=== PATIENT | female | born 1940 | race Caucasian/White ===

== ENCOUNTER 2017-02-02 16:28 | Inpatient (IN) | payer MEDICARE, OTHER ==
[2017-02-02] MEDS ORDERED: methylPREDNISolone Sodium Succinate 125 MG/2 ML SDV IVPUSH ONE (16:39)
[2017-02-02] MEDS ORDERED: Albuterol/Ipratropium 3.0-0.5 MG/3 ML Neb Soln NEB ONE (16:39)
--- NOTE | 2017-02-02 16:40 | EDM.PDOC ---
ED HPI GENERAL MEDICAL PROBLEM - General Chief Complaint: Respiratory Problem Stated Complaint: SOB [id number] Time Seen by Provider: 02/02/17 16:30 Source of Information: Reports: Patient, Family, RN, RN Notes Reviewed History Limitations: Reports: No Limitations - History of Present Illness INITIAL COMMENTS - FREE TEXT/NARRATIVE: Patient seen in clinic yesterday and started on an antibiotic. Complaint of shortness of breath with cough and wheezing. Denies chest pain or chills. Patient thinks she may have had some low grade fever. Has been using nebulizer, but still getting worse. Does not have home oxygen. Severity: Severe Improves with: Reports: None Associated Symptoms: Reports: No Other Symptoms - Related Data Allergies Allergy/AdvReac Type Severity Reaction Status Date / Time No Known Allergies Allergy Verified 12/21/15 20:05 Home Meds: Home Meds Fluticasone/Salmeterol [Advair 100-50] 2 puff INH BID PRN 07/28/13 [History] Tiotropium [Spiriva Handihaler] 1 puff INH DAILY 07/28/13 [History] Warfarin [Coumadin] 7.5 mg PO DAILY 07/28/13 [History] Albuterol [Proventil HFA] 2 puff INH Q4H PRN 03/26/14 [History] Levothyroxine [Synthroid] 50 mcg PO ACBRK 03/26/14 [History] Sertraline [Zoloft] 25 mg PO DAILY 03/26/14 [History] Gluc HCl/Csa/[place] Hy/Hyalur Ac [Glucosamine Chondroitin] 2 tab PO DAILY [History] Ipratropium/Albuterol Sulfate [Duoneb 0.5 mg-3 mg/3 ml Soln] 1 ampule INH Q4HR PRN 05/01/14 [History] Multivitamin [Multivitamins] 1 tab PO DAILY 05/01/14 [History] Rolaids 2 tab.chew CHEW ASDIRECTED PRN 05/01/14 [History] atorvaSTATin Calcium [Atorvastatin Calcium] 20 mg PO DAILY 12/21/15 [History] Past Medical History HEENT History: Reports: Cataract, Impaired Vision, Other (See Below) Other HEENT History: very early cataracts Cardiovascular History: Reports: High Cholesterol Respiratory History: Reports: Asthma, Bronchitis, Recurrent, COPD, SOB 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: 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: 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: Musculoskeletal History: Reports: Arthritis, Fracture, Other (See Below) Other Musculoskeletal History: history of fractured wrist (right), fractured clavicle Neurological History: Reports: CVA Psychiatric History: Reports: Anxiety, Depression Endocrine/Metabolic History: Reports: Hypothyroidism - Past Surgical History HEENT Surgical History: Reports: Tonsillectomy GI Surgical History: Reports: Appendectomy Female Surgical History: Reports: D&C Social & Family History - Family History Family Medical History: Noncontributory - Tobacco Use Smoking Status *Q: Current Every Day Smoker Years of Tobacco use: 58 Packs/Tins Daily: 1 Used Tobacco, but Quit: No Second Hand Smoke Exposure: Yes - Caffeine Use Caffeine Use: Reports: Coffee - Alcohol Use Days Per Week of Alcohol Use: 0 - Recreational Drug Use Recreational Drug Use: No - Living Situation & Occupation Living situation: Reports: with Family ED ROS GENERAL - Review of Systems Review Of Systems: ROS reveals no pertinent complaints other than HPI. ED EXAM, GENERAL - Physical Exam Exam: See Below Exam Limited By: No Limitations General Appearance: Other (frail, elderly, chronically ill appearing, thin with increased work of breathing.) Eye Exam: Bilateral Eye: Normal Inspection Ears: Normal External Exam, Normal Canal, Hearing Grossly Normal, Normal TMs Nose: Normal Inspection, Normal Mucosa, No Blood Throat/Mouth: Other (dry oral membranes) Head: Atraumatic, Normocephalic Neck: Normal Inspection, Supple, Non-Tender, Full Range of Motion Respiratory/Chest: Decreased Breath Sounds (significant decreased bibasilar breath sounds. Course breath sounds with ispiratory/expiratory wheezes throughout. ) Cardiovascular: Tachycardia, Irregularly Irregular GI/Abdominal: Normal Bowel Sounds, Soft, Non-Tender, No Organomegaly, No Distention, No Abnormal Bruit, No Mass Back Exam: Normal Inspection, Full Range of Motion, NT Extremities: Normal Inspection, Normal Range of Motion, Non-Tender, Normal Capillary Refill, No Pedal Edema Neurological: Alert, Oriented, CN II-XII Intact, Normal Cognition, Normal Gait, Normal Reflexes, No Motor/Sensory Deficits Psychiatric: Anxious Skin Exam: Warm, Dry, Intact, Normal Color, No Rash Lymphatic: No Adenopathy EKG INTERPRETATION EKG Date: 02/02/17 Time: 16:43 Rhythm: a-fib (with rapid ventricualr rate.) Rate (beats/min): 151 [place]: normal P-wave: present QRS: RBBB (borderline) ST-T: normal QT: normal Course - Vital Signs Last Recorded V/S: Last Vital Signs Temp Pulse 144 H 02/02/17 16:55 Resp BP Pulse Ox 90 L 02/02/17 16:55 - Orders/Labs/Meds Orders: Active Orders 24 hr Category Date Time Status EKG 12 Lead [EKG Documentation Completion] [RC] STAT Care 02/02/17 16:38 Active Overnight Pulse Oximetry [RC] Click To Edit Care 02/02/17 16:39 Active Peripheral IV Care [RC] . DIRECTED Care 02/02/17 16:39 Active RT Aerosol Therapy [RC] ASDIRECTED Care 02/02/17 16:40 Active Chest 1V Frontal [CR] Stat Exams 02/02/17 16:38 Taken CULTURE BLOOD [BC] Stat Lab 02/02/17 16:50 Received CULTURE BLOOD [BC] Stat Lab 02/02/17 16:55 Received UA W/MICROSCOPIC [URIN] Stat Lab 02/02/17 16:38 Uncollected Diltiazem [Cardizem] 100 mg Med 02/02/17 17:45 Active Sodium Chloride 0.9% [Normal Saline] 100 ml IV TITRATE Levofloxacin/Dextrose 5%-Water [Levaquin in D5W 500 MG/ Med 02/02/17 16:52 Active 100 ML] 500 mg Premix Bag 1 bag IV ONETIME Sodium Chloride 0.9% [Saline Flush] Med 02/02/17 16:38 Active 10 ml FLUSH ASDIRECTED PRN Blood Culture x2 Reflex Set [OM.PC] Stat Oth 02/02/17 16:38 Ordered Peripheral IV Insertion Adult [OM.PC] Stat Oth 02/02/17 16:38 Ordered Pulse Oximetry Continuous Monitoring [OM.PC] Routine Oth 02/02/17 16:38 Ordered RT Supplemental Oxygen Titration [RESPCARE] Stat Oth 02/02/17 16:38 Active Medication Orders Levofloxacin/Dextrose 500 mg/ (Premix) 100 mls @ 100 mls/hr IV ONETIME ONE Stop: 02/02/17 17:51 Last Admin: 02/02/17 17:04 Dose: 100 mls/hr Diltiazem HCl 100 mg/ Sodium (Chloride) 100 mls @ 5 mls/hr IV TITRATE FLORENCIO; 5 MG /HR PRN Reason: Protocol Sodium Chloride (Saline Flush) 10 ml FLUSH ASDIRECTED PRN PRN Reason: Keep Vein Open Last Admin: 02/02/17 16:59 Dose: 10 ml Labs: Laboratory Tests 02/02/17 02/02/17 02/02/17 Range/Units 16:50 16:50 16:55 WBC 13.2 H (5.0-10.0) 10^3/uL RBC 4.71 (4.2-5.4) 10^6/uL Hgb 14.3 (12.0-16.0) g/dL Hct 43.6 (37.0-47.0) % MCV 92.6 (80-100) fL MCH 30.4 (27.0-34.0) pg MCHC 32.8 L (33.0-35.0) g/dL Plt Count 222 (150-450) 10^3/uL Neut % (Auto) 88.6 H (42.2-75.2) % Lymph % (Auto) 5.3 L (20.5-50.1) % [place] % (Auto) 5.8 (2-8) % Eos % (Auto) 0.1 L (1.0-3.0) % Baso % (Auto) 0.2 (0.0-1.0) % PT 33.9 H (9.0-12.0) SEC INR 3.4 H (0.9-1.2) Sodium (135-145) mmol/L Potassium (3.6-5.0) mmol/L Chloride (101-111) mmol/L Carbon Dioxide (21.0-31.0) mmol/L Anion Gap BUN (7-18) mg/dL Creatinine (0.6-1.3) mg/dL Est Cr Clr Drug Dosing Estimated GFR (MDRD) BUN/Creatinine Ratio Glucose (74-105) mg/dL Lactic Acid 1.8 (0.5-2.2) mmol/L Calcium (8.4-10.2) mg/dl Total Bilirubin (0.2-1.0) mg/dL AST (10-42) IU/L ALT (10-60) IU/L Alkaline Phosphatase (42-121) IU/L Troponin I (0.00-0.02) ng/ml B-Natriuretic Peptide (0-100) pg/ml Total Protein (6.7-8.2) g/dl Albumin (3.2-5.5) g/dl Globulin Albumin/Globulin Ratio 02/02/17 Range/Units 16:55 WBC (5.0-10.0) 10^3/uL RBC (4.2-5.4) 10^6/uL Hgb (12.0-16.0) g/dL Hct (37.0-47.0) % MCV (80-100) fL MCH (27.0-34.0) pg MCHC (33.0-35.0) g/dL Plt Count (150-450) 10^3/uL Neut % (Auto) (42.2-75.2) % Lymph % (Auto) (20.5-50.1) % [place] % (Auto) (2-8) % Eos % (Auto) (1.0-3.0) % Baso % (Auto) (0.0-1.0) % PT (9.0-12.0) SEC INR (0.9-1.2) Sodium 138 (135-145) mmol/L Potassium 4.0 (3.6-5.0) mmol/L Chloride 101 (101-111) mmol/L Carbon Dioxide 27.0 (21.0-31.0) mmol/L Anion Gap 14.0 BUN 10 (7-18) mg/dL Creatinine 0.6 (0.6-1.3) mg/dL Est Cr Clr Drug Dosing TNP Estimated GFR (MDRD) > 60 BUN/Creatinine Ratio 16.66 Glucose 121 H (74-105) mg/dL Lactic Acid (0.5-2.2) mmol/L Calcium 9.0 (8.4-10.2) mg/dl Total Bilirubin 0.8 (0.2-1.0) mg/dL AST 25 (10-42) IU/L ALT 22 (10-60) IU/L Alkaline Phosphatase 54 (42-121) IU/L Troponin I 0.02 (0.00-0.02) ng/ml B-Natriuretic Peptide 34 (0-100) pg/ml Total Protein 7.2 (6.7-8.2) g/dl Albumin 4.2 (3.2-5.5) g/dl Globulin 3.0 Albumin/Globulin Ratio 1.40 Meds: Medications Generic Name Dose Route Start Last Admin Trade Name Freq PRN Reason Stop Dose Admin Levofloxacin/Dextrose 500 mg/ 100 mls @ 100 mls/hr 02/02/17 16:52 02/02/17 17 :04 Premix IV 02/02/17 17:51 100 mls/hr ONETIME ONE Administration Diltiazem HCl 100 mg/ Sodium 100 mls @ 5 mls/hr 02/02/17 17:45 Chloride IV TITRATE FLORENCIO Protocol 5 MG/HR Sodium Chloride 10 ml 02/02/17 16:38 02/02/17 16:59 Saline Flush FLUSH 10 ml ASDIRECTED PRN Administration Keep Vein Open Discontinued Medications Generic Name Dose Route Start Last Admin Trade Name Freq PRN Reason Stop Dose Admin Albuterol/Ipratropium 3 ml 02/02/17 16:39 02/02/17 16:59 Duoneb 3.0-0.5 Mg/3 Ml NEB 02/02/17 16:40 3 ml ONETIME ONE Administration Diltiazem HCl 10 mg 02/02/17 16:52 02/02/17 17:00 Diltiazem IVPUSH 02/02/17 16:53 10 mg ONETIME ONE Administration Diltiazem HCl 10 mg 02/02/17 17:37 Diltiazem IVPUSH 02/02/17 17:38 ONETIME ONE Hydromorphone HCl 1 mg 02/02/17 17:36 Dilaudid IVPUSH 02/02/17 17:37 ONETIME ONE Methylprednisolone Sodium Succinate 125 mg 02/02/17 16:39 02/02/17 16:59 Solu-Medrol IVPUSH 02/02/17 16:40 125 mg ONETIME ONE Administration - Radiology Interpretation Free Text/Narrative:: Chest x-ray: Large lung volumes/hyperinflation, flattened diaphragms, chronic COPD changes, basilar scarring versus atelectasis and no focal infiltrates. See rad report. Departure - Departure Time of Disposition: 17:38 ((Admit to Dr. Gonzales)) Disposition: Admitted As Inpatient 68 Condition: serious Clinical Impression: Acute exacerbation of chronic obstructive pulmonary disease, Atrial fibrillation with rapid ventricular response Acute on chronic respiratory failure Qualifiers: Respiratory failure complication: hypoxia Qualified Code(s): J96.21 - Acute and chronic respiratory failure with hypoxia - Discharge Information Forms: ED Department Discharge - My Orders Last 24 Hours: My Active Orders 02/02/17 16:38 EKG 12 Lead [EKG Documentation Completion] [RC] STAT Chest 1V Frontal [CR] Stat UA W/MICROSCOPIC [URIN] Stat Sodium Chloride 0.9% [Saline Flush] 10 ml FLUSH ASDIRECTED PRN Blood Culture x2 Reflex Set [OM.PC] Stat Peripheral IV Insertion Adult [OM.PC] Stat Pulse Oximetry Continuous Monitoring [OM.PC] Routine RT Supplemental Oxygen Titration [RESPCARE] Stat 02/02/17 16:39 Overnight Pulse Oximetry [RC] Click To Edit Peripheral IV Care [RC] . DIRECTED 02/02/17 16:40 RT Aerosol Therapy [RC] ASDIRECTED 02/02/17 16:50 CULTURE BLOOD [BC] Stat 02/02/17 16:52 Levofloxacin/Dextrose 5%-Water [Levaquin in D5W 500 MG/100 ML] 500 mg Premix Bag 1 bag IV ONETIME 02/02/17 16:55 CULTURE BLOOD [BC] Stat 02/02/17 17:45 Diltiazem [Cardizem] 100 mg Sodium Chloride 0.9% [Normal Saline] 100 ml IV TITRATE - Assessment/Plan Last 24 Hours: My Active Orders 02/02/17 16:38 EKG 12 Lead [EKG Documentation Completion] [RC] STAT Chest 1V Frontal [CR] Stat UA W/MICROSCOPIC [URIN] Stat Sodium Chloride 0.9% [Saline Flush] 10 ml FLUSH ASDIRECTED PRN Blood Culture x2 Reflex Set [OM.PC] Stat Peripheral IV Insertion Adult [OM.PC] Stat Pulse Oximetry Continuous Monitoring [OM.PC] Routine RT Supplemental Oxygen Titration [RESPCARE] Stat 02/02/17 16:39 Overnight Pulse Oximetry [RC] Click To Edit Peripheral IV Care [RC] . DIRECTED 02/02/17 16:40 RT Aerosol Therapy [RC] ASDIRECTED 02/02/17 16:50 CULTURE BLOOD [BC] Stat 02/02/17 16:52 Levofloxacin/Dextrose 5%-Water [Levaquin in D5W 500 MG/100 ML] 500 mg Premix Bag 1 bag IV ONETIME 02/02/17 16:55 CULTURE BLOOD [BC] Stat 02/02/17 17:45 Diltiazem [Cardizem] 100 mg Sodium Chloride 0.9% [Normal Saline] 100 ml IV TITRATE
[2017-02-02] MEDS ORDERED: Diltiazem 25 MG/5 ML SDV IVPUSH ONE ×2 (16:52→17:37)
[2017-02-02] MEDS ORDERED: Levofloxacin/Dextrose 5%-Water 500 MG in Premix Bag 1 BAG IV ONE (16:52)
[2017-02-02] MEDS: Sodium Chloride 0.9% 10 ML Syringe FLUSH PRN ×4 (16:59→22:42)
[2017-02-02 17:23] LABS: CHLORIDE,CL 101 mmol/L (101-111); SODIUM,NA 138 mmol/L (135-145)
[2017-02-02] MEDS ORDERED: HYDROmorphone 1 MG/ML Syringe IVPUSH ONE (17:36)
[2017-02-02] MEDS ORDERED: Sodium Chloride 0.9% 1,000 ML IV ONE (17:41)
[2017-02-02] MEDS ORDERED: Diltiazem 100 MG in Sodium Chloride 0.9% 100 ML IV SCH (17:45)
[2017-02-02] MEDS ORDERED: Albuterol 0.083% 2.5 MG/3 ML Neb Soln NEB PRN (18:24)
[2017-02-02] MEDS ORDERED: Docusate Sodium 100 MG Cap PO PRN (18:27)
[2017-02-02] MEDS ORDERED: Ondansetron 4 MG Tab.DIS PO PRN (18:27)
[2017-02-02] MEDS ORDERED: Acetaminophen 325 MG Tab PO PRN (18:27)
[2017-02-02] MEDS ORDERED: Zolpidem 5 MG Tab PO PRN (18:27)
[2017-02-02] MEDS ORDERED: Sodium Chloride 0.9% 10 ML Syringe FLUSH PRN (18:27)
--- NOTE | 2017-02-02 18:35 | PCM.HP ---
H&P History of Present Illness - General Date of Service: 02/02/17 Admit Problem/Dx: Admission Diagnosis/Problem Admission Diagnosis/Problem COPD, Severe chronic obstructive pulmonary disease Source of Information: Patient - History of Present Illness Initial Comments - Free Text/Narative: 76-year-old lady with a history of severe COPD, continued smoking, history of CVA on long-term anticoagulation and anxiety presented with increasing shortness of breath over 7-10 days. She is increasingly weak, limited exercise tolerance. Shortness of breath is worse with activity, not associated with fever or maybe low grade, has chronic cough unchanged. No sputum went to the clinic yesterday, was given antibiotics. Shortness of breath continued and she came to the emergency room. - Related Data Allergies/Adverse Reactions: Allergies Allergy/AdvReac Type Severity Reaction Status Date / Time No Known Allergies Allergy Verified 02/02/17 18:13 Home Medications: Home Meds Fluticasone/Salmeterol [Advair 100-50] 2 puff INH BID PRN 07/28/13 [History] Tiotropium [Spiriva Handihaler] 1 puff INH DAILY 07/28/13 [History] Warfarin [Coumadin] 7.5 mg PO DAILY 07/28/13 [History] Albuterol [Proventil HFA] 2 puff INH Q4H PRN 03/26/14 [History] Levothyroxine [Synthroid] 50 mcg PO ACBRK 03/26/14 [History] Sertraline [Zoloft] 25 mg PO DAILY 03/26/14 [History] Gluc HCl/Csa/[place] Hy/Hyalur Ac [Glucosamine Chondroitin] 2 tab PO DAILY [History] Ipratropium/Albuterol Sulfate [Duoneb 0.5 mg-3 mg/3 ml Soln] 1 ampule INH Q4HR PRN 05/01/14 [History] Multivitamin [Multivitamins] 1 tab PO DAILY 05/01/14 [History] Rolaids 2 tab.chew CHEW ASDIRECTED PRN 05/01/14 [History] atorvaSTATin Calcium [Atorvastatin Calcium] 20 mg PO DAILY 12/21/15 [History] Past Medical History HEENT History: Reports: Cataract, Impaired Vision, Other (See Below) Other HEENT History: very early cataracts Cardiovascular History: Reports: High Cholesterol Respiratory History: Reports: Asthma, Bronchitis, Recurrent, COPD, SOB 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: Reports: 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: Musculoskeletal History: Reports: Arthritis, Fracture, Other (See Below) Other Musculoskeletal History: history of fractured wrist (right), fractured clavicle Neurological History: Reports: CVA Psychiatric History: Reports: Anxiety, Depression Endocrine/Metabolic History: Reports: Hypothyroidism - Past Surgical History HEENT Surgical History: Reports: Tonsillectomy GI Surgical History: Reports: Appendectomy Female Surgical History: Reports: D&C Social & Family History - Family History Family Medical History: Noncontributory - Tobacco Use Smoking Status *Q: Current Every Day Smoker Years of Tobacco use: 58 Packs/Tins Daily: 1 Used Tobacco, but Quit: No Second Hand Smoke Exposure: Yes - Caffeine Use Caffeine Use: Reports: Coffee - Alcohol Use Days Per Week of Alcohol Use: 0 - Recreational Drug Use Recreational Drug Use: No - Living Situation & Occupation Living situation: Reports: with Family H&P Review of Systems - Review of Systems: Review Of Systems: See Below General: Reports: Fever (maybe low-grade), Weakness. Denies: Chills Pulmonary: Reports: Shortness of Breath, Wheezing, Cough. Denies: Sputum Cardiovascular: Denies: Chest Pain Gastrointestinal: Denies: Abdominal Pain Genitourinary: Denies: Dysuria Musculoskeletal: Denies: Neck Pain Psychiatric: Denies: Confusion Exam - Exam Exam: See Below - Vital Signs Vital Signs: Last Vital Signs Temp 37.4 C 02/02/17 18:19 Pulse 125 H 02/02/17 18:19 Resp 24 H 02/02/17 18:19 BP 134/63 02/02/17 18:19 Pulse Ox 94 L 02/02/17 18:19 Weight: 45.359 kg - Exam Quality Assessment: Supplemental Oxygen General: Alert, Oriented Neck: Supple Lungs: Decreased Breath Sounds. No: Normal Respiratory Effort (increased respiratory effort) Cardiovascular: Regular Rate, Tachycardia Abdomen: Normal Bowel Sounds, Soft Back Exam: Normal Inspection Skin: Warm, Dry, Intact Neuro Extensive - Mental Status: Alert, Oriented x3, Normal Mood/Affect, Normal Cognition Psychiatric: Alert, Normal Affect, Normal Mood - Patient Data Result Diagrams: 02/02/17 16:55 02/02/17 16:55 EKG INTERPRETATION EKG Date: 02/02/17 Rhythm: other (sinus tachycardia) *Q Meaningful Use (ADM) - VTE *Q VTE Criteria *Q: - Stroke *Q Stroke Criteria *Q: - AMI *Q AMI Criteria *Q: - Problem List (1) Acute exacerbation of chronic obstructive pulmonary disease SNOMED Code(s): 895793416 ICD Code: J44.1 - CHRONIC OBSTRUCTIVE PULMONARY DISEASE W (ACUTE) EXACERBATION Status: Acute Current Visit: Yes (2) Acute on chronic respiratory failure SNOMED Code(s): 88112150, 09689727 ICD Code: J96.20 - ACUTE AND CHR RESP FAILURE, UNSP W HYPOXIA OR HYPERCAPNIA Status: Acute Current Visit: Yes Qualifiers: Respiratory failure complication: hypoxia Qualified Code(s): J96.21 - Acute and chronic respiratory failure with hypoxia Problem List Initiated/Reviewed/Updated: Yes Orders Last 24hrs: Active Orders 24 hr Category Date Time Status Patient Status [ADT] Routine ADT 02/02/17 18:28 Ordered Antiembolic Devices [RC] PER UNIT ROUTINE Care 02/02/17 18:29 Ordered Oxygen Therapy [RC] PRN Care 02/02/17 18:28 Ordered RT Aerosol Therapy [RC] ASDIRECTED Care 02/02/17 18:22 Ordered Telemetry Monitoring [Cardiac Monitoring] [RC] . Care 02/02/17 18:24 Ordered DIRECTED Up With Assistance [RC] ASDIRECTED Care 02/02/17 18:27 Ordered VTE/DVT Education [RC] PER UNIT ROUTINE Care 02/02/17 18:28 Ordered Vital Signs [RC] Q4H Care 02/02/17 18:28 Ordered Regular Diet [DIET] Diet 02/02/17 Breakfast Ordered BASIC METABOLIC PANEL,BMP [CHEM] AM Lab 02/03/17 05:15 Ordered CBC WITH AUTO DIFF [HEME] AM Lab 02/03/17 05:15 Ordered CULTURE SPUTUM + SMEAR [RM] Routine Lab 02/02/17 18:27 Uncollected INR,PT,PROTHROMBIN TIME [COAG] AM Lab 02/03/17 05:15 Ordered Acetaminophen [Tylenol] Med 02/02/17 18:27 Ordered 650 mg PO Q4H PRN Albuterol [Proventil Neb Soln] Med 02/02/17 18:24 Ordered 2.5 mg NEB Q4HRRT PRN Albuterol/Ipratropium [DuoNeb 3.0-0.5 MG/3 ML] Med 02/03/17 01:00 Ordered 3 ml NEB Q6HRRT Azithromycin [Zithromax] 500 mg Med 02/03/17 07:00 Ordered Sodium Chloride 0.9% [Normal Saline] 250 ml IV Q24H Docusate Sodium [Colace] Med 02/02/17 18:27 Ordered 100 mg PO BID PRN Levothyroxine [Synthroid] Med 02/02/17 18:30 Ordered 50 mcg PO ACBRK Multivitamin [Multivitamins] Med 02/03/17 09:00 Ordered 1 tab PO DAILY Ondansetron [Zofran ODT] Med 02/02/17 18:27 Ordered 4 mg PO Q4H PRN Sertraline [Zoloft] Med 02/03/17 09:00 Ordered 25 mg PO DAILY Sodium Chloride 0.9% [Saline Flush] Med 02/02/17 18:27 Ordered 10 ml FLUSH ASDIRECTED PRN Warfarin Pharmacy to Dose [Pharmacy to Dose - Warfarin] Med 02/02/17 18:30 Ordered 1 dose .XX ASDIRECTED Zolpidem [Ambien] Med 02/02/17 18:27 Ordered 5 mg PO BEDTIME PRN atorvaSTATin [Lipitor] Med 02/03/17 09:00 Ordered 20 mg PO DAILY cefTRIAXone [Rocephin] 1 gm Med 02/03/17 07:00 Ordered Sodium Chloride 0.9% [Normal Saline] 50 ml IV Q24H methylPREDNISolone Sod Succ [Solu-MEDROL] Med 02/02/17 22:00 Ordered 40 mg IVPUSH Q8H Saline Lock Insert [OM.PC] Routine Oth 02/02/17 18:27 Ordered Sequential Compression Device [OM.PC] Per Unit Routine Oth 02/02/17 18:29 Ordered Resuscitation Status Routine Resus Stat 02/02/17 18:27 Ordered Medication Orders Acetaminophen (Tylenol) 650 mg PO Q4H PRN PRN Reason: Pain (Mild 1-3)/fever Albuterol (Proventil Neb Soln) 2.5 mg NEB Q4HRRT PRN PRN Reason: sob Albuterol/Ipratropium (Duoneb 3.0-0.5 Mg/3 Ml) 3 ml NEB Q6HRRT FLORENCIO Atorvastatin Calcium (Lipitor) 20 mg PO DAILY FLORENCIO Docusate Sodium (Colace) 100 mg PO BID PRN PRN Reason: Constipation Sodium Chloride (Normal Saline) 1,000 mls @ 999 mls/hr IV .BOLUS ONE Stop: 02/02/17 18:41 Last Admin: 02/02/17 18:14 Dose: 999 mls/hr Azithromycin 500 mg/ Sodium (Chloride) 250 mls @ 250 mls/hr IV Q24H [facility] Ceftriaxone Sodium 1 gm/ (Sodium Chloride) 50 mls @ 100 mls/hr IV Q24H FLORENCIO Levothyroxine Sodium (Synthroid) 50 mcg PO ACBRK FLORENCIO Methylprednisolone Sodium Succinate (Solu-Medrol) 40 mg IVPUSH Q8H [facility] Non-Formulary Medication (Multivitamin [Multivitamins]) 1 tab PO DAILY [facility] Non-Formulary Medication (Sertraline [Zoloft]) 25 mg PO DAILY [facility] Ondansetron HCl (Zofran Odt) 4 mg PO Q4H PRN PRN Reason: nausea, able to take PO Sodium Chloride (Saline Flush) 10 ml FLUSH ASDIRECTED PRN PRN Reason: Keep Vein Open Last Admin: 02/02/17 16:59 Dose: 10 ml Sodium Chloride (Saline Flush) 10 ml FLUSH ASDIRECTED PRN PRN Reason: Keep Vein Open Warfarin Sodium (Pharmacy To Dose - Warfarin) 1 dose .XX ASDIRECTED [facility] Zolpidem Tartrate (Ambien) 5 mg PO BEDTIME PRN PRN Reason: Sleep Assessment/Plan Comment:: Acute COPD exacerbation With a history of severe COPD Baseline FEV1 is 28% At home she is on Spiriva, dulera and albuterol, exercise and it is about one block per Dr. Yepez Start IV SoluMedrol Scheduled DuoNeb nebulizer Use p.r.n. albuterol For now hold the Spiriva and Dulera Leukocytosis This may be stress reaction, possible upper respiratory tract infection Treat empirically with Rocephin and azithromycin Obtain sputum culture Smoking This is importance of cessation Does not want a nicotine patch Acute on chronic hypoxemic respiratory failure will supplement oxygen Might need walking desaturation study before discharge Sinus tachycardia Monitor on telemetry Follow with the nebulizers, Improve respiratory failure History of prior stroke On Coumadin Monitor INR Adjust Coumadin for target INR of 2-3 Dyslipidemia Continue statin Anxiety Continue Zoloft DVT prophylaxis is with full dose anticoagulation with Coumadin
[2017-02-02] MEDS: Levothyroxine 50 MCG Tab PO SCH (20:00)
[2017-02-02] MEDS: methylPREDNISolone Sodium Succinate 40 MG/1 ML SDV IVPUSH SCH (22:35)
[2017-02-03] MEDS: Albuterol/Ipratropium 3.0-0.5 MG/3 ML Neb Soln NEB SCH ×5 (00:43→17:07)
[2017-02-03] MEDS: Sodium Chloride 0.9% 10 ML Syringe FLUSH PRN ×5 (05:51→22:07)
[2017-02-03] MEDS: methylPREDNISolone Sodium Succinate 40 MG/1 ML SDV IVPUSH SCH ×3 (05:52→22:07)
[2017-02-03] MEDS: Levothyroxine 50 MCG Tab PO SCH (05:58)
[2017-02-03] MEDS: cefTRIAXone 1 GM in Sodium Chloride 0.9% 50 ML IV SCH (06:05)
[2017-02-03] MEDS ORDERED: Azithromycin 500 MG Vial ONE (06:19)
[2017-02-03] MEDS: Azithromycin 500 MG in Sodium Chloride 0.9% 250 ML IV SCH (06:37)
[2017-02-03 07:15] LABS: CHLORIDE,CL 104 mmol/L (101-111); SODIUM,NA 139 mmol/L (135-145)
[2017-02-03] MEDS: Multivitamins,Therapeutic Tab PO SCH (09:02)
[2017-02-03] MEDS: atorvaSTATin 20 MG Tab PO SCH (09:02)
[2017-02-03] MEDS: Sertraline 50 MG Tab PO SCH (09:03)
--- NOTE | 2017-02-03 10:46 | PCM.PN ---
- General Info Date of Service: 02/03/17 Admission Dx/Problem (Free Text): Admission Diagnosis/Problem Admission Diagnosis/Problem COPD, Severe chronic obstructive pulmonary disease Subjective Update: feeling better. Less shortness of breath but still moderate to severe. nonproductive cough. Telemetry showed sinus rhythm, not tachycardic. No associated chest pain. No fever or chills. Functional Status: Reports: tolerating diet - Review of Systems General: Reports: Weakness. Denies: Fever Pulmonary: Reports: shortness of breath Cardiovascular: Denies: Chest Pain Gastrointestinal: Denies: Abdominal pain Genitourinary: Denies: dysuria - Patient Data Vitals - most recent: Last Vital Signs Temp 36.6 C 02/03/17 08:17 Pulse 100 02/03/17 08:17 Resp 24 H 02/03/17 08:17 BP 131/59 L 02/03/17 08:17 Pulse Ox 97 02/03/17 08:17 Weight - most recent: 45.359 kg I&O - last 24 hours: Intake & Output 02/02/17 02/03/17 02/03/17 22:59 06:59 14:59 Intake Total 1002 42 400 Output Total 1150 Balance 1002 42 -750 Lab Results last 24 hrs: Laboratory Results - last 24 hr 02/02/17 02/03/17 02/03/17 Range/Units 20:35 06:33 06:33 WBC 11.3 H (5.0-10.0) 10^3/uL RBC 4.15 L (4.2-5.4) 10^6/uL Hgb 12.4 (12.0-16.0) g/dL Hct 38.8 (37.0-47.0) % MCV 93.5 (80-100) fL MCH 29.9 (27.0-34.0) pg MCHC 32.0 L (33.0-35.0) g/dL Plt Count 185 (150-450) 10^3/uL Neut % (Auto) 92.1 H (42.2-75.2) % Lymph % (Auto) 5.4 L (20.5-50.1) % [place] % (Auto) 2.4 (2-8) % Eos % (Auto) 0.0 L (1.0-3.0) % Baso % (Auto) 0.1 (0.0-1.0) % PT 37.3 H (9.0-12.0) SEC INR 3.7 H (0.9-1.2) Sodium (135-145) mmol/L Potassium (3.6-5.0) mmol/L Chloride (101-111) mmol/L Carbon Dioxide (21.0-31.0) mmol/L Anion Gap BUN (7-18) mg/dL Creatinine (0.6-1.3) mg/dL Est Cr Clr Drug Dosing mL/min Estimated GFR (MDRD) Glucose (74-105) mg/dL Calcium (8.4-10.2) mg/dl Urine Color Light yellow (YELLOW) Urine Appearance Slightly cloudy (CLEAR) Urine pH 6.0 (5.0-9.0) Ur Specific [place] 1.010 (1.005-1.030) Urine Protein Negative (NEGATIVE) Urine Glucose (UA) Negative (NEGATIVE) Urine Ketones Negative (NEGATIVE) Urine Occult Blood Small H (NEGATIVE) Urine Nitrite Negative (NEGATIVE) Urine Bilirubin Negative (NEGATIVE) Urine Urobilinogen 0.2 (0.2-1.0) mg/dL Ur Leukocyte Esterase Negative (NEGATIVE) Urine RBC 0-5 /HPF Urine WBC 0-5 (0-5/HPF) /HPF Ur Epithelial Cells Rare /HPF Amorphous Sediment Rare (0/HPF) /HPF Urine Bacteria Rare (0-FEW/HPF) /HPF //17 Range/Units 06:33 WBC (5.0-10.0) 10^3/uL RBC (4.2-5.4) 10^6/uL Hgb (12.0-16.0) g/dL Hct (37.0-47.0) % MCV (80-100) fL MCH (27.0-34.0) pg MCHC (33.0-35.0) g/dL Plt Count (150-450) 10^3/uL Neut % (Auto) (42.2-75.2) % Lymph % (Auto) (20.5-50.1) % [place] % (Auto) (2-8) % Eos % (Auto) (1.0-3.0) % Baso % (Auto) (0.0-1.0) % PT (9.0-12.0) SEC INR (0.9-1.2) Sodium 139 (135-145) mmol/L Potassium 3.9 (3.6-5.0) mmol/L Chloride 104 (101-111) mmol/L Carbon Dioxide 27.0 (21.0-31.0) mmol/L Anion Gap 11.9 BUN 12 (7-18) mg/dL Creatinine 0.6 (0.6-1.3) mg/dL Est Cr Clr Drug Dosing 58.90 mL/min Estimated GFR (MDRD) > 60 Glucose 135 H (74-105) mg/dL Calcium 8.9 (8.4-10.2) mg/dl Urine Color (YELLOW) Urine Appearance (CLEAR) Urine pH (5.0-9.0) Ur Specific [place] (1.005-1.030) Urine Protein (NEGATIVE) Urine Glucose (UA) (NEGATIVE) Urine Ketones (NEGATIVE) Urine Occult Blood (NEGATIVE) Urine Nitrite (NEGATIVE) Urine Bilirubin (NEGATIVE) Urine Urobilinogen (0.2-1.0) mg/dL Ur Leukocyte Esterase (NEGATIVE) Urine RBC /HPF Urine WBC (0-5/HPF) /HPF Ur Epithelial Cells /HPF Amorphous Sediment (0/HPF) /HPF Urine Bacteria (0-FEW/HPF) /HPF Med Orders - Current: Current Medications Acetaminophen (Tylenol) 650 mg PO Q4H PRN PRN Reason: Pain (Mild 1-3)/fever Albuterol (Proventil Neb Soln) 2.5 mg NEB Q4HRRT PRN PRN Reason: sob Albuterol/Ipratropium (Duoneb 3.0-0.5 Mg/3 Ml) 3 ml NEB Q6HRRT [facility] Last Admin: 02/03/17 07:20 Dose: 3 ml Atorvastatin Calcium (Lipitor) 20 mg PO DAILY [facility] Last Admin: 02/03/17 09:02 Dose: 20 mg Budesonide (Pulmicort) 0.5 mg NEB BIDRT [facility] Docusate Sodium (Colace) 100 mg PO BID PRN PRN Reason: Constipation Azithromycin 500 mg/ Sodium (Chloride) 250 mls @ 250 mls/hr IV Q24H [facility] Last Admin: 02/03/17 06:37 Dose: 250 mls/hr Ceftriaxone Sodium 1 gm/ (Sodium Chloride) 50 mls @ 100 mls/hr IV Q24H [facility] Last Admin: 02/03/17 06:05 Dose: 100 mls/hr Levothyroxine Sodium (Synthroid) 50 mcg PO ACBRK [facility] Last Admin: 02/03/17 05:58 Dose: 50 mcg Methylprednisolone Sodium Succinate (Solu-Medrol) 40 mg IVPUSH Q8H [facility] Last Admin: 02/03/17 05:52 Dose: 40 mg Multivitamins (Thera) 1 each PO DAILY [facility] Last Admin: 02/03/17 09:02 Dose: 1 each Ondansetron HCl (Zofran Odt) 4 mg PO Q4H PRN PRN Reason: nausea, able to take PO Sertraline HCl (Zoloft) 25 mg PO DAILY [facility] Last Admin: 02/03/17 09:03 Dose: 25 mg Sodium Chloride (Saline Flush) 10 ml FLUSH ASDIRECTED PRN PRN Reason: Keep Vein Open Last Admin: 02/03/17 06:36 Dose: 10 ml Sodium Chloride (Saline Flush) 10 ml FLUSH ASDIRECTED PRN PRN Reason: Keep Vein Open Warfarin Sodium (Pharmacy To Dose - Warfarin) 1 dose .XX ASDIRECTED [facility] Zolpidem Tartrate (Ambien) 5 mg PO BEDTIME PRN PRN Reason: Sleep Discontinued Medications Albuterol/Ipratropium (Duoneb 3.0-0.5 Mg/3 Ml) 3 ml NEB ONETIME ONE Stop: 02/02/17 16:40 Last Admin: 02/02/17 16:59 Dose: 3 ml Azithromycin (Zithromax) Confirm Administered Dose 500 mg .ROUTE .STK-MED ONE Stop: 02/03/17 06:20 Last Admin: 02/03/17 07:19 Dose: Not Given Diltiazem HCl (Diltiazem) 10 mg IVPUSH ONETIME ONE Stop: 02/02/17 16:53 Last Admin: 02/02/17 17:00 Dose: 10 mg Diltiazem HCl (Diltiazem) 10 mg IVPUSH ONETIME ONE Stop: 02/02/17 17:38 Last Admin: 02/02/17 17:48 Dose: 10 mg Hydromorphone HCl (Dilaudid) 1 mg IVPUSH ONETIME ONE Stop: 02/02/17 17:37 Last Admin: 02/03/17 00:59 Dose: Not Given Levofloxacin/Dextrose 500 mg/ (Premix) 100 mls @ 100 mls/hr IV ONETIME ONE Stop: 02/02/17 17:51 Last Admin: 02/02/17 17:04 Dose: 100 mls/hr Diltiazem HCl 100 mg/ Sodium (Chloride) 100 mls @ 5 mls/hr IV TITRATE FLORENCIO; 5 MG /HR PRN Reason: Protocol Sodium Chloride (Normal Saline) 1,000 mls @ 999 mls/hr IV .BOLUS ONE Stop: 02/02/17 18:41 Last Admin: 02/02/17 18:14 Dose: 999 mls/hr Methylprednisolone Sodium Succinate (Solu-Medrol) 125 mg IVPUSH ONETIME ONE Stop: 02/02/17 16:40 Last Admin: 02/02/17 16:59 Dose: 125 mg - Exam Quality Assessment: supplemental oxygen General: alert, oriented Neck: supple Lungs: Wheezing. No: Normal respiratory effort (increased) Cardiovascular: Regular Rate, Regular Rhythm Extremities: no edema Skin: warm, dry, intact Neurological: no new focal deficit Psy/Mental Status: alert, normal affect, normal mood - Problem List & Annotations (1) Acute exacerbation of chronic obstructive pulmonary disease SNOMED Code(s): 220547946 Code(s): J44.1 - CHRONIC OBSTRUCTIVE PULMONARY DISEASE W (ACUTE) EXACERBATION Status: Acute Current Visit: Yes (2) Acute on chronic respiratory failure SNOMED Code(s): 54976923, 58095013 Code(s): J96.20 - ACUTE AND CHR RESP FAILURE, UNSP W HYPOXIA OR HYPERCAPNIA Status: Acute Current Visit: Yes Qualifiers: Respiratory failure complication: hypoxia Qualified Code(s): J96.21 - Acute and chronic respiratory failure with hypoxia - Problem List Review Problem List Initiated/Reviewed/Updated: Yes - My Orders Last 24 Hours: My Active Orders 02/03/17 07:20 RT Chest Physiotherapy [RC] ASDIRECTED 02/03/17 09:03 RT Aerosol Therapy [RC] 02/03/17 18:00 Budesonide [Pulmicort] 0.5 mg NEB BIDRT 02/04/17 05:15 BASIC METABOLIC PANEL,BMP [CHEM] AM CBC WITH AUTO DIFF [HEME] AM - Plan Plan:: Acute COPD exacerbation With a history of severe COPD Baseline FEV1 is 28% At home she is on Spiriva, dulera and albuterol, exercise and it is about one block per Dr. Yepez continue IV SoluMedrol add Pulmicort Scheduled DuoNeb nebulizer Use p.r.n. albuterol For now hold the Spiriva and Dulera Leukocytosis This may be stress reaction, possible upper respiratory tract infection Treat empirically with Rocephin and azithromycin pending sputum and blood culture Smoking This is importance of cessation Does not want a nicotine patch Acute on chronic hypoxemic respiratory failure will supplement oxygen Might need walking desaturation study before discharge Sinus tachycardia improved Monitor on telemetry Follow with the nebulizers, Improve respiratory failure History of prior stroke On Coumadin Monitor INR Adjust Coumadin for target INR of 2-3 Dyslipidemia Continue statin Anxiety Continue Zoloft DVT prophylaxis is with full dose anticoagulation with Coumadin
[2017-02-03] MEDS ORDERED: Benzonatate 100 MG Cap PO PRN (10:49)
--- NOTE | 2017-02-03 14:57 | EKG ---
02/02/2017- CHRISTIAN HANSEN - EKG per my reading shows sinus tachycardia at the rate of 150s. MOD /[id number]
[2017-02-03] MEDS: Budesonide 0.5 MG/2 ML Neb Susp NEB SCH (17:07)
[2017-02-04] MEDS: Albuterol/Ipratropium 3.0-0.5 MG/3 ML Neb Soln NEB SCH ×2 (00:15→08:38)
[2017-02-04] MEDS: Levothyroxine 50 MCG Tab PO SCH (05:27)
[2017-02-04] MEDS: methylPREDNISolone Sodium Succinate 40 MG/1 ML SDV IVPUSH SCH (05:28)
[2017-02-04] MEDS: Sodium Chloride 0.9% 10 ML Syringe FLUSH PRN ×2 (05:31→06:15)
[2017-02-04] MEDS: cefTRIAXone 1 GM in Sodium Chloride 0.9% 50 ML IV SCH (06:13)
[2017-02-04] MEDS: Azithromycin 500 MG in Sodium Chloride 0.9% 250 ML IV SCH (06:43)
[2017-02-04 07:15] LABS: CHLORIDE,CL 103 mmol/L (101-111); SODIUM,NA 139 mmol/L (135-145)
[2017-02-04] MEDS: Budesonide 0.5 MG/2 ML Neb Susp NEB SCH (08:47)
[2017-02-04] MEDS: Multivitamins,Therapeutic Tab PO SCH (08:48)
[2017-02-04] MEDS: atorvaSTATin 20 MG Tab PO SCH (08:49)
[2017-02-04] MEDS: Sertraline 50 MG Tab PO SCH (08:49)
--- NOTE | 2017-02-04 10:57 | PCM.DCSUM1 ---
Discharge Summary - Hospital Course Free Text/Narrative:: The pt was admitted and treated for Acute COPD Exacerbation and Bronchitis. She was given Solumedrol 40 IV q8 hrs and Azithromycin as well as Ceftriaxone. She is doing well but her oxygen saturation is low at room air. she was on Duoneb and albuterol. she had her desaturaion stydy done while in hospital and her resting RA Oxygen saturaion was 88% and with exercising on RA oxygen saturation was 85%, and Exercising with 2L Oxygen, saturation was 92%. She will need home Oxygen, continuous 2L for 24 hrs . She will go home on Prednisone tapering and antibiotics Cefpodoxime 200 mg q12 hrs x 10 days. she will follow with PMD in a week with PMD HPI Initial Comments: This is a 76-year-old lady with a history of severe COPD, continued smoking, history of CVA on long-term anticoagulation and anxiety presented with increasing shortness of breath over 7-10 days. She is increasingly weak, limited exercise tolerance. Shortness of breath is worse with activity, not associated with fever has chronic cough unchanged. No sputum went to the clinic on 02/01 , was given antibiotics.Shortness of breath continued and she came to the emergency room and got admitted for COPD exacerbation and Bronchitis - Discharge Data Discharge Date: 02/04/17 Discharge Disposition: Home, Self-Care 01 Condition: Good - Patient Summary/Data Hospital Course: The pt was admitted and treated for Acute COPD Exacerbation and Bronchitis. She was given Solumedrol 40 IV q8 hrs and Azithromycin as well as Ceftriaxone. She is doing well but her oxygen saturation is low at room air. she was on Duoneb and albuterol. she had her desaturaion stydy done while in hospital and her resting RA Oxygen saturaion was 88% and with exercising on RA oxygen saturation was 85%, and Exercising with 2L Oxygen, saturation was 92%. She will need home Oxygen, continuous 2L for 24 hrs . She will go home on Prednisone tapering and antibiotics Cefpodoxime 200 mg q12 hrs x 1 0 days. she will follow with PMD in a week with PMD - Patient Instructions Diet: Regular Diet as Tolerated Activity: As Tolerated Other/Special Instructions: Pt will be going home on home oxygen 2L/24 hrs. Pt had her desaturation stydy in hospital and her resting oxygen saturation in R/A was 88%, with exercising on R/A oxygen saturaion was 85% and exercising with 2 L oxygen, the oxygen saturation was 92%. She will also go home with Prednisone tapering 40 mg X 3 days, 30 mg x 3 days, 20 mg x 3 days and 10 mg x 3 days and antibiotics Cefpodoxime 200 mg q12 hrs x 10 days. She was advised to quit smoking and not smoke with supplemntal oxygen. She will follow with PMD in one week and schedule follow up with Pulmonary clinic at [facility]. - Discharge Plan Prescriptions/Med Rec: Cefpodoxime Proxetil 200 mg PO Q12HR #20 tablet Albuterol/Ipratropium [DuoNeb 3.0-0.5 MG/3 ML] 3 ml NEB Q6HRRT PRN 30 Days PRN Reason: Shortness Of Breath Prednisone [IJD: Prednisone] See Taper PO DAILY #30 tab Home Medications: Home Meds Fluticasone/Salmeterol [Advair 100-50] 2 puff INH BID PRN 07/28/13 [History] Tiotropium [Spiriva Handihaler] 1 puff INH DAILY 07/28/13 [History] Warfarin [Coumadin] 7.5 mg PO DAILY 07/28/13 [History] Albuterol [Proventil HFA] 2 puff INH Q4H PRN 03/26/14 [History] Levothyroxine [Synthroid] 50 mcg PO ACBRK 03/26/14 [History] Sertraline [Zoloft] 25 mg PO DAILY 03/26/14 [History] Gluc HCl/Csa/[place] Hy/Hyalur Ac [Glucosamine Chondroitin] 2 tab PO DAILY [History] Ipratropium/Albuterol Sulfate [Duoneb 0.5 mg-3 mg/3 ml Soln] 1 ampule INH Q4HR PRN 05/01/14 [History] Multivitamin [Multivitamins] 1 tab PO DAILY 05/01/14 [History] Rolaids 2 tab.chew CHEW ASDIRECTED PRN 05/01/14 [History] atorvaSTATin Calcium [Atorvastatin Calcium] 20 mg PO DAILY 12/21/15 [History] Albuterol/Ipratropium [DuoNeb 3.0-0.5 MG/3 ML] 3 ml NEB Q6HRRT PRN 30 Days 02/04 [Rx] Cefpodoxime Proxetil 200 mg PO Q12HR #20 tablet 02/04/17 [Rx] Prednisone [IJD: Prednisone] See Taper PO DAILY #30 tab 02/04/17 [Rx] Forms: ED Department Discharge - Discharge Summary/Plan Comment DC Time >30 min.: Yes - General Info Date of Service: 02/04/17 Admission Dx/Problem (Free Text: Admission Diagnosis/Problem Admission Diagnosis/Problem Acute COPD Exacerbation , Exacerbation of Severe chronic obstructive pulmonary disease Subjective Update: feeling better. Less shortness of breath, no more cough, No hnausea or vomiting , No chest pain, No tom or chill . Functional Status: Reports: pain controlled, tolerating diet, ambulating, urinating - Review of Systems General: Reports: Appetite (good). Denies: Fever, Chills HEENT: Denies: post nasal drip, sore throat, visual changes Pulmonary: Reports: shortness of breath, cough, wheezing. Denies: sputum Cardiovascular: Reports: Dyspnea on Exertion. Denies: Chest Pain, Lightheadedness Gastrointestinal: Denies: Abdominal pain, Diarrhea, Difficulty swallowing, Vomiting Genitourinary: Denies: dysuria, burning, urgency, flank pain Musculoskeletal: Denies: neck pain, shoulder pain, leg pain, foot pain Skin: Denies: cyanosis, jaundice, bruising, pruritis, rash Neurological: Denies: Dizziness, Headache, Syncope, Tingling Psychiatric: Denies: depression, anxiety - Patient Data Vitals - Most Recent: Last Vital Signs Temp 36.9 C 02/04/17 08:57 Pulse 103 H 02/04/17 08:57 Resp 20 02/04/17 08:57 BP 125/62 02/04/17 08:57 Pulse Ox 97 02/04/17 08:57 Weight - Most Recent: 45.359 kg I&O - Last 24 hours: Intake & Output 02/03/17 02/04/17 02/04/17 22:59 06:59 14:59 Intake Total 760 690 Output Total 1700 Balance 760 -1010 Lab Results - Last 24 hrs: Laboratory Results - last 24 hr 02/04/17 02/04/17 02/04/17 Range/Units 06:30 06:30 06:30 WBC 16.1 H (5.0-10.0) 10^3/uL RBC 4.21 (4.2-5.4) 10^6/uL Hgb 12.7 (12.0-16.0) g/dL Hct 38.9 (37.0-47.0) % MCV 92.4 (80-100) fL MCH 30.2 (27.0-34.0) pg MCHC 32.6 L (33.0-35.0) g/dL Plt Count 234 (150-450) 10^3/uL Neut % (Auto) 92.1 H (42.2-75.2) % Lymph % (Auto) 4.1 L (20.5-50.1) % [place] % (Auto) 3.7 (2-8) % Eos % (Auto) 0.0 L (1.0-3.0) % Baso % (Auto) 0.1 (0.0-1.0) % PT 20.7 H (9.0-12.0) SEC INR 2.1 H (0.9-1.2) Sodium 139 (135-145) mmol/L Potassium 4.2 (3.6-5.0) mmol/L Chloride 103 (101-111) mmol/L Carbon Dioxide 28.0 (21.0-31.0) mmol/L Anion Gap 12.2 BUN 14 (7-18) mg/dL Creatinine 0.6 (0.6-1.3) mg/dL Est Cr Clr Drug Dosing 58.90 mL/min Estimated GFR (MDRD) > 60 Glucose 130 H (74-105) mg/dL Calcium 9.0 (8.4-10.2) mg/dl DARLENE Results - Last 24 hrs: Microbiology 02/03/17 10:30 Gram Stain - Final Sputum - Expectorated Med Orders - Current: Current Medications Acetaminophen (Tylenol) 650 mg PO Q4H PRN PRN Reason: Pain (Mild 1-3)/fever Albuterol (Proventil Neb Soln) 2.5 mg NEB Q4HRRT PRN PRN Reason: sob Albuterol/Ipratropium (Duoneb 3.0-0.5 Mg/3 Ml) 3 ml NEB Q6HRRT [facility] Last Admin: 02/04/17 08:38 Dose: 3 ml Atorvastatin Calcium (Lipitor) 20 mg PO DAILY [facility] Last Admin: 02/04/17 08:49 Dose: 20 mg Benzonatate (Tessalon Perles) 100 mg PO TID PRN PRN Reason: Cough Budesonide (Pulmicort) 0.5 mg NEB BIDRT [facility] Last Admin: 02/04/17 08:47 Dose: 0.5 mg Docusate Sodium (Colace) 100 mg PO BID PRN PRN Reason: Constipation Azithromycin 500 mg/ Sodium (Chloride) 250 mls @ 250 mls/hr IV Q24H [facility] Last Admin: 02/04/17 06:43 Dose: 250 mls/hr Ceftriaxone Sodium 1 gm/ (Sodium Chloride) 50 mls @ 100 mls/hr IV Q24H [facility] Last Admin: 02/04/17 06:13 Dose: 100 mls/hr Levothyroxine Sodium (Synthroid) 50 mcg PO ACBRK [facility] Last Admin: 02/04/17 05:27 Dose: 50 mcg Methylprednisolone Sodium Succinate (Solu-Medrol) 40 mg IVPUSH Q8H [facility] Last Admin: 02/04/17 05:28 Dose: 40 mg Multivitamins (Thera) 1 each PO DAILY [facility] Last Admin: 02/04/17 08:48 Dose: 1 each Ondansetron HCl (Zofran Odt) 4 mg PO Q4H PRN PRN Reason: nausea, able to take PO Sertraline HCl (Zoloft) 25 mg PO DAILY [facility] Last Admin: 02/04/17 08:49 Dose: 25 mg Sodium Chloride (Saline Flush) 10 ml FLUSH ASDIRECTED PRN PRN Reason: Keep Vein Open Last Admin: 02/04/17 06:15 Dose: 10 ml Sodium Chloride (Saline Flush) 10 ml FLUSH ASDIRECTED PRN PRN Reason: Keep Vein Open Warfarin Sodium (Pharmacy To Dose - Warfarin) 1 dose .XX ASDIRECTED [facility] Warfarin Sodium (Coumadin) 5 mg PO ONETIME ONE Stop: 02/04/17 14:01 Zolpidem Tartrate (Ambien) 5 mg PO BEDTIME PRN PRN Reason: Sleep Last Admin: 02/04/17 00:15 Dose: 5 mg Discontinued Medications Albuterol/Ipratropium (Duoneb 3.0-0.5 Mg/3 Ml) 3 ml NEB ONETIME ONE Stop: 02/02/17 16:40 Last Admin: 02/02/17 16:59 Dose: 3 ml Azithromycin (Zithromax) Confirm Administered Dose 500 mg .ROUTE .STK-MED ONE Stop: 02/03/17 06:20 Last Admin: 02/03/17 07:19 Dose: Not Given Diltiazem HCl (Diltiazem) 10 mg IVPUSH ONETIME ONE Stop: 02/02/17 16:53 Last Admin: 02/02/17 17:00 Dose: 10 mg Diltiazem HCl (Diltiazem) 10 mg IVPUSH ONETIME ONE Stop: 02/02/17 17:38 Last Admin: 02/02/17 17:48 Dose: 10 mg Hydromorphone HCl (Dilaudid) 1 mg IVPUSH ONETIME ONE Stop: 02/02/17 17:37 Last Admin: 02/03/17 00:59 Dose: Not Given Levofloxacin/Dextrose 500 mg/ (Premix) 100 mls @ 100 mls/hr IV ONETIME ONE Stop: 02/02/17 17:51 Last Admin: 02/02/17 17:04 Dose: 100 mls/hr Diltiazem HCl 100 mg/ Sodium (Chloride) 100 mls @ 5 mls/hr IV TITRATE FLORENCIO; 5 MG /HR PRN Reason: Protocol Sodium Chloride (Normal Saline) 1,000 mls @ 999 mls/hr IV .BOLUS ONE Stop: 02/02/17 18:41 Last Admin: 02/02/17 18:14 Dose: 999 mls/hr Methylprednisolone Sodium Succinate (Solu-Medrol) 125 mg IVPUSH ONETIME ONE Stop: 02/02/17 16:40 Last Admin: 02/02/17 16:59 Dose: 125 mg - Exam Quality Assessment: Reports: supplemental oxygen, DVT prophylaxis. Denies: urine catheter General: Reports: alert, oriented, cooperative, no acute distress HEENT: Reports: Pupils equal, Mucous membr. moist/pink Neck: Reports: supple, no JVD, no thyromegaly Lungs: Reports: Clear to auscultation, Normal respiratory effort, Crackles Cardiovascular: Reports: Regular Rate, Regular Rhythm, Murmurs (+ve) Abdomen: Reports: bowel sounds present, soft, no tenderness, no distension (Female) Exam: Deferred Back Exam: Reports: Normal Inspection, Full Range of Motion Extremities: Reports: no edema, no clubbing, no calf tenderness Skin: Reports: warm, dry, intact Neurological: Reports: no new focal deficit, normal gait, normal speech Psy/Mental Status: Reports: alert, normal mood *Q Meaningful Use (DIS) - VTE *Q VTE Criteria *Q: - Stroke *Q Stroke Criteria *Q: - AMI *Q AMI Criteria *Q:
[2017-02-04] MEDS ORDERED: Warfarin 5 MG Tab PO ONE ×2 (12:15→14:00)
[2017-02-04 12:57] VITALS: BP 124/63
== END 2017-02-04 12:35 | disposition home or self-care (01) | DRG 189 ==
LOC: DL.ED 16:28 → UNDOADMIN 18:02 → DL.MS 18:02
PROVIDERS: ADMIT Internal Medicine; ATTEND Internal Medicine
DX: J96.21 Acute and chronic respiratory failure with hypoxia (principal); I48.91 Unspecified atrial fibrillation; J44.1 Chronic obstructive pulmonary disease with (acute) exacerbation; J44.0 Chronic obstructive pulmonary disease with (acute) lower respiratory infection; J20.9 Acute bronchitis, unspecified; F17.210 Nicotine dependence, cigarettes, uncomplicated; Z86.73 Personal history of transient ischemic attack (TIA), and cerebral infarction without residual deficits; Z79.01 Long term (current) use of anticoagulants; F41.9 Anxiety disorder, unspecified; K21.9 Gastro-esophageal reflux disease without esophagitis; E03.9 Hypothyroidism, unspecified
CPT/HCPCS: 36415; 71010; 80053; 83605; 83880; 84484; 85025; 85610; 87040 ×2; 93005; 93010; 94640; 96361; 96365; 96375; 96376; 99285; J1956; J2930; J7030; J7050; 80048; 81001; 87070; 87205; 94060; 94667; 99284; A9270-GY; J0456; J0696; J2920; J3490

== ENCOUNTER 2017-02-06 19:09 | Emergency (ER) | payer MEDICARE, OTHER ==
--- NOTE | 2017-02-06 19:44 | EDM.PDOC ---
ED HPI GENERAL MEDICAL PROBLEM - General Chief Complaint: Respiratory Problem Stated Complaint: RESPIRATORY, [id number] Time Seen by Provider: 02/06/17 20:18 Source of Information: Reports: Patient History Limitations: Reports: No Limitations - History of Present Illness INITIAL COMMENTS - FREE TEXT/NARRATIVE: c/o feeling queazy and weak, stomach upset ongoing since discharge. Has not eaten well today. SOB unchanged from discharge, not doing nebs at home as had oxygen and didnt think she needed to use nebs, continues to smoke. 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 - Related Data Allergies Allergy/AdvReac Type Severity Reaction Status Date / Time No Known Allergies Allergy Verified 02/06/17 19:32 Home Meds: Home Meds Fluticasone/Salmeterol [Advair 100-50] 2 puff INH BID PRN 07/28/13 [History] Tiotropium [Spiriva Handihaler] 1 puff INH DAILY 07/28/13 [History] Warfarin [Coumadin] 7.5 mg PO DAILY 07/28/13 [History] Albuterol [Proventil HFA] 2 puff INH Q4H PRN 03/26/14 [History] Levothyroxine [Synthroid] 50 mcg PO ACBRK 03/26/14 [History] Sertraline [Zoloft] 25 mg PO DAILY 03/26/14 [History] Gluc HCl/Csa/[place] Hy/Hyalur Ac [Glucosamine Chondroitin] 2 tab PO DAILY [History] Ipratropium/Albuterol Sulfate [Duoneb 0.5 mg-3 mg/3 ml Soln] 1 ampule INH Q4HR PRN 05/01/14 [History] Multivitamin [Multivitamins] 1 tab PO DAILY 05/01/14 [History] Rolaids 2 tab.chew CHEW ASDIRECTED PRN 05/01/14 [History] atorvaSTATin Calcium [Atorvastatin Calcium] 20 mg PO DAILY 12/21/15 [History] Albuterol/Ipratropium [DuoNeb 3.0-0.5 MG/3 ML] 3 ml NEB Q6HRRT PRN 30 Days 02/04 [Rx] Cefpodoxime Proxetil 200 mg PO Q12HR #20 tablet 02/04/17 [Rx] Prednisone [IJD: Prednisone] See Taper PO DAILY #30 tab 02/04/17 [Rx] Past Medical History HEENT History: Reports: Cataract, Impaired Vision, Other (See Below) Other HEENT History: very early cataracts Cardiovascular History: Reports: High Cholesterol Respiratory History: Reports: Asthma, Bronchitis, Recurrent, COPD, SOB 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: Reports: G[employer] History: Reports: Other OB/BYN History: 3 NVD Musculoskeletal History: Reports: Arthritis, Fracture, Other (See Below) Other Musculoskeletal History: history of fractured wrist (right), fractured clavicle Neurological History: Reports: CVA Psychiatric History: Reports: Anxiety, Depression Endocrine/Metabolic History: Reports: Hypothyroidism Hematologic History: Reports: Anemia, Iron Deficiency - Past Surgical History HEENT Surgical History: Reports: Tonsillectomy GI Surgical History: Reports: Appendectomy Female Surgical History: Reports: D&C Social & Family History - Family History Family Medical History: Noncontributory - Tobacco Use Smoking Status *Q: Current Every Day Smoker Years of Tobacco use: 58 Packs/Tins Daily: 1 Used Tobacco, but Quit: No Second Hand Smoke Exposure: Yes - Caffeine Use Caffeine Use: Reports: Coffee Other Caffeine Use: 1-2 pots/day - Alcohol Use Days Per Week of Alcohol Use: 0 - Recreational Drug Use Recreational Drug Use: No - Living Situation & Occupation Living situation: Reports: with Family ED ROS GENERAL - Review of Systems Review Of Systems: See Below Constitutional: Reports: Decreased Appetite HEENT: Reports: No Symptoms Respiratory: Reports: Shortness of Breath, Wheezing, Cough Cardiovascular: Reports: No Symptoms GI/Abdominal: Reports: Decreased Appetite, Nausea. Denies: Abdominal Pain, Bloody Stool, Constipation, Diarrhea : Reports: No Symptoms Musculoskeletal: Reports: No Symptoms Skin: Reports: No Symptoms Neurological: Reports: No Symptoms ED EXAM, GENERAL - Physical Exam Exam: See Below Exam Limited By: No Limitations General Appearance: Alert, Thin Eye Exam: Bilateral Eye: EOMI Ear Exam: Bilateral Ear: TM normal Nose: Normal Inspection Throat/Mouth: Normal Inspection Head: Atraumatic, Normocephalic Neck: Normal Inspection Respiratory/Chest: Decreased Breath Sounds, Crackles, Wheezing (coarse mid to base bilateral) Cardiovascular: Normal Peripheral Pulses, Regular Rate, Rhythm GI/Abdominal: Normal Bowel Sounds, Soft, Non-Tender Extremities: Normal Inspection Neurological: Alert, Oriented Psychiatric: Normal Affect Course - Vital Signs Last Recorded V/S: Last Vital Signs Temp 97.1 F 02/06/17 20:34 Pulse 104 H 02/06/17 20:34 Resp 20 02/06/17 20:34 BP 132/69 02/06/17 20:34 Pulse Ox 93 L 02/06/17 20:34 - Orders/Labs/Meds Orders: Active Orders 24 hr Category Date Time Status EKG 12 Lead [EKG Documentation Completion] [RC] URGENT Care 02/06/17 19:41 Active RT Aerosol Therapy [RC] ASDIRECTED Care 02/06/17 20:14 Active Labs: Laboratory Tests 02/06/17 02/06/17 02/06/17 Range/Units 19:45 19:45 19:45 WBC 9.5 (5.0-10.0) 10^3/uL RBC 4.50 (4.2-5.4) 10^6/uL Hgb 13.4 (12.0-16.0) g/dL Hct 41.9 (37.0-47.0) % MCV 93.1 (80-100) fL MCH 29.8 (27.0-34.0) pg MCHC 32.0 L (33.0-35.0) g/dL Plt Count 250 (150-450) 10^3/uL Neut % (Auto) 67.3 (42.2-75.2) % Lymph % (Auto) 19.3 L (20.5-50.1) % [place] % (Auto) 11.6 H (2-8) % Eos % (Auto) 1.7 (1.0-3.0) % Baso % (Auto) 0.1 (0.0-1.0) % PT 27.8 H (9.0-12.0) SEC INR 2.8 H (0.9-1.2) Sodium 144 (135-145) mmol/L Potassium 3.2 L (3.6-5.0) mmol/L Chloride 103 (101-111) mmol/L Carbon Dioxide 30.0 (21.0-31.0) mmol/L Anion Gap 14.2 BUN 12 (7-18) mg/dL Creatinine 0.5 L (0.6-1.3) mg/dL Est Cr Clr Drug Dosing 78.07 mL/min Estimated GFR (MDRD) > 60 BUN/Creatinine Ratio 24.00 Glucose 102 (74-105) mg/dL Calcium 9.0 (8.4-10.2) mg/dl Total Bilirubin 0.3 (0.2-1.0) mg/dL AST 45 H (10-42) IU/L ALT 84 H (10-60) IU/L Alkaline Phosphatase 45 (42-121) IU/L Troponin I < 0.02 (0.00-0.02) ng/ml B-Natriuretic Peptide 83 (0-100) pg/ml Total Protein 6.5 L (6.7-8.2) g/dl Albumin 3.8 (3.2-5.5) g/dl Globulin 2.7 Albumin/Globulin Ratio 1.41 Meds: Medications Discontinued Medications Generic Name Dose Route Start Last Admin Trade Name Freq PRN Reason Stop Dose Admin Albuterol 2.5 mg 02/06/17 20:14 02/06/17 20:18 Proventil Neb Soln NEB 02/06/17 20:15 2.5 mg ONETIME ONE Administration Ondansetron HCl 4 mg 02/06/17 20:14 02/06/17 20:20 Zofran Odt PO 02/06/17 20:15 4 mg ONETIME ONE Administration Ondansetron HCl Confirm 02/06/17 21:16 02/06/17 21:30 Zofran Odt Administered 02/06/17 21:17 Not Given Dose 8 mg .ROUTE .STK-MED ONE - Radiology Interpretation Free Text/Narrative:: CXR:Hyper-expanded lung dueñas consistent with COPD Departure - Departure Time of Disposition: 21:25 Disposition: Home, Self-Care 01 Condition: good Clinical Impression: COPD (chronic obstructive pulmonary disease) Qualifiers: COPD type: COPD with acute exacerbation Qualified Code(s): J44.1 - Chronic obstructive pulmonary disease with (acute) exacerbation - Discharge Information Instructions: Shortness of Breath, [id number] Forms: ED Department Discharge - My Orders Last 24 Hours: My Active Orders 02/06/17 19:41 EKG 12 Lead [EKG Documentation Completion] [RC] URGENT 02/06/17 20:14 RT Aerosol Therapy [RC] ASDIRECTED - Assessment/Plan Last 24 Hours: My Active Orders 02/06/17 19:41 EKG 12 Lead [EKG Documentation Completion] [RC] URGENT 02/06/17 20:14 RT Aerosol Therapy [RC] ASDIRECTED
[2017-02-06 20:10] LABS: CHLORIDE,CL 103 mmol/L (101-111); SODIUM,NA 144 mmol/L (135-145)
[2017-02-06] MEDS ORDERED: Ondansetron 4 MG Tab.DIS PO ONE ×2 (20:14→21:16)
[2017-02-06] MEDS ORDERED: Albuterol 0.083% 2.5 MG/3 ML Neb Soln NEB ONE (20:14)
[2017-02-06 20:35] VITALS: BP 132/69
[2017-02-06] MEDS ORDERED: Ondansetron 4 MG Tab.DIS ONE (21:16)
--- NOTE | 2017-02-08 13:56 | EKG ---
02/06/2017- CHRISTIAN HANSEN - EKG shows sinus tachycardia at the rate of 109. This is from 7:47 p.m. [facility] /[id number]
== END 2017-02-06 21:23 | disposition home or self-care (01) ==
LOC: DL.ED 19:09
DX: J44.1 Chronic obstructive pulmonary disease with (acute) exacerbation (principal); H54.7 Unspecified visual loss; E78.00 Pure hypercholesterolemia, unspecified; J45.909 Unspecified asthma, uncomplicated; K21.9 Gastro-esophageal reflux disease without esophagitis; F41.9 Anxiety disorder, unspecified; F32.9 Major depressive disorder, single episode, unspecified; E03.9 Hypothyroidism, unspecified; F17.210 Nicotine dependence, cigarettes, uncomplicated; Z90.49 Acquired absence of other specified parts of digestive tract; Z79.01 Long term (current) use of anticoagulants; Z79.899 Other long term (current) drug therapy
CPT/HCPCS: 36415; 71010; 80053; 83880; 84484; 85025; 85610; 93005; 93010; 94640; 99285; A9270; J7620; 99283

== ENCOUNTER 2017-09-20 13:36 | Emergency (ER) | payer MEDICARE, OTHER ==
[2017-09-20] MEDS ORDERED: Albuterol/Ipratropium 3.0-0.5 MG/3 ML Neb Soln NEB ONE (13:47)
[2017-09-20] MEDS ORDERED: methylPREDNISolone Sodium Succinate 125 MG/2 ML SDV IVPUSH ONE (14:19)
[2017-09-20] MEDS ORDERED: Ondansetron 4 MG/2 ML SDV IV ONE (14:19)
--- NOTE | 2017-09-20 14:28 | EDM.PDOC ---
ED HPI GENERAL MEDICAL PROBLEM - General Chief Complaint: Respiratory Problem Stated Complaint: COPD Time Seen by Provider: 09/20/17 14:15 Source of Information: Reports: Patient History Limitations: Reports: No Limitations - History of Present Illness INITIAL COMMENTS - FREE TEXT/NARRATIVE: This 77 yo female patient reports to the ED with her due to increased shortness of breath. The patient reports her shortness of breath started to get much worse today. The patient reports she continues to smoke and has not plan on quitting. The patient's spouse reports that the patient may or may not be taking her medications as prescribed. Onset: Today Duration: Constant, Getting Worse Location: Reports: Chest Quality: Reports: Other Severity: Moderate Improves with: Reports: None Worsens with: Reports: None Associated Symptoms: Reports: Cough, Shortness of Breath, Weakness - Related Data Allergies Allergy/AdvReac Type Severity Reaction Status Date / Time No Known Allergies Allergy Verified 02/06/17 19:32 Home Meds: Home Meds Fluticasone/Salmeterol [Advair 100-50] 2 puff INH BID PRN 07/28/13 [History] Tiotropium [Spiriva Handihaler] 1 puff INH DAILY 07/28/13 [History] Warfarin [Coumadin] 7.5 mg PO DAILY 07/28/13 [History] Albuterol [Proventil HFA] 2 puff INH Q4H PRN 03/26/14 [History] Levothyroxine [Synthroid] 50 mcg PO ACBRK 03/26/14 [History] Sertraline [Zoloft] 25 mg PO DAILY 03/26/14 [History] Gluc HCl/Csa/[place] Hy/Hyalur Ac [Glucosamine Chondroitin] 2 tab PO DAILY [History] Ipratropium/Albuterol Sulfate [Duoneb 0.5 mg-3 mg/3 ml Soln] 1 ampule INH Q4HR PRN 05/01/14 [History] Multivitamin [Multivitamins] 1 tab PO DAILY 05/01/14 [History] Rolaids 2 tab.chew CHEW ASDIRECTED PRN 05/01/14 [History] atorvaSTATin Calcium [Atorvastatin Calcium] 20 mg PO DAILY 12/21/15 [History] Albuterol/Ipratropium [DuoNeb 3.0-0.5 MG/3 ML] 3 ml NEB Q6HRRT PRN 30 Days neb 02/04/17 [Rx] Cefpodoxime Proxetil 200 mg PO Q12HR #20 tablet 02/04/17 [Rx] Prednisone [IJD: Prednisone] See Taper PO DAILY #30 tab 02/04/17 [Rx] Past Medical History HEENT History: Reports: Cataract, Impaired Vision, Other (See Below) Other HEENT History: very early cataracts Cardiovascular History: Reports: High Cholesterol Respiratory History: Reports: Asthma, Bronchitis, Recurrent, COPD, SOB 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: Reports: GERD [employer] History: Reports: Other OB/BYN History: 3 NVD Musculoskeletal History: Reports: Arthritis, Fracture, Other (See Below) Other Musculoskeletal History: history of fractured wrist (right), fractured clavicle Neurological History: Reports: CVA Psychiatric History: Reports: Anxiety, Depression Endocrine/Metabolic History: Reports: Hypothyroidism Hematologic History: Reports: Anemia, Iron Deficiency Immunologic History: Reports: None Oncologic (Cancer) History: Reports: None - Past Surgical History HEENT Surgical History: Reports: Tonsillectomy GI Surgical History: Reports: Appendectomy Female Surgical History: Reports: D&C Social & Family History - Family History Family Medical History: Noncontributory - Tobacco Use Smoking Status *Q: Current Every Day Smoker Years of Tobacco use: 58 Packs/Tins Daily: 1 Used Tobacco, but Quit: No Second Hand Smoke Exposure: Yes - Caffeine Use Caffeine Use: Reports: Coffee Other Caffeine Use: 1-2 pots/day - Alcohol Use Days Per Week of Alcohol Use: 0 - Recreational Drug Use Recreational Drug Use: No - Living Situation & Occupation Living situation: Reports: with Family ED ROS GENERAL - Review of Systems Review Of Systems: ROS reveals no pertinent complaints other than HPI. ED EXAM, GENERAL - Physical Exam Exam: See Below Exam Limited By: No Limitations General Appearance: Alert, WD/WN, Severe Distress, Thin Eye Exam: Bilateral Eye: EOMI, Normal Inspection, PERRL Ears: Normal External Exam, Normal Canal, Hearing Grossly Normal, Normal TMs Nose: Normal Inspection, Normal Mucosa, No Blood Throat/Mouth: Normal Inspection, Normal Lips, Normal Teeth, Normal Gums, Normal Oropharynx, Normal Voice, No Airway Compromise Head: Atraumatic, Normocephalic Neck: Normal Inspection, Supple, Non-Tender, Full Range of Motion Respiratory/Chest: Decreased Breath Sounds, Crackles Cardiovascular: Normal Peripheral Pulses, Regular Rate, Rhythm, No Edema, No Gallop, No JVD, No Murmur, No Rub GI/Abdominal: Normal Bowel Sounds, Soft, Non-Tender, No Organomegaly, No Distention, No Abnormal Bruit, No Mass (Female) Exam: Deferred Rectal (Female) Exam: Deferred Back Exam: Normal Inspection Extremities: Normal Inspection, Normal Range of Motion, Non-Tender, Normal Capillary Refill, No Pedal Edema Neurological: Alert Psychiatric: Anxious Skin Exam: Warm, Dry, Intact, Normal Color, No Rash Lymphatic: No Adenopathy Course - Vital Signs Last Recorded V/S: Last Vital Signs Temp 37.9 C 09/20/17 14:09 Pulse 115 H 09/20/17 15:34 Resp 28 H 09/20/17 15:34 BP 144/57 H 09/20/17 15:34 Pulse Ox 88 L 09/20/17 15:34 - Orders/Labs/Meds Orders: Active Orders 24 hr Category Date Time Status RT Aerosol Therapy [RC] ASDIRECTED Care 09/20/17 13:47 Active CULTURE BLOOD [BC] Stat Lab 09/20/17 13:55 Received CULTURE BLOOD [BC] Stat Lab 09/20/17 14:05 Received Blood Culture x2 Reflex Set [OM.PC] Stat Oth 09/20/17 13:47 Ordered Labs: Laboratory Tests 09/20/17 09/20/17 09/20/17 Range/Units 14:05 14:05 14:05 WBC 12.9 H (5.0-10.0) 10^3/uL RBC 4.04 L (4.2-5.4) 10^6/uL Hgb 11.7 L D (12.0-16.0) g/dL Hct 38.0 (37.0-47.0) % MCV 94.1 (80-100) fL MCH 29.0 (27.0-34.0) pg MCHC 30.8 L (33.0-35.0) g/dL Plt Count 292 (150-450) 10^3/uL Neut % (Auto) 88.2 H (42.2-75.2) % Lymph % (Auto) 6.4 L (20.5-50.1) % [place] % (Auto) 4.7 (2-8) % Eos % (Auto) 0.5 L (1.0-3.0) % Baso % (Auto) 0.2 (0.0-1.0) % Sodium 137 (135-145) mmol/L Potassium 3.2 L (3.6-5.0) mmol/L Chloride 97 L (101-111) mmol/L Carbon Dioxide 32.0 H (21.0-31.0) mmol/L Anion Gap 11.2 BUN 9 (7-18) mg/dL Creatinine 0.6 (0.6-1.3) mg/dL Est Cr Clr Drug Dosing 64.07 mL/min Estimated GFR (MDRD) > 60 BUN/Creatinine Ratio 15.00 Glucose 134 H (74-105) mg/dL Lactic Acid 1.5 (0.5-2.2) mmol/L Calcium 8.5 (8.4-10.2) mg/dl Total Bilirubin 0.6 (0.2-1.0) mg/dL AST 24 (10-42) IU/L ALT 18 (10-60) IU/L Alkaline Phosphatase 59 (42-121) IU/L B-Natriuretic Peptide 79 (0-100) pg/ml Total Protein 7.0 (6.7-8.2) g/dl Albumin 3.5 (3.2-5.5) g/dl Globulin 3.5 Albumin/Globulin Ratio 1.00 Meds: Medications Discontinued Medications Generic Name Dose Route Start Last Admin Trade Name Freq PRN Reason Stop Dose Admin Albuterol/Ipratropium 3 ml 09/20/17 13:47 09/20/17 13:55 Duoneb 3.0-0.5 Mg/3 Ml NEB 09/20/17 13:48 3 ml ONETIME ONE Administration Levofloxacin 500 mg 09/20/17 15:24 09/20/17 15:30 Levaquin PO 09/20/17 15:25 500 mg ONETIME ONE Administration Methylprednisolone Sodium Succinate 125 mg 09/20/17 14:19 09/20/17 14:35 Solu-Medrol IVPUSH 09/20/17 14:20 125 mg ONETIME ONE Administration Ondansetron HCl 4 mg 09/20/17 14:19 09/20/17 14:33 Zofran IV 09/20/17 14:20 4 mg ONETIME ONE Administration Departure - Departure Time of Disposition: 15:39 Disposition: Home, Self-Care 01 Condition: Fair Clinical Impression: Community acquired pneumonia, Acute exacerbation of chronic obstructive pulmonary disease - Discharge Information Instructions: Chronic Obstructive Pulmonary Disease Exacerbation, [id number] , Community-Acquired Pneumonia, Adult, [id number] Forms: ED Department Discharge Care Plan Goals: The patient was advised of the examination, lab and x-ray results during the visit. The patient was given an IV dose of Zofran for nausea, an IV dose of SoluMedrol and an oral dose of Levaquin while in the ED. The patient was discharged with a script for Levaquin (500 mg) to take 1 by mouth daily for 6 days and a Medrol Dose Pack to take as directed. The patient was advised to do a nebulizer treatment 4 times per day and continue her regular medications as prescribed. If the patient has any additional symptoms or concerns, the patient should follow-up with her primary care facility or return to the emergency department. - My Orders Last 24 Hours: My Active Orders 09/20/17 13:47 RT Aerosol Therapy [RC] ASDIRECTED Blood Culture x2 Reflex Set [OM.PC] Stat 09/20/17 13:55 CULTURE BLOOD [BC] Stat 09/20/17 14:05 CULTURE BLOOD [BC] Stat - Assessment/Plan Last 24 Hours: My Active Orders 09/20/17 13:47 RT Aerosol Therapy [RC] ASDIRECTED Blood Culture x2 Reflex Set [OM.PC] Stat 09/20/17 13:55 CULTURE BLOOD [BC] Stat 09/20/17 14:05 CULTURE BLOOD [BC] Stat
[2017-09-20 14:41] LABS: ANION GAP 11.2; CHLORIDE,CL 97 mmol/L (101-111); SODIUM,NA 137 mmol/L (135-145)
--- NOTE | 2017-09-20 15:07 | CR ---
Clinical history: 77-year-old female shortness of breath. Interpretation: Markedly abnormal. Asymmetric dense new pneumonic like consolidation lateral segment of the right middle lobe and some u nderlying right lower lobe atelectasis/infiltrate since 06 February 2017 comparison film. Normal cardiac silhouette without cephalization of vascular flow signs of alveolar edema or dependent effusion on the left. Left lung is clear. CONCLUSION: Acute right middle lobe pneumonia.
[2017-09-20] MEDS ORDERED: Levofloxacin 500 MG Tab PO ONE (15:24)
[2017-09-20 15:35] VITALS: BP 144/57
== END 2017-09-20 15:55 | disposition home or self-care (01) ==
LOC: DL.ED 13:36
DX: J18.9 Pneumonia, unspecified organism (principal); J44.1 Chronic obstructive pulmonary disease with (acute) exacerbation; E78.00 Pure hypercholesterolemia, unspecified; F17.210 Nicotine dependence, cigarettes, uncomplicated; Z79.01 Long term (current) use of anticoagulants; Z79.899 Other long term (current) drug therapy; E03.9 Hypothyroidism, unspecified
CPT/HCPCS: 36415; 71046; 80053; 83605; 83880; 85025; 87040; 87804; 96374; 96375; 99285; A9270; J2405; J2930; 99284

== ENCOUNTER 2017-12-26 20:21 | Inpatient (IN) | payer MEDICARE, OTHER ==
--- NOTE | 2017-12-26 20:57 | EDM.PDOC ---
ED HPI GENERAL MEDICAL PROBLEM - General Chief Complaint: Respiratory Problem Stated Complaint: RESPITORY DISTRESS Time Seen by Provider: 12/26/17 20:45 Source of Information: Reports: Patient History Limitations: Reports: Other (shortness of breath) - History of Present Illness INITIAL COMMENTS - FREE TEXT/NARRATIVE: This 77 yo female patient was brought to the ED by [facility] due to increased shortness of breath and inability to move due to breathing difficulties. The patient has a history of COPD and continues to smoke 1 pack of cigarettes per day. The patient reports her symptoms started to get worse today. The patient's reports that she "never" uses her nebulizer machine. 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) - Related Data Allergies Allergy/AdvReac Type Severity Reaction Status Date / Time No Known Allergies Allergy Verified 12/26/17 20:53 Home Meds: Home Meds Fluticasone/Salmeterol [Advair 100-50] 2 puff INH BID PRN 07/28/13 [History] Tiotropium [Spiriva Handihaler] 1 puff INH DAILY 07/28/13 [History] Warfarin [Coumadin] 7.5 mg PO DAILY 07/28/13 [History] Albuterol [Proventil HFA] 2 puff INH Q4H PRN 03/26/14 [History] Levothyroxine [Synthroid] 50 mcg PO ACBRK 03/26/14 [History] Sertraline [Zoloft] 25 mg PO DAILY 03/26/14 [History] Gluc HCl/Csa/[place] Hy/Hyalur Ac [Glucosamine Chondroitin] 2 tab PO DAILY [History] Ipratropium/Albuterol Sulfate [Duoneb 0.5 mg-3 mg/3 ml Soln] 1 ampule INH Q4HR PRN 05/01/14 [History] Multivitamin [Multivitamins] 1 tab PO DAILY 05/01/14 [History] Rolaids 2 tab.chew CHEW ASDIRECTED PRN 05/01/14 [History] atorvaSTATin Calcium [Atorvastatin Calcium] 20 mg PO DAILY 12/21/15 [History] Albuterol/Ipratropium [DuoNeb 3.0-0.5 MG/3 ML] 3 ml NEB Q6HRRT PRN 30 Days neb 02/04/17 [Rx] Cefpodoxime Proxetil 200 mg PO Q12HR #20 tablet 02/04/17 [Rx] Prednisone [IJD: Prednisone] See Taper PO DAILY #30 tab 02/04/17 [Rx] Past Medical History HEENT History: Reports: Cataract, Impaired Vision, Other (See Below) Other HEENT History: very early cataracts Cardiovascular History: Reports: High Cholesterol Respiratory History: Reports: Asthma, Bronchitis, Recurrent, COPD, SOB 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: Reports: GERD 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 OB/BYN History: 3 NVD Musculoskeletal History: Reports: Arthritis, Fracture, Other (See Below) Other Musculoskeletal History: history of fractured wrist (right), fractured clavicle Neurological History: Reports: CVA Psychiatric History: Reports: Anxiety, Depression Endocrine/Metabolic History: Reports: Hypothyroidism Hematologic History: Reports: Anemia, Iron Deficiency Immunologic History: Reports: None Oncologic (Cancer) History: Reports: None - Past Surgical History HEENT Surgical History: Reports: Tonsillectomy GI Surgical History: Reports: Appendectomy Female Surgical History: Reports: D&C Social & Family History - Family History Family Medical History: Noncontributory - Tobacco Use Smoking Status *Q: Current Every Day Smoker Years of Tobacco use: 64 Packs/Tins Daily: 20 Used Tobacco, but Quit: No Second Hand Smoke Exposure: Yes - Caffeine Use Caffeine Use: Reports: Coffee Other Caffeine Use: 1-2 pots/day - Alcohol Use Days Per Week of Alcohol Use: 0 - Recreational Drug Use Recreational Drug Use: No - Living Situation & Occupation Living situation: Reports: with Family ED ROS GENERAL - Review of Systems Review Of Systems: ROS reveals no pertinent complaints other than HPI. ED EXAM, GENERAL - Physical Exam Exam: See Below Exam Limited By: No Limitations General Appearance: Alert, WD/WN, Moderate Distress Eye Exam: Bilateral Eye: EOMI, Normal Inspection, PERRL Ears: Normal External Exam, Normal Canal, Hearing Grossly Normal, Normal TMs, Other (hearing aid in left ear (removed for exam and replaced by patient)) Nose: Normal Inspection, Normal Mucosa, No Blood Throat/Mouth: Normal Inspection, Normal Lips, Normal Teeth, Normal Gums, Normal Oropharynx, Normal Voice, No Airway Compromise Head: Atraumatic, Normocephalic Neck: Normal Inspection, Supple, Non-Tender, Full Range of Motion Respiratory/Chest: Decreased Breath Sounds, Rhonchi (Right lower lobe) Cardiovascular: Normal Peripheral Pulses, Regular Rate, Rhythm, No Edema, No Gallop, No JVD, No Murmur, No Rub GI/Abdominal: Normal Bowel Sounds, Soft, Non-Tender, No Organomegaly, No Distention, No Abnormal Bruit, No Mass (Female) Exam: Deferred Rectal (Female) Exam: Deferred Back Exam: Normal Inspection, Full Range of Motion, NT Extremities: Normal Inspection, Normal Range of Motion, Non-Tender, Normal Capillary Refill, No Pedal Edema Neurological: Alert, Oriented, CN II-XII Intact, Normal Cognition, Normal Gait, Normal Reflexes, No Motor/Sensory Deficits Psychiatric: Normal Affect, Normal Mood Skin Exam: Warm, Dry, Intact, Normal Color, No Rash Lymphatic: No Adenopathy Course - Vital Signs Last Recorded V/S: Last Vital Signs Temp 37.2 C 12/26/17 20:21 Pulse 119 H 12/26/17 20:21 Resp 26 H 12/26/17 20:21 BP 151/99 H 12/26/17 20:21 Pulse Ox 94 L 12/26/17 20:49 - Orders/Labs/Meds Orders: Active Orders 24 hr Category Date Time Status Chest 2V [CR] Urgent Exams 12/26/17 20:30 Ordered CULTURE BLOOD [BC] Stat Lab 12/26/17 20:32 Ordered CULTURE BLOOD [BC] Stat Lab 12/26/17 20:32 Ordered UA W/MICROSCOPIC [URIN] Stat Lab 12/26/17 20:30 Ordered Azithromycin [Zithromax] 500 mg Med 12/26/17 21:43 Ordered Sodium Chloride 0.9% [Normal Saline] 250 ml IV ONETIME Blood Culture x2 Reflex Set [OM.PC] Stat Oth 12/26/17 20:32 Ordered Medication Orders Azithromycin 500 mg/ Sodium (Chloride) 250 mls @ 250 mls/hr IV ONETIME ONE Stop: 12/26/17 22:42 Labs: Laboratory Tests 12/26/17 12/26/17 12/26/17 Range/Units 20:32 20:32 20:32 WBC 13.5 H (5.0-10.0) 10^3/uL RBC 5.06 (4.2-5.4) 10^6/uL Hgb 14.9 D (12.0-16.0) g/dL Hct 46.3 (37.0-47.0) % MCV 91.5 (80-100) fL MCH 29.4 (27.0-34.0) pg MCHC 32.2 L (33.0-35.0) g/dL Plt Count 192 D (150-450) 10^3/uL Neut % (Auto) 89.3 H (42.2-75.2) % Lymph % (Auto) 5.8 L (20.5-50.1) % [place] % (Auto) 4.3 (2-8) % Eos % (Auto) 0.4 L (1.0-3.0) % Baso % (Auto) 0.2 (0.0-1.0) % Sodium 137 (135-145) mmol/L Potassium 4.2 (3.6-5.0) mmol/L Chloride 97 L (101-111) mmol/L Carbon Dioxide 30.0 (21.0-31.0) mmol/L Anion Gap 14.2 BUN 8 (7-18) mg/dL Creatinine 0.7 (0.6-1.3) mg/dL Est Cr Clr Drug Dosing 54.92 mL/min Estimated GFR (MDRD) > 60 BUN/Creatinine Ratio 11.42 Glucose 136 H (74-105) mg/dL Lactic Acid (0.5-2.2) mmol/L Calcium 9.4 (8.4-10.2) mg/dl Total Bilirubin 0.7 (0.2-1.0) mg/dL AST 23 (10-42) IU/L ALT 14 (10-60) IU/L Alkaline Phosphatase 64 (42-121) IU/L B-Natriuretic Peptide 58 (0-100) pg/ml Total Protein 7.7 (6.7-8.2) g/dl Albumin 4.3 (3.2-5.5) g/dl Globulin 3.4 Albumin/Globulin Ratio 1.26 12/26/17 Range/Units 21:00 WBC (5.0-10.0) 10^3/uL RBC (4.2-5.4) 10^6/uL Hgb (12.0-16.0) g/dL Hct (37.0-47.0) % MCV (80-100) fL MCH (27.0-34.0) pg MCHC (33.0-35.0) g/dL Plt Count (150-450) 10^3/uL Neut % (Auto) (42.2-75.2) % Lymph % (Auto) (20.5-50.1) % [place] % (Auto) (2-8) % Eos % (Auto) (1.0-3.0) % Baso % (Auto) (0.0-1.0) % Sodium (135-145) mmol/L Potassium (3.6-5.0) mmol/L Chloride (101-111) mmol/L Carbon Dioxide (21.0-31.0) mmol/L Anion Gap BUN (7-18) mg/dL Creatinine (0.6-1.3) mg/dL Est Cr Clr Drug Dosing mL/min Estimated GFR (MDRD) BUN/Creatinine Ratio Glucose (74-105) mg/dL Lactic Acid 1.7 (0.5-2.2) mmol/L Calcium (8.4-10.2) mg/dl Total Bilirubin (0.2-1.0) mg/dL AST (10-42) IU/L ALT (10-60) IU/L Alkaline Phosphatase (42-121) IU/L B-Natriuretic Peptide (0-100) pg/ml Total Protein (6.7-8.2) g/dl Albumin (3.2-5.5) g/dl Globulin Albumin/Globulin Ratio Meds: Medications Generic Name Dose Route Start Last Admin Trade Name Freq PRN Reason Stop Dose Admin Azithromycin 500 mg/ Sodium 250 mls @ 250 mls/hr 12/26/17 21:43 Chloride IV 12/26/17 22:42 ONETIME ONE Discontinued Medications Generic Name Dose Route Start Last Admin Trade Name Freq PRN Reason Stop Dose Admin Ceftriaxone Sodium 1 gm 12/26/17 21:43 Rocephin IVPUSH 12/26/17 21:44 ONETIME ONE Departure - Departure Time of Disposition: 21:48 Disposition: Admitted As Inpatient 68 Condition: Fair Clinical Impression: Pneumonia Qualifiers: Pneumonia type: due to unspecified organism Laterality: right Lung location: lower lobe of lung Qualified Code(s): J18.1 - Lobar pneumonia, unspecified organism COPD (chronic obstructive pulmonary disease) Qualifiers: COPD type: COPD with acute exacerbation Qualified Code(s): J44.1 - Chronic obstructive pulmonary disease with (acute) exacerbation - Discharge Information Care Plan Goals: Discussed the history, examination, lab and x-ray results with Dr. Ennis. Dr. Ennis accepted the patient for continued evaluation and management as an inpatient at [facility]. - My Orders Last 24 Hours: My Active Orders 12/26/17 20:30 Chest 2V [CR] Urgent UA W/MICROSCOPIC [URIN] Stat 12/26/17 20:32 CULTURE BLOOD [BC] Stat CULTURE BLOOD [BC] Stat Blood Culture x2 Reflex Set [OM.PC] Stat 12/26/17 21:43 Azithromycin [Zithromax] 500 mg Sodium Chloride 0.9% [Normal Saline] 250 ml IV ONETIME - Assessment/Plan Last 24 Hours: My Active Orders 12/26/17 20:30 Chest 2V [CR] Urgent UA W/MICROSCOPIC [URIN] Stat 12/26/17 20:32 CULTURE BLOOD [BC] Stat CULTURE BLOOD [BC] Stat Blood Culture x2 Reflex Set [OM.PC] Stat 12/26/17 21:43 Azithromycin [Zithromax] 500 mg Sodium Chloride 0.9% [Normal Saline] 250 ml IV ONETIME
[2017-12-26 21:04] LABS: CHLORIDE,CL 97 mmol/L (101-111); SODIUM,NA 137 mmol/L (135-145)
[2017-12-26] MEDS ORDERED: Azithromycin 500 MG in Sodium Chloride 0.9% 250 ML IV ONE (21:43)
[2017-12-26] MEDS ORDERED: cefTRIAXone 1 GM Vial IVPUSH ONE (21:43)
[2017-12-26] MEDS ORDERED: Acetaminophen 325 MG Tab PO PRN (23:03)
[2017-12-26] MEDS ORDERED: Albuterol 6.7 GM Inhaler INH PRN (23:08)
--- NOTE | 2017-12-26 23:20 | PCM.HP ---
H&P History of Present Illness - General Date of Service: 12/26/17 Admit Problem/Dx: Admission Diagnosis/Problem Admission Diagnosis/Problem Pneumonia Source of Information: Patient History Limitations: Reports: No Limitations - History of Present Illness Initial Comments - Free Text/Narative: Patient is 77 y/o female with PMH of continuous tobacco abuse, Asthma/COPD, medical non-compliance, GERD, HLD, Hypothyroidism. She presented to the ED with increasing SOB. SOB is worse with exertion, associated with wheezing, cough. Cough is productive of whitish sputum. No hemoptysis. She denies fever, chills, chest pain. Denies ill contact or recent travel. As per patient does not use her inhalers as prescribed but continue to smoke 1 pack per day. In the ER she was hypoxic on room air and was put on 4L oxygen via [place]. Saturation improved to 92%. CXR done in the ER was suggestive of pneumonia. She was given IV ceftriaxone and azithromycin. Onset of Symptoms: Reports: Gradual Duration of Symptoms: Reports: Day(s):, Getting Worse Location: Reports: Other Quality: Reports: Other Improves with: Reports: Rest Worsens with: Reports: Movement Context: Reports: Exertion Associated Symptoms: Reports: No Other Symptoms, Shortness of Breath - Related Data Allergies/Adverse Reactions: Allergies Allergy/AdvReac Type Severity Reaction Status Date / Time No Known Allergies Allergy Verified 12/26/17 20:53 Home Medications: Home Meds Fluticasone/Salmeterol [Advair 100-50] 2 puff INH BID PRN 07/28/13 [History] Tiotropium [Spiriva Handihaler] 1 puff INH DAILY 07/28/13 [History] Warfarin [Coumadin] 7.5 mg PO DAILY 07/28/13 [History] Albuterol [Proventil HFA] 2 puff INH Q4H PRN 03/26/14 [History] Levothyroxine [Synthroid] 50 mcg PO ACBRK 03/26/14 [History] Sertraline [Zoloft] 25 mg PO DAILY 03/26/14 [History] Gluc HCl/Csa/[place] Hy/Hyalur Ac [Glucosamine Chondroitin] 2 tab PO DAILY [History] Ipratropium/Albuterol Sulfate [Duoneb 0.5 mg-3 mg/3 ml Soln] 1 ampule INH Q4HR PRN 05/01/14 [History] Multivitamin [Multivitamins] 1 tab PO DAILY 05/01/14 [History] Rolaids 2 tab.chew CHEW ASDIRECTED PRN 05/01/14 [History] atorvaSTATin Calcium [Atorvastatin Calcium] 20 mg PO DAILY 12/21/15 [History] Albuterol/Ipratropium [DuoNeb 3.0-0.5 MG/3 ML] 3 ml NEB Q6HRRT PRN 30 Days neb 02/04/17 [Rx] Cefpodoxime Proxetil 200 mg PO Q12HR #20 tablet 02/04/17 [Rx] Prednisone [IJD: Prednisone] See Taper PO DAILY #30 tab 02/04/17 [Rx] Past Medical History HEENT History: Reports: Cataract, Hard of Hearing, Impaired Vision, Other (See Below) Other HEENT History: very early cataracts Cardiovascular History: Reports: High Cholesterol Respiratory History: Reports: Asthma, Bronchitis, Recurrent, COPD, SOB 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: Reports: GERD 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 OB/BYN History: 3 NVD Musculoskeletal History: Reports: Arthritis, Fracture, Other (See Below) Other Musculoskeletal History: history of fractured wrist (right), fractured clavicle Neurological History: Reports: CVA Psychiatric History: Reports: Anxiety, Depression Endocrine/Metabolic History: Reports: Hypothyroidism Hematologic History: Reports: Anemia, Iron Deficiency Immunologic History: Reports: None Oncologic (Cancer) History: Reports: None - Past Surgical History HEENT Surgical History: Reports: Tonsillectomy GI Surgical History: Reports: Appendectomy Female Surgical History: Reports: D&C Social & Family History - Family History Family Medical History: Noncontributory - Tobacco Use Smoking Status *Q: Current Every Day Smoker Years of Tobacco use: 64 Packs/Tins Daily: 0.5 Used Tobacco, but Quit: No Second Hand Smoke Exposure: No - Caffeine Use Caffeine Use: Reports: Coffee Other Caffeine Use: 1-2 pots/day - Alcohol Use Days Per Week of Alcohol Use: 0 - Recreational Drug Use Recreational Drug Use: No - Living Situation & Occupation Living situation: Reports: with Family H&P Review of Systems - Review of Systems: Review Of Systems: See Below General: Reports: Fatigue HEENT: Reports: No Symptoms Pulmonary: Reports: Shortness of Breath, Wheezing, Cough, Sputum Cardiovascular: Reports: Dyspnea on Exertion Gastrointestinal: Reports: No Symptoms Genitourinary: Reports: No Symptoms Musculoskeletal: Reports: No Symptoms Skin: Reports: No Symptoms Psychiatric: Reports: No Symptoms Neurological: Reports: No Symptoms Hematologic/Lymphatic: Reports: No Symptoms Immunologic: Reports: No Symptoms Exam - Exam Exam: See Below - Vital Signs Vital Signs: Last Vital Signs Temp 101.8 F H 12/26/17 23:15 Pulse 146 H 12/26/17 23:15 Resp 22 H 12/26/17 23:15 BP 146/76 H 12/26/17 23:15 Pulse Ox 88 L 12/26/17 23:15 Weight: 108 lb 9.6 oz - Exam Quality Assessment: Supplemental Oxygen, DVT Prophylaxis General: Alert, Oriented, Cooperative, Moderate Distress HEENT: PERRLA, Hearing Intact, Mucosa Moist & Pentress, Nares Patent, Normal Nasal Septum, Posterior Pharynx Clear, Conjunctiva Clear, EOMI, EACs Clear, TMs Clear Neck: Supple, Trachea Midline, 2 Lungs: Decreased Breath Sounds, Wheezing Cardiovascular: Irregular Rhythm GI/Abdominal Exam: Normal Bowel Sounds, Soft, Non-Tender, No Organomegaly, No Distention, No Abnormal Bruit, No Mass, Pelvis Stable (Female) Exam: Deferred Rectal (Female) Exam: Deferred Back Exam: Normal Inspection, Full Range of Motion Extremities: Normal Inspection, Normal Range of Motion, Non-Tender, No Pedal Edema, Normal Capillary Refill Skin: Warm, Dry, Intact Neurological: Cranial Nerves Intact, Reflexes Equal Bilateral Neuro Extensive - Mental Status: Alert, Oriented x3, Normal Mood/Affect, Normal Cognition Neuro Extensive - Motor, Sensory, Reflexes: CN II-XII Intact, Normal Gait, Normal Reflexes Psychiatric: Alert, Normal Affect, Normal Mood - Patient Data Lab Results Last 24 hrs: Laboratory Results - last 24 hr 12/26/17 12/26/17 12/26/17 Range/Units 20:32 20:32 20:32 WBC 13.5 H (5.0-10.0) 10^3/uL RBC 5.06 (4.2-5.4) 10^6/uL Hgb 14.9 D (12.0-16.0) g/dL Hct 46.3 (37.0-47.0) % MCV 91.5 (80-100) fL MCH 29.4 (27.0-34.0) pg MCHC 32.2 L (33.0-35.0) g/dL Plt Count 192 D (150-450) 10^3/uL Neut % (Auto) 89.3 H (42.2-75.2) % Lymph % (Auto) 5.8 L (20.5-50.1) % [place] % (Auto) 4.3 (2-8) % Eos % (Auto) 0.4 L (1.0-3.0) % Baso % (Auto) 0.2 (0.0-1.0) % Sodium 137 (135-145) mmol/L Potassium 4.2 (3.6-5.0) mmol/L Chloride 97 L (101-111) mmol/L Carbon Dioxide 30.0 (21.0-31.0) mmol/L Anion Gap 14.2 BUN 8 (7-18) mg/dL Creatinine 0.7 (0.6-1.3) mg/dL Est Cr Clr Drug Dosing 54.92 mL/min Estimated GFR (MDRD) > 60 BUN/Creatinine Ratio 11.42 Glucose 136 H (74-105) mg/dL Lactic Acid (0.5-2.2) mmol/L Calcium 9.4 (8.4-10.2) mg/dl Total Bilirubin 0.7 (0.2-1.0) mg/dL AST 23 (10-42) IU/L ALT 14 (10-60) IU/L Alkaline Phosphatase 64 (42-121) IU/L B-Natriuretic Peptide 58 (0-100) pg/ml Total Protein 7.7 (6.7-8.2) g/dl Albumin 4.3 (3.2-5.5) g/dl Globulin 3.4 Albumin/Globulin Ratio 1.26 12/26/17 Range/Units 21:00 WBC (5.0-10.0) 10^3/uL RBC (4.2-5.4) 10^6/uL Hgb (12.0-16.0) g/dL Hct (37.0-47.0) % MCV (80-100) fL MCH (27.0-34.0) pg MCHC (33.0-35.0) g/dL Plt Count (150-450) 10^3/uL Neut % (Auto) (42.2-75.2) % Lymph % (Auto) (20.5-50.1) % [place] % (Auto) (2-8) % Eos % (Auto) (1.0-3.0) % Baso % (Auto) (0.0-1.0) % Sodium (135-145) mmol/L Potassium (3.6-5.0) mmol/L Chloride (101-111) mmol/L Carbon Dioxide (21.0-31.0) mmol/L Anion Gap BUN (7-18) mg/dL Creatinine (0.6-1.3) mg/dL Est Cr Clr Drug Dosing mL/min Estimated GFR (MDRD) BUN/Creatinine Ratio Glucose (74-105) mg/dL Lactic Acid 1.7 (0.5-2.2) mmol/L Calcium (8.4-10.2) mg/dl Total Bilirubin (0.2-1.0) mg/dL AST (10-42) IU/L ALT (10-60) IU/L Alkaline Phosphatase (42-121) IU/L B-Natriuretic Peptide (0-100) pg/ml Total Protein (6.7-8.2) g/dl Albumin (3.2-5.5) g/dl Globulin Albumin/Globulin Ratio Result Diagrams: 12/27/17 06:19 12/26/17 20:32 [place] Results Last 24 hrs: Microbiology 12/26/17 20:32 Anaerobic Blood Culture - Final Blood - Venous - Lab Draw - Problem List (1) Acute exacerbation of chronic obstructive airways disease SNOMED Code(s): 968847192 ICD Code: J44.1 - CHRONIC OBSTRUCTIVE PULMONARY DISEASE W (ACUTE) EXACERBATION Status: Acute Current Visit: No (2) Acute exacerbation of chronic obstructive pulmonary disease SNOMED Code(s): 455925050 ICD Code: J44.1 - CHRONIC OBSTRUCTIVE PULMONARY DISEASE W (ACUTE) EXACERBATION Status: Acute Current Visit: No (3) Atrial fibrillation with rapid ventricular response SNOMED Code(s): 085543843354154 ICD Code: I48.91 - UNSPECIFIED ATRIAL FIBRILLATION Status: Acute Current Visit: No (4) Community acquired pneumonia SNOMED Code(s): 325246187 ICD Code: J18.9 - PNEUMONIA, UNSPECIFIED ORGANISM Status: Acute Current Visit: No (5) Pneumonia SNOMED Code(s): 199744194 ICD Code: J18.9 - PNEUMONIA, UNSPECIFIED ORGANISM Status: Acute Current Visit: No Onset Date: 12/21/15 Qualifiers: Pneumonia type: due to unspecified organism Laterality: right Lung location: lower lobe of lung Qualified Code(s): J18.1 - Lobar pneumonia, unspecified organism Problem List Initiated/Reviewed/Updated: Yes Orders Last 24hrs: Active Orders 24 hr Category Date Time Status Patient Status [ADT] Routine ADT 12/26/17 23:03 Ordered Antiembolic Devices [RC] .Routine Care 12/26/17 23:08 Ordered Oxygen Therapy [RC] CONTINUOUS Care 12/26/17 23:06 Ordered Pulse Oximetry [RC] CONTINUOUS Care 12/26/17 23:06 Ordered Up With Assistance [RC] ASDIRECTED Care 12/26/17 23:03 Ordered VTE/DVT Education [RC] PER UNIT ROUTINE Care 12/26/17 23:08 Ordered Vital Signs [RC] Q4H Care 12/26/17 23:03 Ordered Regular Diet [DIET] Diet 12/26/17 Breakfast Ordered Chest 2V [CR] Urgent Exams 12/26/17 20:30 Taken ABG [BLOOD GAS ARTERIAL] [BG] Routine Lab 12/26/17 23:15 Ordered CBC WITH AUTO DIFF [HEME] DAILY Lab 12/27/17 07:00 Ordered CULTURE BLOOD [BC] Stat Lab 12/26/17 20:32 Results CULTURE BLOOD [BC] Stat Lab 12/26/17 21:00 Received CULTURE SPUTUM + SMEAR [RM] Routine Lab 12/26/17 23:18 Ordered INR,PT,PROTHROMBIN TIME [COAG] DAILY Lab 12/27/17 07:00 Ordered INR,PT,PROTHROMBIN TIME [COAG] DAILY Lab 12/28/17 07:00 Ordered INR,PT,PROTHROMBIN TIME [COAG] DAILY Lab 12/29/17 07:00 Ordered INR,PT,PROTHROMBIN TIME [COAG] DAILY Lab 12/30/17 07:00 Ordered INR,PT,PROTHROMBIN TIME [COAG] DAILY Lab 12/31/17 07:00 Ordered INR,PT,PROTHROMBIN TIME [COAG] DAILY Lab 01/01/18 07:00 Ordered INR,PT,PROTHROMBIN TIME [COAG] DAILY Lab 01/02/18 07:00 Ordered INR,PT,PROTHROMBIN TIME [COAG] DAILY Lab 01/03/18 07:00 Ordered INR,PT,PROTHROMBIN TIME [COAG] DAILY Lab 01/04/18 07:00 Ordered INR,PT,PROTHROMBIN TIME [COAG] DAILY Lab 01/05/18 07:00 Ordered INR,PT,PROTHROMBIN TIME [COAG] DAILY Lab 01/06/18 07:00 Ordered UA W/MICROSCOPIC [URIN] Stat Lab 12/26/17 20:30 Ordered Acetaminophen [Tylenol] Med 12/26/17 23:03 Ordered 650 mg PO Q4H PRN Albuterol [Proventil HFA] Med 12/26/17 23:08 Ordered 2 puff INH Q4H PRN Albuterol/Ipratropium [DuoNeb 3.0-0.5 MG/3 ML] Med 12/26/17 23:30 Ordered 3 ml NEB Q4HRRT Azithromycin [Zithromax] 500 mg Med 12/26/17 23:15 Ordered Sodium Chloride 0.9% [Normal Saline] 250 ml IV Q24H Fluticasone/Salmeterol [Advair 100-50] Med 12/26/17 23:08 Ordered 2 puff INH BID PRN Heparin Sodium Med 12/26/17 23:15 Ordered 5,000 units SUBCUT Q12H Levothyroxine [Synthroid] Med 12/27/17 06:00 Ordered 50 mcg PO ACBRK Multivitamin [Multivitamins] Med 12/27/17 09:00 Ordered 1 tab PO DAILY Nicotine [Habitrol] Med 12/27/17 09:00 Ordered 21 mg TRDERM DAILY Sertraline [Zoloft] Med 12/27/17 09:00 Ordered 25 mg PO DAILY Tiotropium [Spiriva HandiHaler] Med 12/27/17 09:00 Ordered 1 puff INH DAILY Warfarin Pharmacy to Dose [Pharmacy to Dose - Warfarin] Med 12/26/17 23:15 Ordered 1 dose .XX ASDIRECTED atorvaSTATin [Lipitor] Med 12/27/17 09:00 Ordered 20 mg PO DAILY cefTRIAXone [Rocephin] 1,000 mg Med 12/26/17 23:15 Ordered Sodium Chloride 0.9% [Normal Saline] 100 ml IV Q24H methylPREDNISolone Sod Succ [Solu-MEDROL] Med 12/26/17 23:15 Ordered 60 mg IVPUSH Q8H Blood Culture x2 Reflex Set [OM.PC] Stat Oth 12/26/17 20:32 Ordered DVT/VTE Prophylaxis Reflex [OM.PC] Routine Oth 12/26/17 23:03 Ordered Resuscitation Status Routine Resus Stat 12/26/17 23:03 Ordered Medication Orders Acetaminophen (Tylenol) 650 mg PO Q4H PRN PRN Reason: Pain (mild 1-3 )/fever Albuterol (Proventil Hfa) gm INH Q4H PRN PRN Reason: Shortness of Breath Albuterol/Ipratropium (Duoneb 3.0-0.5 Mg/3 Ml) 3 ml NEB Q4HRRT [facility] Atorvastatin Calcium (Lipitor) 20 mg PO DAILY [facility] Heparin Sodium (Porcine) (Heparin Sodium) 5,000 units SUBCUT Q12H [facility] Azithromycin 500 mg/ Sodium (Chloride) 250 mls @ 250 mls/hr IV Q24H [facility] Ceftriaxone Sodium 1,000 mg/ (Sodium Chloride) 100 mls @ 200 mls/hr IV Q24H [facility] Levothyroxine Sodium (Synthroid) 50 mcg PO ACBRK [facility] Methylprednisolone Sodium Succinate (Solu-Medrol) 60 mg IVPUSH Q8H [facility] Nicotine (Habitrol) 21 mg TRDERM DAILY [facility] Non-Formulary Medication (Fluticasone/Salmeterol [Advair 100-50]) 2 puff INH BID PRN PRN Reason: Congestion Non-Formulary Medication (Multivitamin [Multivitamins]) 1 tab PO DAILY [facility] Non-Formulary Medication (Sertraline [Zoloft]) 25 mg PO DAILY [facility] Tiotropium [place] (Spiriva Handihaler) mcg INH DAILY [facility] Warfarin Sodium (Pharmacy To Dose - Warfarin) 1 dose .XX ASDIRECTED [facility] Assessment/Plan Comment:: #Acute hypoxic respiratory failure requiring oxygen -This is due to COPD exacerbation vs pneumonia -continue supplemental oxygen and wean off as tolerated -She is now on 3L and saturating at 92% #COPD exacerbation due to pneumonia -Due-NEBs q4h -Fluticasone/Salmeterol -Methylprednisolone 60 mg tid -Azithromycin #Community Acquired Pneumonia -IV ceftriaxone and Azithromycin -Follow sputum gram stain and cx -follow blood cx #Likely sepsis -IVF -continue IV abx -follow cultures #Continuous tobacco abuse -advised to quit -nicotine patch #GERD -Pantoprazole #Hypothyroidism -on levothyroxine #HLD -continue lipitor #A-Fib -rate controlled -On warfarin for chronic anticoagulation -pharmacy to dose #Cardiac diet #Full code
[2017-12-26] MEDS: Heparin Sodium 5,000 Units/ML Vial SUBCUT SCH (23:30)
[2017-12-26] MEDS: Albuterol/Ipratropium 3.0-0.5 MG/3 ML Neb Soln NEB SCH (23:30)
[2017-12-26] MEDS: methylPREDNISolone Sodium Succinate 125 MG/2 ML SDV IVPUSH SCH (23:43)
[2017-12-26] MEDS: ALPRAZolam 0.25 MG Tab PO PRN (23:44)
[2017-12-26] MEDS: Azithromycin 500 MG in Sodium Chloride 0.9% 250 ML IV SCH (23:47)
[2017-12-27] MEDS ORDERED: Albuterol/Ipratropium 3.0-0.5 MG/3 ML Neb Soln NEB SCH (03:00)
[2017-12-27] MEDS: Albuterol/Ipratropium 3.0-0.5 MG/3 ML Neb Soln NEB SCH ×6 (03:28→23:47)
[2017-12-27] MEDS: Levothyroxine 50 MCG Tab PO SCH (06:21)
[2017-12-27] MEDS: Formoterol/Mometasone 100-5 MCG 8.8 GM Inhaler IH SCH ×2 (08:45→20:56)
[2017-12-27] MEDS: atorvaSTATin 20 MG Tab PO SCH (08:46)
[2017-12-27] MEDS: methylPREDNISolone Sodium Succinate 125 MG/2 ML SDV IVPUSH SCH ×3 (08:46→23:32)
[2017-12-27] MEDS: Multivitamins,Therapeutic Tab PO SCH (08:46)
[2017-12-27] MEDS: Sertraline 50 MG Tab PO SCH (08:46)
[2017-12-27] MEDS: Tiotropium Inhaler 18 MCG Inhalation Powder Cap Kit of 5 INH SCH (08:46)
[2017-12-27] MEDS: Nicotine 21 MG/24 Hr Patch TRDERM SCH (08:47)
--- NOTE | 2017-12-27 11:05 | PCM.PN ---
- General Info Date of Service: 12/27/17 Admission Dx/Problem (Free Text): Admission Diagnosis/Problem Admission Diagnosis/Problem Pneumonia Subjective Update: Patient is 77 y/o female with PMH of continuous tobacco abuse, Asthma/COPD, medical non-compliance, GERD, HLD, Hypothyroidism. She presented to the ED with increasing SOB. She was found to have pneumonia and was subsequently admitted for COPD exacerbation due to pneumonia. Functional Status: Reports: Pain Controlled - Review of Systems General: Reports: No Symptoms HEENT: Reports: No Symptoms Pulmonary: Reports: No Symptoms Cardiovascular: Reports: No Symptoms Gastrointestinal: Reports: No Symptoms Genitourinary: Reports: No Symptoms Musculoskeletal: Reports: No Symptoms Skin: Reports: No Symptoms Neurological: Reports: No Symptoms Psychiatric: Reports: No Symptoms - Patient Data Vitals - Most Recent: Last Vital Signs Temp 99.8 F 12/27/17 02:21 Pulse 104 H 12/27/17 08:31 Resp 20 12/27/17 02:21 BP 146/76 H 12/26/17 23:15 Pulse Ox 95 12/27/17 02:21 Weight - Most Recent: 108 lb 9.6 oz I&O - Last 24 Hours: Intake & Output 12/26/17 12/27/17 12/27/17 22:59 06:59 14:59 Intake Total 150 250 Output Total 200 Balance -50 250 Lab Results Last 24 Hours: Laboratory Results - last 24 hr 12/26/17 12/26/17 12/26/17 Range/Units 20:32 20:32 20:32 WBC 13.5 H (5.0-10.0) 10^3/uL RBC 5.06 (4.2-5.4) 10^6/uL Hgb 14.9 D (12.0-16.0) g/dL Hct 46.3 (37.0-47.0) % MCV 91.5 (80-100) fL MCH 29.4 (27.0-34.0) pg MCHC 32.2 L (33.0-35.0) g/dL Plt Count 192 D (150-450) 10^3/uL Neut % (Auto) 89.3 H (42.2-75.2) % Lymph % (Auto) 5.8 L (20.5-50.1) % [place] % (Auto) 4.3 (2-8) % Eos % (Auto) 0.4 L (1.0-3.0) % Baso % (Auto) 0.2 (0.0-1.0) % PT (9.0-12.0) SEC INR (0.9-1.2) Sodium 137 (135-145) mmol/L Potassium 4.2 (3.6-5.0) mmol/L Chloride 97 L (101-111) mmol/L Carbon Dioxide 30.0 (21.0-31.0) mmol/L Anion Gap 14.2 BUN 8 (7-18) mg/dL Creatinine 0.7 (0.6-1.3) mg/dL Est Cr Clr Drug Dosing 54.92 mL/min Estimated GFR (MDRD) > 60 BUN/Creatinine Ratio 11.42 Glucose 136 H (74-105) mg/dL Lactic Acid (0.5-2.2) mmol/L Calcium 9.4 (8.4-10.2) mg/dl Total Bilirubin 0.7 (0.2-1.0) mg/dL AST 23 (10-42) IU/L ALT 14 (10-60) IU/L Alkaline Phosphatase 64 (42-121) IU/L B-Natriuretic Peptide 58 (0-100) pg/ml Total Protein 7.7 (6.7-8.2) g/dl Albumin 4.3 (3.2-5.5) g/dl Globulin 3.4 Albumin/Globulin Ratio 1.26 Urine Color (YELLOW) Urine Appearance (CLEAR) Urine pH (5.0-9.0) Ur Specific [place] (1.005-1.030) Urine Protein (NEGATIVE) Urine Glucose (UA) (NEGATIVE) Urine Ketones (NEGATIVE) Urine Occult Blood (NEGATIVE) Urine Nitrite (NEGATIVE) Urine Bilirubin (NEGATIVE) Urine Urobilinogen (0.2-1.0) mg/dL Ur Leukocyte Esterase (NEGATIVE) Urine RBC /HPF Urine WBC (0-5/HPF) /HPF Ur Epithelial Cells /HPF Urine Bacteria (0-FEW/HPF) /HPF 12/26/17 12/26/17 12/27/17 Range/Units 21:00 22:55 06:19 WBC 14.6 H (5.0-10.0) 10^3/uL RBC 4.52 (4.2-5.4) 10^6/uL Hgb 13.3 D (12.0-16.0) g/dL Hct 41.4 (37.0-47.0) % MCV 91.6 (80-100) fL MCH 29.4 (27.0-34.0) pg MCHC 32.1 L (33.0-35.0) g/dL Plt Count 176 (150-450) 10^3/uL Neut % (Auto) 94.2 H (42.2-75.2) % Lymph % (Auto) 3.4 L (20.5-50.1) % [place] % (Auto) 2.3 (2-8) % Eos % (Auto) 0.0 L (1.0-3.0) % Baso % (Auto) 0.1 (0.0-1.0) % PT (9.0-12.0) SEC INR (0.9-1.2) Sodium (135-145) mmol/L Potassium (3.6-5.0) mmol/L Chloride (101-111) mmol/L Carbon Dioxide (21.0-31.0) mmol/L Anion Gap BUN (7-18) mg/dL Creatinine (0.6-1.3) mg/dL Est Cr Clr Drug Dosing mL/min Estimated GFR (MDRD) BUN/Creatinine Ratio Glucose (74-105) mg/dL Lactic Acid 1.7 (0.5-2.2) mmol/L Calcium (8.4-10.2) mg/dl Total Bilirubin (0.2-1.0) mg/dL AST (10-42) IU/L ALT (10-60) IU/L Alkaline Phosphatase (42-121) IU/L B-Natriuretic Peptide (0-100) pg/ml Total Protein (6.7-8.2) g/dl Albumin (3.2-5.5) g/dl Globulin Albumin/Globulin Ratio Urine Color Yellow (YELLOW) Urine Appearance Clear (CLEAR) Urine pH 7.0 (5.0-9.0) Ur Specific [place] 1.020 (1.005-1.030) Urine Protein 30 H (NEGATIVE) Urine Glucose (UA) Negative (NEGATIVE) Urine Ketones Negative (NEGATIVE) Urine Occult Blood Trace-intact H (NEGATIVE) Urine Nitrite Negative (NEGATIVE) Urine Bilirubin Negative (NEGATIVE) Urine Urobilinogen 0.2 (0.2-1.0) mg/dL Ur Leukocyte Esterase Trace H (NEGATIVE) Urine RBC 0-5 /HPF Urine WBC 0-5 (0-5/HPF) /HPF Ur Epithelial Cells Few /HPF Urine Bacteria Rare (0-FEW/HPF) /HPF 12/27/17 Range/Units 06:19 WBC (5.0-10.0) 10^3/uL RBC (4.2-5.4) 10^6/uL Hgb (12.0-16.0) g/dL Hct (37.0-47.0) % MCV (80-100) fL MCH (27.0-34.0) pg MCHC (33.0-35.0) g/dL Plt Count (150-450) 10^3/uL Neut % (Auto) (42.2-75.2) % Lymph % (Auto) (20.5-50.1) % [place] % (Auto) (2-8) % Eos % (Auto) (1.0-3.0) % Baso % (Auto) (0.0-1.0) % PT 25.6 H D (9.0-12.0) SEC INR 2.6 H (0.9-1.2) Sodium (135-145) mmol/L Potassium (3.6-5.0) mmol/L Chloride (101-111) mmol/L Carbon Dioxide (21.0-31.0) mmol/L Anion Gap BUN (7-18) mg/dL Creatinine (0.6-1.3) mg/dL Est Cr Clr Drug Dosing mL/min Estimated GFR (MDRD) BUN/Creatinine Ratio Glucose (74-105) mg/dL Lactic Acid (0.5-2.2) mmol/L Calcium (8.4-10.2) mg/dl Total Bilirubin (0.2-1.0) mg/dL AST (10-42) IU/L ALT (10-60) IU/L Alkaline Phosphatase (42-121) IU/L B-Natriuretic Peptide (0-100) pg/ml Total Protein (6.7-8.2) g/dl Albumin (3.2-5.5) g/dl Globulin Albumin/Globulin Ratio Urine Color (YELLOW) Urine Appearance (CLEAR) Urine pH (5.0-9.0) Ur Specific [place] (1.005-1.030) Urine Protein (NEGATIVE) Urine Glucose (UA) (NEGATIVE) Urine Ketones (NEGATIVE) Urine Occult Blood (NEGATIVE) Urine Nitrite (NEGATIVE) Urine Bilirubin (NEGATIVE) Urine Urobilinogen (0.2-1.0) mg/dL Ur Leukocyte Esterase (NEGATIVE) Urine RBC /HPF Urine WBC (0-5/HPF) /HPF Ur Epithelial Cells /HPF Urine Bacteria (0-FEW/HPF) /HPF [place] Results Last 24 Hours: Microbiology 12/26/17 20:32 Anaerobic Blood Culture - Final Blood - Venous - Lab Draw Med Orders - Current: Current Medications Acetaminophen (Tylenol) 650 mg PO Q4H PRN PRN Reason: Pain (mild 1-3 )/fever Last Admin: 12/26/17 23:43 Dose: 650 mg Albuterol (Proventil Hfa) 0 gm INH Q4H PRN PRN Reason: Shortness of Breath Albuterol/Ipratropium (Duoneb 3.0-0.5 Mg/3 Ml) 3 ml NEB Q4HRRT [facility] Last Admin: 12/27/17 08:31 Dose: 3 ml Alprazolam (Xanax) 0.25 mg PO Q8H PRN PRN Reason: Anxiety Last Admin: 12/26/17 23:44 Dose: 0.25 mg Atorvastatin Calcium (Lipitor) 20 mg PO DAILY [facility] Last Admin: 12/27/17 08:46 Dose: 20 mg Heparin Sodium (Porcine) (Heparin Sodium) 5,000 units SUBCUT Q12H [facility] Last Admin: 12/26/17 23:30 Dose: 5,000 units Azithromycin 500 mg/ Sodium (Chloride) 250 mls @ 250 mls/hr IV Q24H [facility] Last Admin: 12/26/17 23:47 Dose: Not Given Ceftriaxone Sodium 1,000 mg/ (Sodium Chloride) 100 mls @ 200 mls/hr IV Q24H [facility] Last Admin: 12/26/17 23:24 Dose: Not Given Levothyroxine Sodium (Synthroid) 50 mcg PO ACBRK [facility] Last Admin: 12/27/17 06:21 Dose: Not Given Methylprednisolone Sodium Succinate (Solu-Medrol) 60 mg IVPUSH Q8H [facility] Last Admin: 05/02/18 08:46 Dose: 60 mg Mometasone Furoate/Formoterol Fumar (Dulera 100-5 Mcg) 2 puff IH BID [facility] Last Admin: 12/27/17 08:45 Dose: 2 puff Multivitamins (Thera) 1 each PO DAILY [facility] Last Admin: 12/27/17 08:46 Dose: 1 each Nicotine (Habitrol) 21 mg TRDERM DAILY [facility] Last Admin: 12/27/17 08:47 Dose: Not Given Sertraline HCl (Zoloft) 25 mg PO DAILY [facility] Last Admin: 12/27/17 08:46 Dose: 25 mg Tiotropium [place] (Spiriva Handihaler) 18 mcg INH DAILY [facility] Last Admin: 12/27/17 08:46 Dose: 18 mcg Warfarin Sodium (Pharmacy To Dose - Warfarin) 1 dose .XX ASDIRECTED [facility] Discontinued Medications Albuterol/Ipratropium (Duoneb 3.0-0.5 Mg/3 Ml) 3 ml NEB Q4HRRT [facility] Ceftriaxone Sodium (Rocephin) 1 gm IVPUSH ONETIME ONE Stop: 12/26/17 21:44 Last Admin: 12/26/17 21:58 Dose: 1 gm Azithromycin 500 mg/ Sodium (Chloride) 250 mls @ 250 mls/hr IV ONETIME ONE Stop: 12/26/17 22:42 Last Admin: 12/26/17 22:01 Dose: 250 mls/hr - Exam General: Alert, Oriented HEENT: Pupils Equal, Pupils Reactive, EOMI, Mucous Membr. Moist/[place] Neck: Supple Lungs: Clear to Auscultation, Normal Respiratory Effort Cardiovascular: Regular Rate, Regular Rhythm GI/Abdominal Exam: Normal Bowel Sounds, Soft, Non-Tender, No Organomegaly, No Distention, No Abnormal Bruit, No Mass, Pelvis Stable (Female) Exam: Normal External Exam, Normal Speculum Exam, Normal Bimanual Exam Back Exam: Normal Inspection, Full Range of Motion Extremities: Normal Inspection, Normal Range of Motion, Non-Tender, No Pedal Edema, Normal Capillary Refill Skin: Warm, Dry, Intact Wound/Incisions: Healing Well Neurological: No New Focal Deficit Psy/Mental Status: Alert, Normal Affect, Normal Mood - Problem List & Annotations (1) Acute exacerbation of chronic obstructive airways disease SNOMED Code(s): 480093375 Code(s): J44.1 - CHRONIC OBSTRUCTIVE PULMONARY DISEASE W (ACUTE) EXACERBATION Status: Acute Current Visit: No (2) Acute exacerbation of chronic obstructive pulmonary disease SNOMED Code(s): 757606371 Code(s): J44.1 - CHRONIC OBSTRUCTIVE PULMONARY DISEASE W (ACUTE) EXACERBATION Status: Acute Current Visit: No (3) Atrial fibrillation with rapid ventricular response SNOMED Code(s): 518098399400348 Code(s): I48.91 - UNSPECIFIED ATRIAL FIBRILLATION Status: Acute Current Visit: No (4) Community acquired pneumonia SNOMED Code(s): 867361405 Code(s): J18.9 - PNEUMONIA, UNSPECIFIED ORGANISM Status: Acute Current Visit: No (5) Pneumonia SNOMED Code(s): 951319755 Code(s): J18.9 - PNEUMONIA, UNSPECIFIED ORGANISM Status: Acute Current Visit: No Onset Date: 12/21/15 Qualifiers: Pneumonia type: due to unspecified organism Laterality: right Lung location: lower lobe of lung Qualified Code(s): J18.1 - Lobar pneumonia, unspecified organism - Problem List Review Problem List Initiated/Reviewed/Updated: Yes - My Orders Last 24 Hours: My Active Orders 12/26/17 23:03 Patient Status [ADT] Routine Up With Assistance [RC] ASDIRECTED Vital Signs [RC] 08,12,16,20,00,04 Acetaminophen [Tylenol] 650 mg PO Q4H PRN DVT/VTE Prophylaxis Reflex [OM.PC] Routine Resuscitation Status Routine 12/26/17 23:06 Oxygen Therapy [RC] CONTINUOUS Pulse Oximetry [RC] CONTINUOUS 12/26/17 23:08 Antiembolic Devices [RC] .Routine VTE/DVT Education [RC] PER UNIT ROUTINE Albuterol [Proventil HFA] 0 gm INH Q4H PRN 12/26/17 23:15 ABG [BLOOD GAS ARTERIAL] [BG] Routine Warfarin Pharmacy to Dose [Pharmacy to Dose - Warfarin] 1 dose .XX ASDIRECTED 12/26/17 23:18 CULTURE SPUTUM + SMEAR [RM] Routine 12/26/17 23:22 ALPRAZolam [Xanax] 0.25 mg PO Q8H PRN 12/26/17 23:30 Albuterol/Ipratropium [DuoNeb 3.0-0.5 MG/3 ML] 3 ml NEB Q4HRRT cefTRIAXone [Rocephin] 1,000 mg Sodium Chloride 0.9% [Normal Saline] 100 ml IV Q24H 12/27/17 00:00 Azithromycin [Zithromax] 500 mg Sodium Chloride 0.9% [Normal Saline] 250 ml IV Q24H Heparin Sodium 5,000 units SUBCUT Q12H methylPREDNISolone Sod Succ [Solu-MEDROL] 60 mg IVPUSH Q8H 12/27/17 06:00 Levothyroxine [Synthroid] 50 mcg PO ACBRK 12/27/17 09:00 Mometasone/Formoterol [Dulera 100-5 MCG] 2 puff IH BID Multivitamins,Therapeutic [Thera] 1 each PO DAILY Nicotine [Habitrol] 21 mg TRDERM DAILY Sertraline [Zoloft] 25 mg PO DAILY Tiotropium [Spiriva HandiHaler] 18 mcg INH DAILY atorvaSTATin [Lipitor] 20 mg PO DAILY 12/28/17 07:00 INR,PT,PROTHROMBIN TIME [COAG] DAILY 12/29/17 07:00 INR,PT,PROTHROMBIN TIME [COAG] DAILY 12/30/17 07:00 INR,PT,PROTHROMBIN TIME [COAG] DAILY 12/31/17 07:00 INR,PT,PROTHROMBIN TIME [COAG] DAILY 01/01/18 07:00 INR,PT,PROTHROMBIN TIME [COAG] DAILY 01/02/18 07:00 INR,PT,PROTHROMBIN TIME [COAG] DAILY 01/03/18 07:00 INR,PT,PROTHROMBIN TIME [COAG] DAILY 01/04/18 07:00 INR,PT,PROTHROMBIN TIME [COAG] DAILY 01/05/18 07:00 INR,PT,PROTHROMBIN TIME [COAG] DAILY 01/06/18 07:00 INR,PT,PROTHROMBIN TIME [COAG] DAILY - Plan Plan:: #Acute hypoxic respiratory failure requiring oxygen -due to COPD exacerbation vs pneumonia -improving -continue supplemental oxygen and wean off as tolerated -She is now on 2L and saturating at 92% #COPD exacerbation due to pneumonia -Due-NEBs q4h -Fluticasone/Salmeterol -Methylprednisolone 60 mg tid -Azithromycin #Community Acquired Pneumonia -IV ceftriaxone and Azithromycin -Follow sputum gram stain and cx -follow blood cx #Likely sepsis -Resolving -IVF -continue IV abx -follow cultures #Continuous tobacco abuse -advised to quit -nicotine patch #GERD -Pantoprazole #Hypothyroidism -on levothyroxine #HLD -continue lipitor #A-Fib -rate controlled -On warfarin for chronic anticoagulation -pharmacy to dose #Cardiac diet #Full code
[2017-12-27] MEDS: Heparin Sodium 5,000 Units/ML Vial SUBCUT SCH ×2 (12:19→23:45)
[2017-12-27] MEDS ORDERED: Warfarin 2.5 MG Tab PO ONE (14:30)
[2017-12-27] MEDS ORDERED: Sodium Chloride 0.9% 10 ML Syringe FLUSH PRN (21:00)
[2017-12-27] MEDS ORDERED: cefTRIAXone 1 GM Vial IVPUSH SCH (21:00)
[2017-12-27] MEDS: Azithromycin 500 MG in Sodium Chloride 0.9% 250 ML IV SCH (23:32)
[2017-12-28] MEDS: ALPRAZolam 0.25 MG Tab PO PRN (00:23)
[2017-12-28] MEDS: Albuterol/Ipratropium 3.0-0.5 MG/3 ML Neb Soln NEB SCH ×3 (03:47→11:38)
[2017-12-28] MEDS: Levothyroxine 50 MCG Tab PO SCH (05:34)
[2017-12-28 06:58] LABS: CHLORIDE,CL 98 mmol/L (101-111); SODIUM,NA 136 mmol/L (135-145)
[2017-12-28] MEDS: atorvaSTATin 20 MG Tab PO SCH (09:09)
[2017-12-28] MEDS: Multivitamins,Therapeutic Tab PO SCH (09:09)
[2017-12-28] MEDS: Sertraline 50 MG Tab PO SCH (09:10)
[2017-12-28] MEDS: Nicotine 21 MG/24 Hr Patch TRDERM SCH (09:10)
[2017-12-28] MEDS: Tiotropium Inhaler 18 MCG Inhalation Powder Cap Kit of 5 INH SCH (09:10)
[2017-12-28] MEDS: Formoterol/Mometasone 100-5 MCG 8.8 GM Inhaler IH SCH (09:10)
[2017-12-28] MEDS: methylPREDNISolone Sodium Succinate 125 MG/2 ML SDV IVPUSH SCH (09:20)
[2017-12-28 11:13] VITALS: BP 129/59
--- NOTE | 2017-12-28 11:15 | PCM.DCSUM1 ---
Discharge Summary - Hospital Course Free Text/Narrative:: #Acute hypoxic respiratory failure requiring oxygen -due to COPD exacerbation vs pneumonia -improved #COPD exacerbation due to pneumonia -Due-NEBs prn -Fluticasone/Salmeterol -taper steroid #Community Acquired Pneumonia -IV ceftriaxone and Azithromycin - finish with po Levofloxacin Blood cx: neg for now #Likely sepsis -Resolved #Continuous tobacco abuse -advised to quit #GERD -Pantoprazole #Hypothyroidism -on levothyroxine #HLD -continue lipitor #A-Fib -rate controlled -On warfarin for chronic anticoagulation - Discharge Data Discharge Date: 12/28/17 Discharge Disposition: Home, Self-Care 01 Condition: Fair - Patient Instructions Diet: Usual Diet as Tolerated Activity: As Tolerated - Discharge Plan Prescriptions/Med Rec: Levofloxacin 500 mg PO DAILY #7 tablet Prednisone [IJD: Prednisone] See Taper PO DAILY #30 tab Home Medications: Home Meds Fluticasone/Salmeterol [Advair 100-50] 2 puff INH BID PRN 07/28/13 [History] Tiotropium [Spiriva Handihaler] 1 puff INH DAILY 07/28/13 [History] Warfarin [Coumadin] 7.5 mg PO DAILY 07/28/13 [History] Albuterol [Proventil HFA] 2 puff INH Q4H PRN 03/26/14 [History] Levothyroxine [Synthroid] 50 mcg PO ACBRK 03/26/14 [History] Sertraline [Zoloft] 25 mg PO DAILY 03/26/14 [History] Gluc HCl/Csa/[place] Hy/Hyalur Ac [Glucosamine Chondroitin] 2 tab PO DAILY [History] Ipratropium/Albuterol Sulfate [Duoneb 0.5 mg-3 mg/3 ml Soln] 1 ampule INH Q4HR PRN 05/01/14 [History] Multivitamin [Multivitamins] 1 tab PO DAILY 05/01/14 [History] Rolaids 2 tab.chew CHEW ASDIRECTED PRN 05/01/14 [History] atorvaSTATin Calcium [Atorvastatin Calcium] 20 mg PO DAILY 12/21/15 [History] Levofloxacin 500 mg PO DAILY #7 tablet 12/28/17 [Rx] Prednisone [IJD: Prednisone] See Taper PO DAILY #30 tab 12/28/17 [Rx] Referrals: Maddi Hermosillo PA [Primary Care Provider] - (early next week) - Discharge Summary/Plan Comment DC Time >30 min.: No - General Info Date of Service: 12/28/17 Subjective Update: Patient is 77 y/o female with PMH of continuous tobacco abuse, Asthma/COPD, medical non-compliance, GERD, HLD, Hypothyroidism. She presented to the ED with increasing SOB. She was found to have pneumonia and was subsequently admitted for COPD exacerbation due to pneumonia. She is feeling well, walking around. She has no chills, shortness of breath has improved. She feels back to baseline. - Review of Systems General: Denies: Fever, Weakness Pulmonary: Reports: Shortness of Breath (Chronic) Cardiovascular: Denies: Chest Pain Gastrointestinal: Denies: Abdominal Pain Neurological: Denies: Confusion - Patient Data Vitals - Most Recent: Last Vital Signs Temp 36.3 C 12/28/17 08:00 Pulse 76 12/28/17 08:00 Resp 20 12/28/17 08:00 BP 110/50 L 12/28/17 08:00 Pulse Ox 97 12/28/17 08:00 Weight - Most Recent: 49.26 kg I&O - Last 24 hours: Intake & Output 12/27/17 12/28/17 12/28/17 22:59 06:59 14:59 Intake Total 1040 650 170 Output Total 1100 1800 Balance -60 -1150 170 Lab Results - Last 24 hrs: Laboratory Results - last 24 hr 12/28/17 12/28/17 12/28/17 Range/Units 06:19 06:19 06:19 WBC 16.5 H (5.0-10.0) 10^3/uL RBC 4.27 (4.2-5.4) 10^6/uL Hgb 12.5 (12.0-16.0) g/dL Hct 38.8 (37.0-47.0) % MCV 90.9 (80-100) fL MCH 29.3 (27.0-34.0) pg MCHC 32.2 L (33.0-35.0) g/dL Plt Count 201 (150-450) 10^3/uL Neut % (Auto) 94.9 H (42.2-75.2) % Lymph % (Auto) 2.8 L (20.5-50.1) % Patrick % (Auto) 2.2 (2-8) % Eos % (Auto) 0.0 L (1.0-3.0) % Baso % (Auto) 0.1 (0.0-1.0) % PT 22.2 H (9.0-12.0) SEC INR 2.3 H (0.9-1.2) Sodium 136 (135-145) mmol/L Potassium 4.1 (3.6-5.0) mmol/L Chloride 98 L (101-111) mmol/L Carbon Dioxide 29.0 (21.0-31.0) mmol/L Anion Gap 13.1 BUN 16 (7-18) mg/dL Creatinine 0.7 (0.6-1.3) mg/dL Est Cr Clr Drug Dosing 54.00 mL/min Estimated GFR (MDRD) > 60 Glucose 146 H (74-105) mg/dL Calcium 9.0 (8.4-10.2) mg/dl DARLENE Results - Last 24 hrs: Microbiology 12/26/17 21:00 Aerobic Blood Culture - Preliminary Blood - Venous NO GROWTH AFTER 1 DAY Anaerobic Blood Culture - Preliminary NO GROWTH AFTER 1 DAY 12/26/17 20:32 Aerobic Blood Culture - Preliminary Blood - Venous - Lab Draw NO GROWTH AFTER 1 DAY Anaerobic Blood Culture - Final Med Orders - Current: Current Medications Acetaminophen (Tylenol) 650 mg PO Q4H PRN PRN Reason: Pain (mild 1-3 )/fever Last Admin: 12/26/17 23:43 Dose: 650 mg Albuterol (Proventil Hfa) 0 gm INH Q4H PRN PRN Reason: Shortness of Breath Albuterol/Ipratropium (Duoneb 3.0-0.5 Mg/3 Ml) 3 ml NEB Q4HRRT [facility] Last Admin: 12/28/17 07:10 Dose: 3 ml Alprazolam (Xanax) 0.25 mg PO Q8H PRN PRN Reason: Anxiety Last Admin: 12/28/17 00:23 Dose: 0.25 mg Atorvastatin Calcium (Lipitor) 20 mg PO DAILY [facility] Last Admin: 12/28/17 09:09 Dose: 20 mg Ceftriaxone Sodium (Rocephin) 1 gm IVPUSH Q24H [facility] Last Admin: 12/27/17 21:01 Dose: 1 gm Heparin Sodium (Porcine) (Heparin Sodium) 5,000 units SUBCUT Q12H [facility] Last Admin: 12/27/17 23:45 Dose: 5,000 units Azithromycin 500 mg/ Sodium (Chloride) 250 mls @ 250 mls/hr IV Q24H COUNT INCLUDES [facility] Last Infusion: 12/28/17 02:05 Dose: Infused Levothyroxine Sodium (Synthroid) 50 mcg PO ACBRK COUNT INCLUDES [facility] Last Admin: 12/28/17 05:34 Dose: 50 mcg Methylprednisolone Sodium Succinate (Solu-Medrol) 60 mg IVPUSH Q8H [facility]CLUD[facility] Last Admin: 12/28/17 09:20 Dose: 60 mg Mometasone Furoate/Formoterol Fumar (Dulera 100-5 Mcg) 2 puff IH BID COUNT [facility]CLUD[facility] Last Admin: 12/28/17 09:10 Dose: 2 puff Multivitamins (Thera) 1 each PO DAILY [facility] Last Admin: 12/28/17 09:09 Dose: 1 each Nicotine (Habitrol) 21 mg TRDERM DAILY [facility] Last Admin: 12/28/17 09:10 Dose: Not Given Sertraline HCl (Zoloft) 25 mg PO DAILY [facility] Last Admin: 12/28/17 09:10 Dose: 25 mg Sodium Chloride (Saline Flush) 10 ml FLUSH ASDIRECTED PRN PRN Reason: IV Use Last Admin: 12/27/17 23:31 Dose: 10 ml Tiotropium [place] (Spiriva Handihaler) 18 mcg INH DAILY [facility] Last Admin: 12/28/17 09:10 Dose: 18 mcg Warfarin Sodium (Pharmacy To Dose - Warfarin) 1 dose .XX ASDIRECTED COUNT [facility]CLUDES THE [facility] Warfarin Sodium (Coumadin) 7.5 mg PO ONETIME ONE Stop: 12/28/17 14:01 Discontinued Medications Albuterol/Ipratropium (Duoneb 3.0-0.5 Mg/3 Ml) 3 ml NEB Q4HRRT COUNT [facility]CLUDES [facility] Ceftriaxone Sodium (Rocephin) 1 gm IVPUSH ONETIME ONE Stop: 12/26/17 21:44 Last Admin: 12/26/17 21:58 Dose: 1 gm Azithromycin 500 mg/ Sodium (Chloride) 250 mls @ 250 mls/hr IV ONETIME ONE Stop: 12/26/17 22:42 Last Admin: 05/01/18 22:01 Dose: 250 mls/hr Ceftriaxone Sodium 1,000 mg/ (Sodium Chloride) 100 mls @ 200 mls/hr IV Q24H [facility] Last Admin: 12/26/17 23:24 Dose: Not Given Warfarin Sodium (Coumadin) 7.5 mg PO ONETIME ONE Stop: 12/27/17 14:31 Last Admin: 12/27/17 14:25 Dose: 7.5 mg - Exam General: Reports: Alert, Oriented Lungs: Reports: Normal Respiratory Effort, Decreased Breath Sounds. Denies: Wheezing Cardiovascular: Reports: Regular Rate, Regular Rhythm GI/Abdominal Exam: Normal Bowel Sounds, Soft, Non-Tender Extremities: No Pedal Edema
[2017-12-28] MEDS ORDERED: Warfarin 2.5 MG Tab PO ONE (14:00)
== END 2017-12-28 11:52 | disposition home or self-care (01) | DRG 871 ==
LOC: DL.ED 20:21 → DL.MS 22:13 → UNDOADMIN 22:13 → DL.MS 23:03
PROVIDERS: ADMIT Student in an Organized Health Care Education/Training Program; ATTEND Student in an Organized Health Care Education/Training Program
DX: J18.1 Lobar pneumonia, unspecified organism (principal); A41.9 Sepsis, unspecified organism; J18.9 Pneumonia, unspecified organism; J96.01 Acute respiratory failure with hypoxia; J44.0 Chronic obstructive pulmonary disease with (acute) lower respiratory infection; J44.1 Chronic obstructive pulmonary disease with (acute) exacerbation; E78.00 Pure hypercholesterolemia, unspecified; F17.210 Nicotine dependence, cigarettes, uncomplicated; H54.7 Unspecified visual loss; E78.5 Hyperlipidemia, unspecified; I48.91 Unspecified atrial fibrillation; H26.9 Unspecified cataract; K21.9 Gastro-esophageal reflux disease without esophagitis; M19.90 Unspecified osteoarthritis, unspecified site; F41.9 Anxiety disorder, unspecified; F32.9 Major depressive disorder, single episode, unspecified; E03.9 Hypothyroidism, unspecified; E61.1 Iron deficiency; D64.9 Anemia, unspecified; R06.02 Shortness of breath; Z91.19 Patient's noncompliance with other medical treatment and regimen; Z79.01 Long term (current) use of anticoagulants; Z86.73 Personal history of transient ischemic attack (TIA), and cerebral infarction without residual deficits; Z79.52 Long term (current) use of systemic steroids; Z79.899 Other long term (current) drug therapy; H91.90 Unspecified hearing loss, unspecified ear; Z28.21 Immunization not carried out because of patient refusal
CPT/HCPCS: 36415; 71046; 80053; 83605; 83880; 85025; 87040 ×2; 96365; 96375; 99285; J0456; J0696; J7050; 80048; 81001; 85610; 94640; A9270-GY; J1644; J2930

== ENCOUNTER 2018-05-11 15:20 | Emergency (ER) | payer MEDICARE, OTHER ==
[2018-05-11 16:35] VITALS: BP 130/58
[2018-05-11] MEDS ORDERED: Sodium Chloride 0.9% 10 ML Syringe FLUSH PRN (16:51)
[2018-05-11 17:40] LABS: CHLORIDE,CL 95 mmol/L (101-111); SODIUM,NA 138 mmol/L (135-145)
[2018-05-11] MEDS ORDERED: methylPREDNISolone Sodium Succinate 125 MG/2 ML SDV IVPUSH ONE (17:56)
--- NOTE | 2018-05-11 18:09 | EDM.PDOC ---
ED HPI GENERAL MEDICAL PROBLEM - General Chief Complaint: Respiratory Problem Stated Complaint: PNEUMOINA [id number] Time Seen by Provider: 05/11/18 17:29 Source of Information: Reports: Patient, RN, RN Notes Reviewed History Limitations: Reports: No Limitations - History of Present Illness INITIAL COMMENTS - FREE TEXT/NARRATIVE: Patient presents to ER with complaint of cough with sputum, shortness of breath and decreased appetite. No fever, chills, or chest pain. Onset: Gradual Duration: Getting Worse Location: Reports: Chest Quality: Reports: Ache Severity: Moderate Improves with: Reports: None Worsens with: Reports: None Associated Symptoms: Reports: No Other Symptoms - Related Data Allergies Allergy/AdvReac Type Severity Reaction Status Date / Time No Known Allergies Allergy Verified 05/11/18 16:17 Home Meds: Home Meds Fluticasone/Salmeterol [Advair 100-50] 2 puff INH BID PRN 07/28/13 [History] Tiotropium [Spiriva Handihaler] 1 puff INH DAILY 07/28/13 [History] Warfarin [Coumadin] 7.5 mg PO DAILY 07/28/13 [History] Albuterol [Proventil HFA] 2 puff INH Q4H PRN 03/26/14 [History] Levothyroxine [Synthroid] 50 mcg PO ACBRK 03/26/14 [History] Sertraline [Zoloft] 25 mg PO DAILY 03/26/14 [History] Gluc HCl/Csa/[place] Hy/Hyalur Ac [Glucosamine Chondroitin] 2 tab PO DAILY [History] Ipratropium/Albuterol Sulfate [Duoneb 0.5 mg-3 mg/3 ml Soln] 1 ampule INH Q4HR PRN 05/01/14 [History] Multivitamin [Multivitamins] 1 tab PO DAILY 05/01/14 [History] Rolaids 2 tab.chew CHEW ASDIRECTED PRN 05/01/14 [History] atorvaSTATin Calcium [Atorvastatin Calcium] 20 mg PO DAILY 12/21/15 [History] Past Medical History HEENT History: Reports: Cataract, Hard of Hearing, Impaired Vision, Other (See Below) Other HEENT History: very early cataracts Cardiovascular History: Reports: High Cholesterol Respiratory History: Reports: Asthma, Bronchitis, Recurrent, COPD, SOB 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: Reports: GERD 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 DRIVER History: 3 NVD Musculoskeletal History: Reports: Arthritis, Fracture, Other (See Below) Other Musculoskeletal History: history of fractured wrist (right), fractured clavicle Neurological History: Reports: CVA Psychiatric History: Reports: Anxiety, Depression Endocrine/Metabolic History: Reports: Hypothyroidism Hematologic History: Reports: Anemia, Iron Deficiency Immunologic History: Reports: None Oncologic (Cancer) History: Reports: None - Past Surgical History HEENT Surgical History: Reports: Tonsillectomy GI Surgical History: Reports: Appendectomy Female Surgical History: Reports: D&C Social & Family History - Family History Family Medical History: Noncontributory Respiratory: Reports: TB - Tobacco Use Smoking Status *Q: Current Every Day Smoker Years of Tobacco use: 63 Packs/Tins Daily: 1 Second Hand Smoke Exposure: Yes - Caffeine Use Caffeine Use: Reports: Coffee Other Caffeine Use: 1-2 pots/day - Recreational Drug Use Recreational Drug Use: No - Living Situation & Occupation Living situation: Reports: with Family ED ROS GENERAL - Review of Systems Review Of Systems: ROS reveals no pertinent complaints other than HPI. ED EXAM, GENERAL - Physical Exam Exam: See Below Exam Limited By: No Limitations General Appearance: Other (thin and ill appearing) Eye Exam: Bilateral Eye: EOMI, Normal Inspection, PERRL Ears: Normal External Exam, Normal Canal, Hearing Grossly Normal, Normal TMs Nose: Normal Inspection, Normal Mucosa, No Blood Throat/Mouth: Normal Inspection, Normal Lips, Normal Teeth, Normal Gums, Normal Oropharynx, Normal Voice, No Airway Compromise Head: Atraumatic, Normocephalic Neck: Normal Inspection, Supple, Non-Tender, Full Range of Motion Respiratory/Chest: Crackles (diminished cracakles at bases) Cardiovascular: Irregularly Irregular GI/Abdominal: Normal Bowel Sounds, Soft, Non-Tender, No Organomegaly, No Distention, No Abnormal Bruit, No Mass (Female) Exam: Deferred Rectal (Female) Exam: Deferred Back Exam: Normal Inspection, Full Range of Motion, NT Extremities: Normal Inspection, Normal Range of Motion, Non-Tender, Normal Capillary Refill, No Pedal Edema Neurological: Alert, Oriented, CN II-XII Intact, Normal Cognition, Normal Gait, Normal Reflexes, No Motor/Sensory Deficits Psychiatric: Normal Affect, Normal Mood Skin Exam: Other (pale) Lymphatic: No Adenopathy EKG INTERPRETATION EKG Date: 05/11/18 Time: 17:07 Rhythm: Other (sinus tachycardia) Rate (Beats/Min): 101 Comparison: Change From Previous EKG Course - Vital Signs Last Recorded V/S: Last Vital Signs Temp 99.5 F 05/11/18 16:27 Pulse 108 H 05/11/18 16:27 Resp 20 05/11/18 16:27 BP 130/58 L 05/11/18 16:27 Pulse Ox 92 L 05/11/18 16:27 - Orders/Labs/Meds Orders: Active Orders 24 hr Category Date Time Status EKG Documentation Completion [RC] STAT Care 05/11/18 16:51 Active Peripheral IV Care [RC] . DIRECTED Care 05/11/18 16:51 Active Peripheral IV Insertion Adult [OM.PC] Stat Oth 05/11/18 16:51 Ordered Labs: Laboratory Tests 05/11/18 05/11/18 05/11/18 Range/Units 17:04 17:04 17:04 WBC 12.3 H (5.0-10.0) 10^3/uL RBC 4.71 (4.2-5.4) 10^6/uL Hgb 13.5 (12.0-16.0) g/dL Hct 43.5 (37.0-47.0) % MCV 92.4 (80-100) fL MCH 28.7 (27.0-34.0) pg MCHC 31.0 L (33.0-35.0) g/dL Plt Count 218 (150-450) 10^3/uL Neut % (Auto) 85.9 H (42.2-75.2) % Lymph % (Auto) 6.2 L (20.5-50.1) % [place] % (Auto) 7.7 (2-8) % Eos % (Auto) 0.1 L (1.0-3.0) % Baso % (Auto) 0.1 (0.0-1.0) % Sodium 138 (135-145) mmol/L Potassium 4.0 (3.6-5.0) mmol/L Chloride 95 L (101-111) mmol/L Carbon Dioxide 32.0 H (21.0-31.0) mmol/L Anion Gap 15.0 BUN 19 H (7-18) mg/dL Creatinine 0.7 (0.6-1.3) mg/dL Est Cr Clr Drug Dosing 56.18 mL/min Estimated GFR (MDRD) > 60 BUN/Creatinine Ratio 27.14 Glucose 111 H (74-105) mg/dL Lactic Acid 1.5 (0.5-2.2) mmol/L Calcium 8.9 (8.4-10.2) mg/dl Total Bilirubin 0.8 (0.2-1.0) mg/dL AST 16 (10-42) IU/L ALT 12 (10-60) IU/L Alkaline Phosphatase 71 (42-121) IU/L Troponin I 0.03 H* (0.00-0.02) ng/ml B-Natriuretic Peptide 489 H (0-100) pg/ml Total Protein 7.5 (6.7-8.2) g/dl Albumin 3.6 (3.2-5.5) g/dl Globulin 3.9 Albumin/Globulin Ratio 0.92 Meds: Medications Discontinued Medications Generic Name Dose Route Start Last Admin Trade Name Freq PRN Reason Stop Dose Admin Methylprednisolone Sodium Succinate 125 mg 05/11/18 17:56 05/11/18 18:08 Solu-Medrol IVPUSH 05/11/18 17:57 125 mg ONETIME ONE Administration Sodium Chloride 10 ml 05/11/18 16:51 05/11/18 18:08 Saline Flush FLUSH 10 ml ASDIRECTED PRN Administration Keep Vein Open - Radiology Interpretation Free Text/Narrative:: Chest xray: 1. Right lower lobe density and right pleural effusion. The density is larger as compared to prior chest x-ray. While this may represent recurrent pneumonia mass cannot be ruled out. Further evaluation with chest CT is recommended. 2. COPD. 3. Recurrent pneumonia in the right lower lobe also raises the question of aspiration pneumonia. Thank you for allowing us to participate in the care of your patient. Dictated and Authenticated by: Marv Morales DO 05/11/2018 5:32 PM Central Time ([place] & [place]) See rad report Departure - Departure Time of Disposition: 18:06 Disposition: Home, Self-Care 01 Condition: Fair Clinical Impression: Acute exacerbation of chronic obstructive pulmonary disease - Discharge Information *PRESCRIPTION DRUG MONITORING PROGRAM REVIEWED*: No *COPY OF PRESCRIPTION DRUG MONITORING REPORT IN PATIENT RODNEY: No Instructions: Chronic Obstructive Pulmonary Disease Exacerbation, [id number] , Shortness of Breath, Adult, [id number], Chronic Obstructive Pulmonary Disease, [id number], Upper Respiratory Infection, Adult, [id number] Forms: ED Department Discharge Additional Instructions: RX: Tessalon Perles, Azithromycin, Prednisone Follow up with your primary care facility next week Return to the ER with any further problems - My Orders Last 24 Hours: My Active Orders 05/11/18 16:51 EKG Documentation Completion [RC] STAT Peripheral IV Care [RC] . DIRECTED Peripheral IV Insertion Adult [OM.PC] Stat - Assessment/Plan Last 24 Hours: My Active Orders 05/11/18 16:51 EKG Documentation Completion [RC] STAT Peripheral IV Care [RC] . DIRECTED Peripheral IV Insertion Adult [OM.PC] Stat
== END 2018-05-11 18:51 | disposition home or self-care (01) ==
LOC: DL.ED 15:20
DX: J44.1 Chronic obstructive pulmonary disease with (acute) exacerbation (principal); E03.9 Hypothyroidism, unspecified; F17.210 Nicotine dependence, cigarettes, uncomplicated; Z79.01 Long term (current) use of anticoagulants; Z79.899 Other long term (current) drug therapy
CPT/HCPCS: 36415; 71045; 80053; 83605; 83880; 84484; 85025; 93005; 96374; 99285; J2930; J7050; 93010

== ENCOUNTER 2019-09-07 23:54 | Emergency (ER) | payer MEDICARE, OTHER ==
--- NOTE | 2019-09-08 00:07 | EDM.PDOC ---
ED HPI GENERAL MEDICAL PROBLEM - General Chief Complaint: Respiratory Problem Stated Complaint: AMBULANCE Time Seen by Provider: 09/08/19 00:02 Source of Information: Reports: Patient, Family History Limitations: Reports: No Limitations - History of Present Illness INITIAL COMMENTS - FREE TEXT/NARRATIVE: spouse states pt has copd and been taking nebs and inhaler more recently. tonight nothing helps. so called EMS. pt states feels ok now. - Related Data Allergies Allergy/AdvReac Type Severity Reaction Status Date / Time No Known Allergies Allergy Verified 09/08/19 00:54 Home Meds: Home Meds Fluticasone/Salmeterol [Advair 100-50] 2 puff INH BID PRN 07/28/13 [History] Tiotropium [Spiriva Handihaler] 1 puff INH DAILY 07/28/13 [History] Warfarin [Coumadin] 7.5 mg PO DAILY 07/28/13 [History] Albuterol [Proventil HFA] 2 puff INH Q4H PRN 03/26/14 [History] Levothyroxine [Synthroid] 50 mcg PO ACBRK 03/26/14 [History] Sertraline [Zoloft] 25 mg PO DAILY 03/26/14 [History] Glucosam/Chond/Collagen/Hyalur [Glucosamine Chondroitin] 2 tab PO DAILY [History] Ipratropium/Albuterol Sulfate [Duoneb 0.5 mg-3 mg/3 ml Soln] 1 ampule INH Q4HR PRN 05/01/14 [History] Multivitamin [Multivitamins] 1 tab PO DAILY 05/01/14 [History] Rolaids 2 tab.chew CHEW ASDIRECTED PRN 05/01/14 [History] atorvaSTATin Calcium [Atorvastatin Calcium] 20 mg PO DAILY 12/21/15 [History] Past Medical History HEENT History: Reports: Cataract, Hard of Hearing, Impaired Vision, Other (See Below) Other HEENT History: very early cataracts Cardiovascular History: Reports: High Cholesterol Respiratory History: Reports: Asthma, Bronchitis, Recurrent, COPD, SOB 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: Reports: GERD 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: 3 NVD Musculoskeletal History: Reports: Arthritis, Fracture, Other (See Below) Other Musculoskeletal History: history of fractured wrist (right), fractured clavicle Neurological History: Reports: CVA Psychiatric History: Reports: Anxiety, Depression Endocrine/Metabolic History: Reports: Hypothyroidism Hematologic History: Reports: Anemia, Iron Deficiency Immunologic History: Reports: None Oncologic (Cancer) History: Reports: None - Past Surgical History HEENT Surgical History: Reports: Tonsillectomy GI Surgical History: Reports: Appendectomy Female Surgical History: Reports: D&C Social & Family History - Family History Family Medical History: Noncontributory Respiratory: Reports: TB - Caffeine Use Caffeine Use: Reports: Coffee Other Caffeine Use: 1-2 pots/day - Living Situation & Occupation Living situation: Reports: with Family ED ROS GENERAL - Review of Systems Review Of Systems: Comprehensive ROS is negative, except as noted in HPI. ED EXAM, GENERAL - Physical Exam Exam: See Below Exam Limited By: No Limitations General Appearance: Alert, WD/WN, No Apparent Distress Ears: Hearing Grossly Normal Throat/Mouth: Normal Voice, No Airway Compromise Head: Atraumatic Neck: Non-Tender, Full Range of Motion Respiratory/Chest: No Respiratory Distress, No Accessory Muscle Use, Rhonchi Cardiovascular: Regular Rate, Rhythm GI/Abdominal: Soft, Non-Tender Neurological: Alert, Oriented, Normal Cognition, Normal Gait, No Motor/Sensory Deficits Psychiatric: Normal Affect, Normal Mood Skin Exam: Warm, Dry, Normal Color Lymphatic: No Adenopathy Course - Vital Signs Last Recorded V/S: Last Vital Signs Temp 37.2 C 09/08/19 00:11 Pulse 104 H 09/08/19 00:11 Resp 24 H 09/08/19 00:11 BP 124/86 09/08/19 00:11 Pulse Ox 96 09/08/19 00:11 - Orders/Labs/Meds Orders: Active Orders 24 hr Category Date Time Status Chest 1V Frontal [CR] Urgent Exams 09/08/19 00:06 Taken cefTRIAXone [Rocephin] 1,000 mg Med 09/08/19 01:01 Ordered Sodium Chloride 0.9% [Normal Saline] 100 ml IV ONETIME Labs: Laboratory Tests 09/08/19 09/08/19 Range/Units 00:15 00:15 WBC 12.7 H (5.0-10.0) 10^3/uL RBC 4.39 (4.2-5.4) 10^6/uL Hgb 12.9 (12.0-16.0) g/dL Hct 40.9 (37.0-47.0) % MCV 93.2 (80-100) fL MCH 29.4 (27.0-34.0) pg MCHC 31.5 L (33.0-35.0) g/dL Plt Count 216 (150-450) 10^3/uL Neut % (Auto) 89.4 H (42.2-75.2) % Lymph % (Auto) 4.7 L (20.5-50.1) % [place] % (Auto) 5.5 (2-8) % Eos % (Auto) 0.2 L (1.0-3.0) % Baso % (Auto) 0.2 (0.0-1.0) % Sodium 137 (135-145) mmol/L Potassium 4.3 (3.6-5.0) mmol/L Chloride 99 L (101-111) mmol/L Carbon Dioxide 27.0 (21.0-31.0) mmol/L Anion Gap 15.3 BUN 12 (7-18) mg/dL Creatinine 0.8 (0.6-1.3) mg/dL Est Cr Clr Drug Dosing 41.12 mL/min Estimated GFR (MDRD) > 60 BUN/Creatinine Ratio 15.00 Glucose 102 (74-105) mg/dL Calcium 8.9 (8.4-10.2) mg/dl Total Bilirubin 1.0 (0.2-1.0) mg/dL AST 19 (10-42) IU/L ALT 14 (10-60) IU/L Alkaline Phosphatase 70 (42-121) IU/L Troponin I < 0.02 (0.00-0.02) ng/ml Total Protein 7.5 (6.7-8.2) g/dl Albumin 4.1 (3.2-5.5) g/dl Globulin 3.4 Albumin/Globulin Ratio 1.21 - Re-Assessments/Exams Free Text/Narrative Re-Assessment/Exam: 09/08/19 01:02 results discussed with pt & spouse Departure - Departure Time of Disposition: 01:02 Disposition: Home, Self-Care 01 Condition: Good Clinical Impression: Acute exacerbation of chronic obstructive pulmonary disease - Discharge Information Forms: ED Department Discharge Additional Instructions: 1) rest 2) continue neb treatments 3) follow up at clinic rx given; [id number] Sepsis Event Note - Focused Exam Vital Signs: Vital Signs Temp Pulse Resp BP Pulse Ox 09/08/19 00:11 37.2 C 104 H 24 H 124/86 96 Date Exam was Performed: 09/08/19 Time Exam was Performed: 01:02 - My Orders Last 24 Hours: My Active Orders 09/08/19 00:06 Chest 1V Frontal [CR] Urgent 09/08/19 01:01 cefTRIAXone [Rocephin] 1,000 mg Sodium Chloride 0.9% [Normal Saline] 100 ml IV ONETIME - Assessment/Plan Last 24 Hours: My Active Orders 09/08/19 00:06 Chest 1V Frontal [CR] Urgent 09/08/19 01:01 cefTRIAXone [Rocephin] 1,000 mg Sodium Chloride 0.9% [Normal Saline] 100 ml IV ONETIME
[2019-09-08 00:26] VITALS: BP 124/86; PULSE 104
[2019-09-08 00:45] LABS: ANION GAP 15.3; CHLORIDE,CL 99 mmol/L (101-111); SODIUM,NA 137 mmol/L (135-145)
== END 2019-09-08 02:00 | disposition home or self-care (01) ==
LOC: DL.ED 23:54
DX: J44.1 Chronic obstructive pulmonary disease with (acute) exacerbation (principal); E03.9 Hypothyroidism, unspecified; F41.9 Anxiety disorder, unspecified; F32.9 Major depressive disorder, single episode, unspecified; Z79.899 Other long term (current) drug therapy; Z86.73 Personal history of transient ischemic attack (TIA), and cerebral infarction without residual deficits; Z98.890 Other specified postprocedural states; Z90.49 Acquired absence of other specified parts of digestive tract; Z79.01 Long term (current) use of anticoagulants
CPT/HCPCS: 36415; 71045; 80053; 84484; 85025; 96360; 99284; J0696; J7050

== ENCOUNTER 2019-10-09 12:33 | Inpatient (IN) | payer MEDICARE, OTHER ==
[2019-10-09] MEDS: Sodium Chloride 0.9% 10 ML Syringe FLUSH PRN ×2 (12:40→18:59)
[2019-10-09] MEDS ORDERED: Albuterol/Ipratropium 3.0-0.5 MG/3 ML Neb Soln NEB ONE ×2 (13:01→14:42)
--- NOTE | 2019-10-09 13:08 | EDM.PDOC ---
<Dimitry Lizarraga - Last Filed: 10/09/19 13:21> ED HPI GENERAL MEDICAL PROBLEM - General Chief Complaint: Respiratory Problem Stated Complaint: UNKNOWN-COMING FROM CLINIC Time Seen by Provider: 10/09/19 13:02 Source of Information: Reports: Patient, Family (), RN, RN Notes Reviewed History Limitations: Reports: Altered Mental Status, Respiratory Distress - History of Present Illness INITIAL COMMENTS - FREE TEXT/NARRATIVE: Patient brought from [facility] to ED due to new onset of hallucination, Sp02 of 3L 88 %, and SOB. Upon arrival knows person, place and time. states she has had decreased energy, not sleeping at night and hallucinating for the past 2 or 3 nights. states "she is always hot" but no fever. She is a pack per day smoker. Denies any headaches, fever/chills, or any other symptoms at this time. Duration: Chronic Location: Reports: Chest Severity: Moderate Improves with: Reports: Other (oxygen) Associated Symptoms: Reports: Cough, Loss of Appetite, Shortness of Breath, Weakness. Denies: Fever/Chills, Headaches, Nausea/Vomiting, Syncope - Related Data Allergies Allergy/AdvReac Type Severity Reaction Status Date / Time No Known Allergies Allergy Verified 10/09/19 12:45 Home Meds: Home Meds Fluticasone/Salmeterol [Advair 100-50] 2 puff INH BID PRN 07/28/13 [History] Tiotropium [Spiriva Handihaler] 1 puff INH DAILY 07/28/13 [History] Warfarin [Coumadin] 7.5 mg PO DAILY 07/28/13 [History] Albuterol [Proventil HFA] 2 puff INH Q4H PRN 03/26/14 [History] Levothyroxine [Synthroid] 50 mcg PO ACBRK 03/26/14 [History] Sertraline [Zoloft] 25 mg PO DAILY 03/26/14 [History] Glucosam/Chond/Collagen/Hyalur [Glucosamine Chondroitin] 2 tab PO DAILY [History] Ipratropium/Albuterol Sulfate [Duoneb 0.5 mg-3 mg/3 ml Soln] 1 ampule INH Q4HR PRN 05/01/14 [History] Multivitamin [Multivitamins] 1 tab PO DAILY 05/01/14 [History] Rolaids 2 tab.chew CHEW ASDIRECTED PRN 05/01/14 [History] atorvaSTATin Calcium [Atorvastatin Calcium] 20 mg PO DAILY 12/21/15 [History] Past Medical History HEENT History: Reports: Cataract, Hard of Hearing, Impaired Vision, Other (See Below) Other HEENT History: very early cataracts Cardiovascular History: Reports: High Cholesterol Respiratory History: Reports: Asthma, Bronchitis, Recurrent, COPD, SOB 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: Reports: GERD THIRD COOK History: Reports: Other THIRD COOK History: 3 NVD Musculoskeletal History: Reports: Arthritis, Fracture, Other (See Below) Other Musculoskeletal History: history of fractured wrist (right), fractured clavicle Neurological History: Reports: CVA Psychiatric History: Reports: Anxiety, Depression Endocrine/Metabolic History: Reports: Hypothyroidism Hematologic History: Reports: Anemia, Iron Deficiency Immunologic History: Reports: None Oncologic (Cancer) History: Reports: None - Past Surgical History HEENT Surgical History: Reports: Tonsillectomy GI Surgical History: Reports: Appendectomy Female Surgical History: Reports: D&C Social & Family History - Family History Family Medical History: Noncontributory Respiratory: Reports: TB - Caffeine Use Caffeine Use: Reports: Coffee Other Caffeine Use: 1-2 pots/day - Living Situation & Occupation Living situation: Reports: with Family ED ROS GENERAL - Review of Systems Review Of Systems: See Below Constitutional: Reports: Fatigue, Decreased Appetite, Weight Loss. Denies: Fever, Chills HEENT: Reports: No Symptoms Respiratory: Reports: Shortness of Breath, Wheezing, Cough Cardiovascular: Reports: Dyspnea on Exertion. Denies: Chest Pain, Edema, Lightheadedness, Palpitations, Syncope Endocrine: Reports: No Symptoms GI/Abdominal: Reports: Decreased Appetite. Denies: Abdominal Pain, Constipation , Diarrhea, Nausea, Vomiting : Reports: No Symptoms Musculoskeletal: Reports: No Symptoms Skin: Reports: No Symptoms Neurological: Reports: Confusion, Weakness. Denies: Dizziness, Headache, Seizure, Syncope, Trouble Speaking Psychiatric: Reports: Agitation, Cravings (nicotine), Hallucinations Hematologic/Lymphatic: Reports: No Symptoms Immunologic: Reports: No Symptoms ED EXAM, GENERAL - Physical Exam Exam: See Below Exam Limited By: Altered Mental Status General Appearance: Alert, Anxious, Mild Distress Nose: Normal Inspection, Normal Mucosa, No Blood Throat/Mouth: Normal Inspection, Normal Lips, Normal Teeth, Normal Gums, Normal Oropharynx, Normal Voice, No Airway Compromise Head: Atraumatic, Normocephalic Neck: Normal Inspection, Supple, Non-Tender, Full Range of Motion Respiratory/Chest: Decreased Breath Sounds, Crackles, Wheezing Cardiovascular: Normal Peripheral Pulses, Regular Rate, Rhythm, No Edema, No Gallop, No JVD, No Murmur, No Rub GI/Abdominal: Normal Bowel Sounds, Soft, Non-Tender, No Organomegaly, No Distention, No Abnormal Bruit, No Mass (Female) Exam: Deferred Rectal (Female) Exam: Deferred Extremities: Normal Inspection, Normal Range of Motion, Non-Tender, Normal Capillary Refill, No Pedal Edema Neurological: Alert, Oriented, CN II-XII Intact, Normal Cognition, Normal Gait, Normal Reflexes, No Motor/Sensory Deficits Psychiatric: Normal Affect, Normal Mood Skin Exam: Warm, Dry, Intact, Normal Color, No Rash Lymphatic: No Adenopathy Course - Vital Signs Last Recorded V/S: Last Vital Signs Temp 99.2 F 10/09/19 12:35 Pulse 102 H 10/09/19 13:27 Resp 23 H 10/09/19 12:35 BP 160/87 H 10/09/19 12:35 Pulse Ox 84 L 10/09/19 12:35 - Orders/Labs/Meds Orders: Active Orders 24 hr Category Date Time Status EKG 12 Lead [EKG Documentation Completion] [RC] STAT Care 10/09/19 13:00 Active Peripheral IV Care [RC] . DIRECTED Care 10/09/19 13:01 Active RT Aerosol Therapy [RC] ASDIRECTED Care 10/09/19 13:02 Active RT Aerosol Therapy [RC] ASDIRECTED Care 10/09/19 14:43 Active Sodium Chloride 0.9% [Saline Flush] Med 10/09/19 13:01 Active 10 ml FLUSH ASDIRECTED PRN Peripheral IV Insertion Adult [OM.PC] Stat Oth 10/09/19 13:00 Ordered Medication Orders Sodium Chloride (Saline Flush) 10 ml FLUSH ASDIRECTED PRN PRN Reason: Keep Vein Open Last Admin: 10/09/19 12:40 Dose: 10 ml Labs: Laboratory Tests 10/09/19 10/09/19 10/09/19 Range/Units 13:25 13:25 13:25 WBC 7.9 (5.0-10.0) 10^3/uL RBC 4.16 L (4.2-5.4) 10^6/uL Hgb 12.1 (12.0-16.0) g/dL Hct 38.9 (37.0-47.0) % MCV 93.5 (80-100) fL MCH 29.1 (27.0-34.0) pg MCHC 31.1 L (33.0-35.0) g/dL Plt Count 168 (150-450) 10^3/uL Neut % (Auto) 87.1 H (42.2-75.2) % Lymph % (Auto) 5.4 L (20.5-50.1) % [place] % (Auto) 7.2 (2-8) % Eos % (Auto) 0.0 L (1.0-3.0) % Baso % (Auto) 0.3 (0.0-1.0) % PT 33.7 H D (9.0-12.0) SEC INR 3.5 H (0.9-1.2) Sodium 139 (135-145) mmol/L Potassium 3.3 L (3.6-5.0) mmol/L Chloride 95 L (101-111) mmol/L Carbon Dioxide 35.0 H (21.0-31.0) mmol/L Anion Gap 12.3 BUN 16 (7-18) mg/dL Creatinine 0.5 L (0.6-1.3) mg/dL Est Cr Clr Drug Dosing 72.40 mL/min Estimated GFR (MDRD) > 60 BUN/Creatinine Ratio 32.00 Glucose 103 (74-105) mg/dL Lactic Acid (0.5-2.0) mmol/L Calcium 8.9 (8.4-10.2) mg/dl Total Bilirubin 0.6 (0.2-1.0) mg/dL AST 23 (10-42) IU/L ALT 20 (10-60) IU/L Alkaline Phosphatase 55 (42-121) IU/L Ammonia (11-35) umol/L B-Natriuretic Peptide 107 H (0-100) pg/ml Total Protein 7.0 (6.7-8.2) g/dl Albumin 3.7 (3.2-5.5) g/dl Globulin 3.3 Albumin/Globulin Ratio 1.12 TSH, Ultra Sensitive (0.45-5.33) uIu/mL Urine Color (YELLOW) Urine Appearance (CLEAR) Urine pH (5.0-9.0) Ur Specific [place] (1.005-1.030) Urine Protein (NEGATIVE) Urine Glucose (UA) (NEGATIVE) Urine Ketones (NEGATIVE) Urine Occult Blood (NEGATIVE) Urine Nitrite (NEGATIVE) Urine Bilirubin (NEGATIVE) Urine Urobilinogen (0.2-1.0) mg/dL Ur Leukocyte Esterase (NEGATIVE) Urine RBC /HPF Urine WBC (0-5/HPF) /HPF Ur Epithelial Cells (NOT SEEN) /HPF Amorphous Sediment (NOT SEEN) /HPF Urine Bacteria (0-FEW/HPF) /HPF Urine Mucus (NOT SEEN) /LPF Urine Opiates Screen (NEGATIVE) Ur Oxycodone Screen (NEGATIVE) Urine Methadone Screen (NEGATIVE) Ur Barbiturates Screen (NEGATIVE) U Tricyclic Antidepress (NEGATIVE) Ur Phencyclidine Scrn (NEGATIVE) Ur Amphetamine Screen (NEGATIVE) U Methamphetamines Scrn (NEGATIVE) Urine MDMA Screen (NEGATIVE) U Benzodiazepines Scrn (NEGATIVE) Urine Cocaine Screen (NEGATIVE) U Marijuana (THC) Screen (NEGATIVE) Ethyl Alcohol < 5 mg/dL 10/09/19 10/09/19 10/09/19 Range/Units 13:25 13:25 13:25 WBC (5.0-10.0) 10^3/uL RBC (4.2-5.4) 10^6/uL Hgb (12.0-16.0) g/dL Hct (37.0-47.0) % MCV (80-100) fL MCH (27.0-34.0) pg MCHC (33.0-35.0) g/dL Plt Count (150-450) 10^3/uL Neut % (Auto) (42.2-75.2) % Lymph % (Auto) (20.5-50.1) % [place] % (Auto) (2-8) % Eos % (Auto) (1.0-3.0) % Baso % (Auto) (0.0-1.0) % PT (9.0-12.0) SEC INR (0.9-1.2) Sodium (135-145) mmol/L Potassium (3.6-5.0) mmol/L Chloride (101-111) mmol/L Carbon Dioxide (21.0-31.0) mmol/L Anion Gap BUN (7-18) mg/dL Creatinine (0.6-1.3) mg/dL Est Cr Clr Drug Dosing mL/min Estimated GFR (MDRD) BUN/Creatinine Ratio Glucose (74-105) mg/dL Lactic Acid 1.1 (0.5-2.0) mmol/L Calcium (8.4-10.2) mg/dl Total Bilirubin (0.2-1.0) mg/dL AST (10-42) IU/L ALT (10-60) IU/L Alkaline Phosphatase (42-121) IU/L Ammonia 22 (11-35) umol/L B-Natriuretic Peptide (0-100) pg/ml Total Protein (6.7-8.2) g/dl Albumin (3.2-5.5) g/dl Globulin Albumin/Globulin Ratio TSH, Ultra Sensitive 1.70 (0.45-5.33) uIu/mL Urine Color (YELLOW) Urine Appearance (CLEAR) Urine pH (5.0-9.0) Ur Specific [place] (1.005-1.030) Urine Protein (NEGATIVE) Urine Glucose (UA) (NEGATIVE) Urine Ketones (NEGATIVE) Urine Occult Blood (NEGATIVE) Urine Nitrite (NEGATIVE) Urine Bilirubin (NEGATIVE) Urine Urobilinogen (0.2-1.0) mg/dL Ur Leukocyte Esterase (NEGATIVE) Urine RBC /HPF Urine WBC (0-5/HPF) /HPF Ur Epithelial Cells (NOT SEEN) /HPF Amorphous Sediment (NOT SEEN) /HPF Urine Bacteria (0-FEW/HPF) /HPF Urine Mucus (NOT SEEN) /LPF Urine Opiates Screen (NEGATIVE) Ur Oxycodone Screen (NEGATIVE) Urine Methadone Screen (NEGATIVE) Ur Barbiturates Screen (NEGATIVE) U Tricyclic Antidepress (NEGATIVE) Ur Phencyclidine Scrn (NEGATIVE) Ur Amphetamine Screen (NEGATIVE) U Methamphetamines Scrn (NEGATIVE) Urine MDMA Screen (NEGATIVE) U Benzodiazepines Scrn (NEGATIVE) Urine Cocaine Screen (NEGATIVE) U Marijuana (THC) Screen (NEGATIVE) Ethyl Alcohol mg/dL 10/09/19 10/09/19 Range/Units 14:21 14:21 WBC (5.0-10.0) 10^3/uL RBC (4.2-5.4) 10^6/uL Hgb (12.0-16.0) g/dL Hct (37.0-47.0) % MCV (80-100) fL MCH (27.0-34.0) pg MCHC (33.0-35.0) g/dL Plt Count (150-450) 10^3/uL Neut % (Auto) (42.2-75.2) % Lymph % (Auto) (20.5-50.1) % [place] % (Auto) (2-8) % Eos % (Auto) (1.0-3.0) % Baso % (Auto) (0.0-1.0) % PT (9.0-12.0) SEC INR (0.9-1.2) Sodium (135-145) mmol/L Potassium (3.6-5.0) mmol/L Chloride (101-111) mmol/L Carbon Dioxide (21.0-31.0) mmol/L Anion Gap BUN (7-18) mg/dL Creatinine (0.6-1.3) mg/dL Est Cr Clr Drug Dosing mL/min Estimated GFR (MDRD) BUN/Creatinine Ratio Glucose (74-105) mg/dL Lactic Acid (0.5-2.0) mmol/L Calcium (8.4-10.2) mg/dl Total Bilirubin (0.2-1.0) mg/dL AST (10-42) IU/L ALT (10-60) IU/L Alkaline Phosphatase (42-121) IU/L Ammonia (11-35) umol/L B-Natriuretic Peptide (0-100) pg/ml Total Protein (6.7-8.2) g/dl Albumin (3.2-5.5) g/dl Globulin Albumin/Globulin Ratio TSH, Ultra Sensitive (0.45-5.33) uIu/mL Urine Color Yellow (YELLOW) Urine Appearance Slightly cloudy (CLEAR) Urine pH 7.0 (5.0-9.0) Ur Specific [place] 1.025 (1.005-1.030) Urine Protein Negative (NEGATIVE) Urine Glucose (UA) Negative (NEGATIVE) Urine Ketones Negative (NEGATIVE) Urine Occult Blood Trace-lysed H (NEGATIVE) Urine Nitrite Negative (NEGATIVE) Urine Bilirubin Negative (NEGATIVE) Urine Urobilinogen 0.2 (0.2-1.0) mg/dL Ur Leukocyte Esterase Negative (NEGATIVE) Urine RBC 0-5 /HPF Urine WBC 0-5 (0-5/HPF) /HPF Ur Epithelial Cells Occasional (NOT SEEN) /HPF Amorphous Sediment Many H (NOT SEEN) /HPF Urine Bacteria Few (0-FEW/HPF) /HPF Urine Mucus Rare (NOT SEEN) /LPF Urine Opiates Screen Negative (NEGATIVE) Ur Oxycodone Screen Negative (NEGATIVE) Urine Methadone Screen Negative (NEGATIVE) Ur Barbiturates Screen Negative (NEGATIVE) U Tricyclic Antidepress Negative (NEGATIVE) Ur Phencyclidine Scrn Negative (NEGATIVE) Ur Amphetamine Screen Negative (NEGATIVE) U Methamphetamines Scrn Negative (NEGATIVE) Urine MDMA Screen Negative (NEGATIVE) U Benzodiazepines Scrn Negative (NEGATIVE) Urine Cocaine Screen Negative (NEGATIVE) U Marijuana (THC) Screen Negative (NEGATIVE) Ethyl Alcohol mg/dL Meds: Medications Generic Name Dose Route Start Last Admin Trade Name Freq PRN Reason Stop Dose Admin Sodium Chloride 10 ml 10/09/19 13:01 10/09/19 12:40 Saline Flush FLUSH 10 ml ASDIRECTED PRN Administration Keep Vein Open Discontinued Medications Generic Name Dose Route Start Last Admin Trade Name Freq PRN Reason Stop Dose Admin Albuterol/Ipratropium 3 ml 10/09/19 13:01 10/09/19 13:26 Duoneb 3.0-0.5 Mg/3 Ml NEB 10/09/19 13:02 3 ml ONETIME ONE Administration Albuterol/Ipratropium 3 ml 10/09/19 14:42 Duoneb 3.0-0.5 Mg/3 Ml NEB 10/09/19 14:43 ONETIME ONE Methylprednisolone Sodium Succinate 125 mg 10/09/19 14:42 Solu-Medrol IVPUSH 10/09/19 14:43 ONETIME ONE Departure - Departure Disposition: Admitted As Inpatient 68 Clinical Impression: Acute exacerbation of chronic obstructive airways disease, Chronic dementia with behavioral disturbance Acute on chronic respiratory failure Qualifiers: Respiratory failure complication: hypoxia Qualified Code(s): J96.21 - Acute and chronic respiratory failure with hypoxia - Discharge Information Forms: ED Department Discharge Sepsis Event Note - Focused Exam Vital Signs: Vital Signs Temp Pulse Resp BP Pulse Ox 10/09/19 13:27 102 H 10/09/19 12:35 99.2 F 110 H 23 H 160/87 H 84 L Date Exam was Performed: 10/09/19 Time Exam was Performed: 13:21 - My Orders Last 24 Hours: My Active Orders 10/09/19 13:00 EKG 12 Lead [EKG Documentation Completion] [RC] STAT Peripheral IV Insertion Adult [OM.PC] Stat 10/09/19 13:01 Peripheral IV Care [RC] . DIRECTED Sodium Chloride 0.9% [Saline Flush] 10 ml FLUSH ASDIRECTED PRN 10/09/19 13:02 RT Aerosol Therapy [RC] ASDIRECTED 10/09/19 14:43 RT Aerosol Therapy [RC] ASDIRECTED - Assessment/Plan Last 24 Hours: My Active Orders 10/09/19 13:00 EKG 12 Lead [EKG Documentation Completion] [RC] STAT Peripheral IV Insertion Adult [OM.PC] Stat 10/09/19 13:01 Peripheral IV Care [RC] . DIRECTED Sodium Chloride 0.9% [Saline Flush] 10 ml FLUSH ASDIRECTED PRN 10/09/19 13:02 RT Aerosol Therapy [RC] ASDIRECTED 10/09/19 14:43 RT Aerosol Therapy [RC] ASDIRECTED <Aguila Gregory - Last Filed: 10/09/19 14:57> EKG INTERPRETATION EKG Date: 10/09/19 Time: 13:14 Rhythm: Other (Sinus Tach) Rate (Beats/Min): 101 [place]: RAD-Right [place] Deviation (borderline) P-Wave: Present QRS: Other (LVH) ST-T: Normal QT: Normal Comparison: No Change Course - Orders/Labs/Meds Labs: Laboratory Tests 10/09/19 10/09/19 10/09/19 Range/Units 13:25 13:25 13:25 WBC 7.9 (5.0-10.0) 10^3/uL RBC 4.16 L (4.2-5.4) 10^6/uL Hgb 12.1 (12.0-16.0) g/dL Hct 38.9 (37.0-47.0) % MCV 93.5 (80-100) fL MCH 29.1 (27.0-34.0) pg MCHC 31.1 L (33.0-35.0) g/dL Plt Count 168 (150-450) 10^3/uL Neut % (Auto) 87.1 H (42.2-75.2) % Lymph % (Auto) 5.4 L (20.5-50.1) % [place] % (Auto) 7.2 (2-8) % Eos % (Auto) 0.0 L (1.0-3.0) % Baso % (Auto) 0.3 (0.0-1.0) % PT 33.7 H D (9.0-12.0) SEC INR 3.5 H (0.9-1.2) Sodium 139 (135-145) mmol/L Potassium 3.3 L (3.6-5.0) mmol/L Chloride 95 L (101-111) mmol/L Carbon Dioxide 35.0 H (21.0-31.0) mmol/L Anion Gap 12.3 BUN 16 (7-18) mg/dL Creatinine 0.5 L (0.6-1.3) mg/dL Est Cr Clr Drug Dosing 72.40 mL/min Estimated GFR (MDRD) > 60 BUN/Creatinine Ratio 32.00 Glucose 103 (74-105) mg/dL Lactic Acid (0.5-2.0) mmol/L Calcium 8.9 (8.4-10.2) mg/dl Total Bilirubin 0.6 (0.2-1.0) mg/dL AST 23 (10-42) IU/L ALT 20 (10-60) IU/L Alkaline Phosphatase 55 (42-121) IU/L Ammonia (11-35) umol/L B-Natriuretic Peptide 107 H (0-100) pg/ml Total Protein 7.0 (6.7-8.2) g/dl Albumin 3.7 (3.2-5.5) g/dl Globulin 3.3 Albumin/Globulin Ratio 1.12 TSH, Ultra Sensitive (0.45-5.33) uIu/mL Urine Color (YELLOW) Urine Appearance (CLEAR) Urine pH (5.0-9.0) Ur Specific [place] (1.005-1.030) Urine Protein (NEGATIVE) Urine Glucose (UA) (NEGATIVE) Urine Ketones (NEGATIVE) Urine Occult Blood (NEGATIVE) Urine Nitrite (NEGATIVE) Urine Bilirubin (NEGATIVE) Urine Urobilinogen (0.2-1.0) mg/dL Ur Leukocyte Esterase (NEGATIVE) Urine RBC /HPF Urine WBC (0-5/HPF) /HPF Ur Epithelial Cells (NOT SEEN) /HPF Amorphous Sediment (NOT SEEN) /HPF Urine Bacteria (0-FEW/HPF) /HPF Urine Mucus (NOT SEEN) /LPF Urine Opiates Screen (NEGATIVE) Ur Oxycodone Screen (NEGATIVE) Urine Methadone Screen (NEGATIVE) Ur Barbiturates Screen (NEGATIVE) U Tricyclic Antidepress (NEGATIVE) Ur Phencyclidine Scrn (NEGATIVE) Ur Amphetamine Screen (NEGATIVE) U Methamphetamines Scrn (NEGATIVE) Urine MDMA Screen (NEGATIVE) U Benzodiazepines Scrn (NEGATIVE) Urine Cocaine Screen (NEGATIVE) U Marijuana (THC) Screen (NEGATIVE) Ethyl Alcohol < 5 mg/dL 10/09/19 10/09/19 10/09/19 Range/Units 13:25 13:25 13:25 WBC (5.0-10.0) 10^3/uL RBC (4.2-5.4) 10^6/uL Hgb (12.0-16.0) g/dL Hct (37.0-47.0) % MCV (80-100) fL MCH (27.0-34.0) pg MCHC (33.0-35.0) g/dL Plt Count (150-450) 10^3/uL Neut % (Auto) (42.2-75.2) % Lymph % (Auto) (20.5-50.1) % [place] % (Auto) (2-8) % Eos % (Auto) (1.0-3.0) % Baso % (Auto) (0.0-1.0) % PT (9.0-12.0) SEC INR (0.9-1.2) Sodium (135-145) mmol/L Potassium (3.6-5.0) mmol/L Chloride (101-111) mmol/L Carbon Dioxide (21.0-31.0) mmol/L Anion Gap BUN (7-18) mg/dL Creatinine (0.6-1.3) mg/dL Est Cr Clr Drug Dosing mL/min Estimated GFR (MDRD) BUN/Creatinine Ratio Glucose (74-105) mg/dL Lactic Acid 1.1 (0.5-2.0) mmol/L Calcium (8.4-10.2) mg/dl Total Bilirubin (0.2-1.0) mg/dL AST (10-42) IU/L ALT (10-60) IU/L Alkaline Phosphatase (42-121) IU/L Ammonia 22 (11-35) umol/L B-Natriuretic Peptide (0-100) pg/ml Total Protein (6.7-8.2) g/dl Albumin (3.2-5.5) g/dl Globulin Albumin/Globulin Ratio TSH, Ultra Sensitive 1.70 (0.45-5.33) uIu/mL Urine Color (YELLOW) Urine Appearance (CLEAR) Urine pH (5.0-9.0) Ur Specific [place] (1.005-1.030) Urine Protein (NEGATIVE) Urine Glucose (UA) (NEGATIVE) Urine Ketones (NEGATIVE) Urine Occult Blood (NEGATIVE) Urine Nitrite (NEGATIVE) Urine Bilirubin (NEGATIVE) Urine Urobilinogen (0.2-1.0) mg/dL Ur Leukocyte Esterase (NEGATIVE) Urine RBC /HPF Urine WBC (0-5/HPF) /HPF Ur Epithelial Cells (NOT SEEN) /HPF Amorphous Sediment (NOT SEEN) /HPF Urine Bacteria (0-FEW/HPF) /HPF Urine Mucus (NOT SEEN) /LPF Urine Opiates Screen (NEGATIVE) Ur Oxycodone Screen (NEGATIVE) Urine Methadone Screen (NEGATIVE) Ur Barbiturates Screen (NEGATIVE) U Tricyclic Antidepress (NEGATIVE) Ur Phencyclidine Scrn (NEGATIVE) Ur Amphetamine Screen (NEGATIVE) U Methamphetamines Scrn (NEGATIVE) Urine MDMA Screen (NEGATIVE) U Benzodiazepines Scrn (NEGATIVE) Urine Cocaine Screen (NEGATIVE) U Marijuana (THC) Screen (NEGATIVE) Ethyl Alcohol mg/dL 10/09/19 10/09/19 Range/Units 14:21 14:21 WBC (5.0-10.0) 10^3/uL RBC (4.2-5.4) 10^6/uL Hgb (12.0-16.0) g/dL Hct (37.0-47.0) % MCV (80-100) fL MCH (27.0-34.0) pg MCHC (33.0-35.0) g/dL Plt Count (150-450) 10^3/uL Neut % (Auto) (42.2-75.2) % Lymph % (Auto) (20.5-50.1) % [place] % (Auto) (2-8) % Eos % (Auto) (1.0-3.0) % Baso % (Auto) (0.0-1.0) % PT (9.0-12.0) SEC INR (0.9-1.2) Sodium (135-145) mmol/L Potassium (3.6-5.0) mmol/L Chloride (101-111) mmol/L Carbon Dioxide (21.0-31.0) mmol/L Anion Gap BUN (7-18) mg/dL Creatinine (0.6-1.3) mg/dL Est Cr Clr Drug Dosing mL/min Estimated GFR (MDRD) BUN/Creatinine Ratio Glucose (74-105) mg/dL Lactic Acid (0.5-2.0) mmol/L Calcium (8.4-10.2) mg/dl Total Bilirubin (0.2-1.0) mg/dL AST (10-42) IU/L ALT (10-60) IU/L Alkaline Phosphatase (42-121) IU/L Ammonia (11-35) umol/L B-Natriuretic Peptide (0-100) pg/ml Total Protein (6.7-8.2) g/dl Albumin (3.2-5.5) g/dl Globulin Albumin/Globulin Ratio TSH, Ultra Sensitive (0.45-5.33) uIu/mL Urine Color Yellow (YELLOW) Urine Appearance Slightly cloudy (CLEAR) Urine pH 7.0 (5.0-9.0) Ur Specific [place] 1.025 (1.005-1.030) Urine Protein Negative (NEGATIVE) Urine Glucose (UA) Negative (NEGATIVE) Urine Ketones Negative (NEGATIVE) Urine Occult Blood Trace-lysed H (NEGATIVE) Urine Nitrite Negative (NEGATIVE) Urine Bilirubin Negative (NEGATIVE) Urine Urobilinogen 0.2 (0.2-1.0) mg/dL Ur Leukocyte Esterase Negative (NEGATIVE) Urine RBC 0-5 /HPF Urine WBC 0-5 (0-5/HPF) /HPF Ur Epithelial Cells Occasional (NOT SEEN) /HPF Amorphous Sediment Many H (NOT SEEN) /HPF Urine Bacteria Few (0-FEW/HPF) /HPF Urine Mucus Rare (NOT SEEN) /LPF Urine Opiates Screen Negative (NEGATIVE) Ur Oxycodone Screen Negative (NEGATIVE) Urine Methadone Screen Negative (NEGATIVE) Ur Barbiturates Screen Negative (NEGATIVE) U Tricyclic Antidepress Negative (NEGATIVE) Ur Phencyclidine Scrn Negative (NEGATIVE) Ur Amphetamine Screen Negative (NEGATIVE) U Methamphetamines Scrn Negative (NEGATIVE) Urine MDMA Screen Negative (NEGATIVE) U Benzodiazepines Scrn Negative (NEGATIVE) Urine Cocaine Screen Negative (NEGATIVE) U Marijuana (THC) Screen Negative (NEGATIVE) Ethyl Alcohol mg/dL - Radiology Interpretation Free Text/Narrative:: CXR: subtle patchy nonconsolidated density in the right lung base. Faint left lung base consolidation. COPD w/large lung volumes. Subtle Rt hilar density. Radiologist recommends CT chest. CT Chest: COPD changes, with scarring. Possible aspiration. No current evidence of malignancy or heart failure per Rad. report. CT Head: no acute changes compared to Head CT from February 2019 per Rad. report, but chronic multi-infarct changes, stable. Departure - Departure Time of Disposition: 14:53 (admitted to Dr. Ennis) Condition: Fair, Serious - Discharge Information *PRESCRIPTION DRUG MONITORING PROGRAM REVIEWED*: Not Applicable *COPY OF PRESCRIPTION DRUG MONITORING REPORT IN PATIENT RODNEY: Not Applicable Sepsis Event Note - Focused Exam Date Exam was Performed: 10/09/19 Time Exam was Performed: 14:57
--- NOTE | 2019-10-09 13:43 | CR ---
EXAMINATION: Chest 1V Frontal SEX: Female AGE: 79 years CLINICAL HISTORY: 79-year-old female SMOKER with clinical "wheezing", hypoxia, confusion and productive cough. INTERPRETATION: 1. Chronic peribronchial "cuffing" and arise air trapping characteristic of reactive airway disease i.e. bronchitis. 2. Normal cardiac silhouette (external [employer] leads) without new pulmonary vascular congestion, cephalization of flow, alveolar edema or dependent pleural fluid accumulation when compared directly to 08 September 2019 film. 3.*Subtle asymmetric patchy nonconsolidated density in the right lung base (aspiration?). Bronchiectasis or developing lobar pneumonia suspect. Suggestion second focal lobar consolidation (atelectasis or infiltrate) left lung apex.. 4. Right hilar masslike fullness may reflect patient rotation but cannot exclude underlying neoplasm with high risk patient. 5. No other lung mass or lobar consolidation. CONCLUSION: Patchy infiltrates (see above) and subtle right hilar masslike fullness.
[2019-10-09 13:54] LABS: ANION GAP 12.3; CHLORIDE,CL 95 mmol/L (101-111); SODIUM,NA 139 mmol/L (135-145)
--- NOTE | 2019-10-09 14:30 | CT ---
EXAMINATION: Chest wo Cont SEX: Female AGE: 79 years CLINICAL HISTORY: 79-year-old female smoker with hypoxia, cough, and abn. chest x-ray ("multilobar infiltrates and possible hilar mass"). Scan technique: Volume acquisition of data emergency unenhanced CT scan of the chest (bony thorax, lungs and mediastinum) obtained with patient lying supine on the Siemens multislice scanner [place], [place]. All data archived in the PACS system for storage, reformatting axial/sagittal/coronal planes and study (lung/mediastinal windows). Interpretation: Abnormal. 1. Symmetrically prominent proximal pulmonary artery segments (pulmonary artery hypertension); generalized hyperinflation of the lung dueñas with associated cystic/bullous emphysematous lesions; bilateral peribronchial "cuffing" characteristic of reactive airway disease; and scattered patchy peripheral pleural-based atelectasis/infiltrates throughout both lung dueñas. Infarcts? COPD. 2. Normal cardiac silhouette. No coronary artery calcifications or pericardial effusions. No pulmonary vascular congestion, alveolar edema or dependent pleural effusions i.e. no current signs of CHF. 3. No suspicious lung nodule or mass lesion. No signs of significant hilar/mediastinal lymphadenopathy (unenhanced exam). 4. No other focal lobar consolidation. 5. Calcifications tracing normal caliber thoracic aorta. No aneurysm or dissection (unenhanced exam) CONCLUSION: Signs of COPD and pleural parenchymal scarring. Possible aspiration pneumonitis. No current evidence of malignancy or heart failure.
--- NOTE | 2019-10-09 14:37 | CT ---
EXAMINATION: Head wo Cont SEX: Female AGE: 79 years CLINICAL HISTORY: 79-year-old hypoxic female (COPD) with worsening CONFUSION and new HALLUCINATIONS. Rule out intracranial bleed this patient on anticoagulant therapy. Scan technique: Volume acquisition of data from the unenhanced head and brain obtained with patient lying supine on the Siemens multislice scanner [place], [place]. All data archived in the PACS system for storage, reformatting axial/sagittal/coronal planes and study. Comparison exam 11 March 2019. Interpretation: Abnormal but no change since February 2019 CT scan head. 1. *Chronic multi-infarct ischemic disease with particularly severe involvement right cerebral hemisphere and both external capsules unchanged compared directly to images 11 March 2019. Chronic dilatation ipsilateral ventricle on the right. 2. No new evidence of acute intracranial bleed i.e. no sign of acute intracerebral cyst/intraventricular/subarachnoid blood. 3. No new supratentorial or posterior fossa mass lesion. 4. Cerebellum and brainstem remain unremarkable and unchanged. 5. Uniformly thick bony calvarium without sign of skull fracture, underlying brain contusion or epidural/subdural hematoma. 6. Symmetric clear pneumatization of the paranasal and mastoid sinuses. Specifically, no new evidence inflammation.
[2019-10-09] MEDS ORDERED: methylPREDNISolone Sodium Succinate 125 MG/2 ML SDV IVPUSH ONE (14:42)
[2019-10-09] MEDS ORDERED: Acetaminophen 325 MG Tab PO PRN (16:38)
[2019-10-09] MEDS ORDERED: Magnesium Hydroxide 400 MG/5 ML Susp 30 ML Cup PO PRN (16:38)
[2019-10-09] MEDS ORDERED: Docusate Sodium 100 MG Cap PO PRN (16:38)
[2019-10-09] MEDS ORDERED: Albuterol 6.7 GM Inhaler INH PRN (16:42)
--- NOTE | 2019-10-09 16:56 | PCM.HP ---
H&P History of Present Illness - General Date of Service: 10/09/19 Admit Problem/Dx: Admission Diagnosis/Problem Admission Diagnosis/Problem COPD, Severe chronic obstructive pulmonary disease Source of Information: EMS, Family History Limitations: Reports: No Limitations - History of Present Illness Initial Comments - Free Text/Narative: Cade is 79 y/o F wit PMH of Advanced dementia, COPD on home oxygen 2 L, h/o CVA on chronic anticoagulation with warfarin who was brought from [facility] to ED due to new onset of hallucination, SOB and hypoxia requiring increased supplemental oxygen. Patient is a poor historian and unable to provide adequate history. History from and ED provider. As per patient has been having increasing shortness of breath. He reports her O2 sats drops to mid 80s today. She is on 2 L of oxygen via nasal cannula at home. Oxygen was increased to 4 L today. also reports patient having new onset hallucination and she appears increasingly confused. Patient reports fatigue. She is unable to sleep at night as per . is requesting sleep aid to help with her sleep. Patient denies headache, fever, chills. She is alert and oriented x3. Denies dysuria, increased urinary frequency, diarrhea, nausea, vomiting, abdominal pain. She has no cough, sore throat, runny nose. In the ED her vitals were essentially unremarkable. Initial labs unremarkable. CT head was negative for acute intracranial process. Chest CT was negative for acute process. Patient was admitted for further management. Duration of Symptoms: Reports: Day(s): Location: Reports: Chest Quality: Reports: Ache Severity: Mild Improves with: Reports: None Worsens with: Reports: None Associated Symptoms: Reports: No Other Symptoms - Related Data Allergies/Adverse Reactions: Allergies Allergy/AdvReac Type Severity Reaction Status Date / Time No Known Allergies Allergy Verified 10/09/19 16:08 Home Medications: Home Meds Fluticasone/Salmeterol [Advair 100-50] 2 puff INH BID PRN 07/28/13 [History] Tiotropium [Spiriva Handihaler] 1 puff INH DAILY 07/28/13 [History] Warfarin [Coumadin] 7.5 mg PO DAILY 07/28/13 [History] Albuterol [Proventil HFA] 2 puff INH Q4H PRN 03/26/14 [History] Levothyroxine [Synthroid] 50 mcg PO ACBRK 03/26/14 [History] Sertraline [Zoloft] 25 mg PO DAILY 03/26/14 [History] Glucosam/Chond/Collagen/Hyalur [Glucosamine Chondroitin] 2 tab PO DAILY [History] Ipratropium/Albuterol Sulfate [Duoneb 0.5 mg-3 mg/3 ml Soln] 1 ampule INH Q4HR PRN 05/01/14 [History] Multivitamin [Multivitamins] 1 tab PO DAILY 05/01/14 [History] Rolaids 2 tab.chew CHEW ASDIRECTED PRN 05/01/14 [History] atorvaSTATin Calcium [Atorvastatin Calcium] 20 mg PO DAILY 12/21/15 [History] Past Medical History HEENT History: Reports: Cataract, Hard of Hearing, Impaired Vision, Other (See Below) Other HEENT History: very early cataracts Cardiovascular History: Reports: High Cholesterol Respiratory History: Reports: Asthma, Bronchitis, Recurrent, COPD, SOB 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: Reports: GERD [employer] History: Reports: Other OB/BYN History: 3 NVD Musculoskeletal History: Reports: Arthritis, Fracture, Other (See Below) Other Musculoskeletal History: history of fractured wrist (right), fractured clavicle Neurological History: Reports: CVA Psychiatric History: Reports: Anxiety, Depression Endocrine/Metabolic History: Reports: Hypothyroidism, Vitamin D Deficiency Hematologic History: Reports: Anemia, Iron Deficiency Immunologic History: Reports: None Oncologic (Cancer) History: Reports: None - Past Surgical History HEENT Surgical History: Reports: Tonsillectomy GI Surgical History: Reports: Appendectomy Female Surgical History: Reports: D&C Social & Family History - Family History Family Medical History: Noncontributory Respiratory: Reports: TB - Tobacco Use Smoking Status *Q: Current Every Day Smoker Years of Tobacco use: 66 Packs/Tins Daily: 1 - Caffeine Use Caffeine Use: Reports: Coffee Other Caffeine Use: 1-2 pots/day - Recreational Drug Use Recreational Drug Use: No - Living Situation & Occupation Living situation: Reports: with Family H&P Review of Systems - Review of Systems: Review Of Systems: See Below General: Reports: No Symptoms HEENT: Reports: No Symptoms Pulmonary: Reports: No Symptoms Cardiovascular: Reports: No Symptoms Gastrointestinal: Reports: No Symptoms Genitourinary: Reports: No Symptoms Musculoskeletal: Reports: No Symptoms Skin: Reports: No Symptoms Psychiatric: Reports: No Symptoms Neurological: Reports: No Symptoms Hematologic/Lymphatic: Reports: No Symptoms Immunologic: Reports: No Symptoms Exam - Exam Exam: See Below - Vital Signs Vital Signs: Last Vital Signs Temp 99.2 F 10/09/19 12:35 Pulse 94 10/09/19 15:07 Resp 23 H 10/09/19 12:35 BP 160/87 H 10/09/19 12:35 Pulse Ox 84 L 10/09/19 12:35 Weight: 95 lb 3.835 oz - Exam General: Alert, Oriented, 4 HEENT: PERRLA, Hearing Intact, Mucosa Moist & [place], Nares Patent, Normal Nasal Septum, Posterior Pharynx Clear, Conjunctiva Clear, EOMI, EACs Clear, TMs Clear Neck: Supple, Trachea Midline, 2 Lungs: Clear to Auscultation, Normal Respiratory Effort Cardiovascular: Regular Rate, Regular Rhythm GI/Abdominal Exam: Normal Bowel Sounds, Soft, Non-Tender, No Organomegaly, No Distention, No Abnormal Bruit, No Mass, Pelvis Stable (Female) Exam: Normal External Exam, Normal Speculum Exam, Normal Bimanual Exam Rectal (Female) Exam: Normal Exam, Normal Rectal Tone Back Exam: Normal Inspection, Full Range of Motion, NT Extremities: Normal Inspection, Normal Range of Motion, Non-Tender, No Pedal Edema, Normal Capillary Refill Skin: Warm, Dry, Intact Neurological: Cranial Nerves Intact, Reflexes Equal Bilateral Neuro Extensive - Mental Status: Alert, Oriented x3, Normal Mood/Affect, Normal Cognition Neuro Extensive - Motor, Sensory, Reflexes: CN II-XII Intact, Normal Gait, Normal Reflexes Psychiatric: Alert, Normal Affect, Normal Mood - Patient Data Lab Results Last 24 hrs: Laboratory Results - last 24 hr 10/09/19 10/09/19 10/09/19 Range/Units 13:25 13:25 13:25 WBC 7.9 (5.0-10.0) 10^3/uL RBC 4.16 L (4.2-5.4) 10^6/uL Hgb 12.1 (12.0-16.0) g/dL Hct 38.9 (37.0-47.0) % MCV 93.5 (80-100) fL MCH 29.1 (27.0-34.0) pg MCHC 31.1 L (33.0-35.0) g/dL Plt Count 168 (150-450) 10^3/uL Neut % (Auto) 87.1 H (42.2-75.2) % Lymph % (Auto) 5.4 L (20.5-50.1) % [place] % (Auto) 7.2 (2-8) % Eos % (Auto) 0.0 L (1.0-3.0) % Baso % (Auto) 0.3 (0.0-1.0) % PT 33.7 H D (9.0-12.0) SEC INR 3.5 H (0.9-1.2) Sodium 139 (135-145) mmol/L Potassium 3.3 L (3.6-5.0) mmol/L Chloride 95 L (101-111) mmol/L Carbon Dioxide 35.0 H (21.0-31.0) mmol/L Anion Gap 12.3 BUN 16 (7-18) mg/dL Creatinine 0.5 L (0.6-1.3) mg/dL Est Cr Clr Drug Dosing 72.40 mL/min Estimated GFR (MDRD) > 60 BUN/Creatinine Ratio 32.00 Glucose 103 (74-105) mg/dL Lactic Acid (0.5-2.0) mmol/L Calcium 8.9 (8.4-10.2) mg/dl Total Bilirubin 0.6 (0.2-1.0) mg/dL AST 23 (10-42) IU/L ALT 20 (10-60) IU/L Alkaline Phosphatase 55 (42-121) IU/L Ammonia (11-35) umol/L B-Natriuretic Peptide 107 H (0-100) pg/ml Total Protein 7.0 (6.7-8.2) g/dl Albumin 3.7 (3.2-5.5) g/dl Globulin 3.3 Albumin/Globulin Ratio 1.12 TSH, Ultra Sensitive (0.45-5.33) uIu/mL Urine Color (YELLOW) Urine Appearance (CLEAR) Urine pH (5.0-9.0) Ur Specific Andreas (1.005-1.030) Urine Protein (NEGATIVE) Urine Glucose (UA) (NEGATIVE) Urine Ketones (NEGATIVE) Urine Occult Blood (NEGATIVE) Urine Nitrite (NEGATIVE) Urine Bilirubin (NEGATIVE) Urine Urobilinogen (0.2-1.0) mg/dL Ur Leukocyte Esterase (NEGATIVE) Urine RBC /HPF Urine WBC (0-5/HPF) /HPF Ur Epithelial Cells (NOT SEEN) /HPF Amorphous Sediment (NOT SEEN) /HPF Urine Bacteria (0-FEW/HPF) /HPF Urine Mucus (NOT SEEN) /LPF Urine Opiates Screen (NEGATIVE) Ur Oxycodone Screen (NEGATIVE) Urine Methadone Screen (NEGATIVE) Ur Barbiturates Screen (NEGATIVE) U Tricyclic Antidepress (NEGATIVE) Ur Phencyclidine Scrn (NEGATIVE) Ur Amphetamine Screen (NEGATIVE) U Methamphetamines Scrn (NEGATIVE) Urine MDMA Screen (NEGATIVE) U Benzodiazepines Scrn (NEGATIVE) Urine Cocaine Screen (NEGATIVE) U Marijuana (THC) Screen (NEGATIVE) Ethyl Alcohol < 5 mg/dL 10/09/19 10/09/19 10/09/19 Range/Units 13:25 13:25 13:25 WBC (5.0-10.0) 10^3/uL RBC (4.2-5.4) 10^6/uL Hgb (12.0-16.0) g/dL Hct (37.0-47.0) % MCV (80-100) fL MCH (27.0-34.0) pg MCHC (33.0-35.0) g/dL Plt Count (150-450) 10^3/uL Neut % (Auto) (42.2-75.2) % Lymph % (Auto) (20.5-50.1) % [place] % (Auto) (2-8) % Eos % (Auto) (1.0-3.0) % Baso % (Auto) (0.0-1.0) % PT (9.0-12.0) SEC INR (0.9-1.2) Sodium (135-145) mmol/L Potassium (3.6-5.0) mmol/L Chloride (101-111) mmol/L Carbon Dioxide (21.0-31.0) mmol/L Anion Gap BUN (7-18) mg/dL Creatinine (0.6-1.3) mg/dL Est Cr Clr Drug Dosing mL/min Estimated GFR (MDRD) BUN/Creatinine Ratio Glucose (74-105) mg/dL Lactic Acid 1.1 (0.5-2.0) mmol/L Calcium (8.4-10.2) mg/dl Total Bilirubin (0.2-1.0) mg/dL AST (10-42) IU/L ALT (10-60) IU/L Alkaline Phosphatase (42-121) IU/L Ammonia 22 (11-35) umol/L B-Natriuretic Peptide (0-100) pg/ml Total Protein (6.7-8.2) g/dl Albumin (3.2-5.5) g/dl Globulin Albumin/Globulin Ratio TSH, Ultra Sensitive 1.70 (0.45-5.33) uIu/mL Urine Color (YELLOW) Urine Appearance (CLEAR) Urine pH (5.0-9.0) Ur Specific Andreas (1.005-1.030) Urine Protein (NEGATIVE) Urine Glucose (UA) (NEGATIVE) Urine Ketones (NEGATIVE) Urine Occult Blood (NEGATIVE) Urine Nitrite (NEGATIVE) Urine Bilirubin (NEGATIVE) Urine Urobilinogen (0.2-1.0) mg/dL Ur Leukocyte Esterase (NEGATIVE) Urine RBC /HPF Urine WBC (0-5/HPF) /HPF Ur Epithelial Cells (NOT SEEN) /HPF Amorphous Sediment (NOT SEEN) /HPF Urine Bacteria (0-FEW/HPF) /HPF Urine Mucus (NOT SEEN) /LPF Urine Opiates Screen (NEGATIVE) Ur Oxycodone Screen (NEGATIVE) Urine Methadone Screen (NEGATIVE) Ur Barbiturates Screen (NEGATIVE) U Tricyclic Antidepress (NEGATIVE) Ur Phencyclidine Scrn (NEGATIVE) Ur Amphetamine Screen (NEGATIVE) U Methamphetamines Scrn (NEGATIVE) Urine MDMA Screen (NEGATIVE) U Benzodiazepines Scrn (NEGATIVE) Urine Cocaine Screen (NEGATIVE) U Marijuana (THC) Screen (NEGATIVE) Ethyl Alcohol mg/dL 10/09/19 10/09/19 Range/Units 14:21 14:21 WBC (5.0-10.0) 10^3/uL RBC (4.2-5.4) 10^6/uL Hgb (12.0-16.0) g/dL Hct (37.0-47.0) % MCV (80-100) fL MCH (27.0-34.0) pg MCHC (33.0-35.0) g/dL Plt Count (150-450) 10^3/uL Neut % (Auto) (42.2-75.2) % Lymph % (Auto) (20.5-50.1) % [place] % (Auto) (2-8) % Eos % (Auto) (1.0-3.0) % Baso % (Auto) (0.0-1.0) % PT (9.0-12.0) SEC INR (0.9-1.2) Sodium (135-145) mmol/L Potassium (3.6-5.0) mmol/L Chloride (101-111) mmol/L Carbon Dioxide (21.0-31.0) mmol/L Anion Gap BUN (7-18) mg/dL Creatinine (0.6-1.3) mg/dL Est Cr Clr Drug Dosing mL/min Estimated GFR (MDRD) BUN/Creatinine Ratio Glucose (74-105) mg/dL Lactic Acid (0.5-2.0) mmol/L Calcium (8.4-10.2) mg/dl Total Bilirubin (0.2-1.0) mg/dL AST (10-42) IU/L ALT (10-60) IU/L Alkaline Phosphatase (42-121) IU/L Ammonia (11-35) umol/L B-Natriuretic Peptide (0-100) pg/ml Total Protein (6.7-8.2) g/dl Albumin (3.2-5.5) g/dl Globulin Albumin/Globulin Ratio TSH, Ultra Sensitive (0.45-5.33) uIu/mL Urine Color Yellow (YELLOW) Urine Appearance Slightly cloudy (CLEAR) Urine pH 7.0 (5.0-9.0) Ur Specific Andreas 1.025 (1.005-1.030) Urine Protein Negative (NEGATIVE) Urine Glucose (UA) Negative (NEGATIVE) Urine Ketones Negative (NEGATIVE) Urine Occult Blood Trace-lysed H (NEGATIVE) Urine Nitrite Negative (NEGATIVE) Urine Bilirubin Negative (NEGATIVE) Urine Urobilinogen 0.2 (0.2-1.0) mg/dL Ur Leukocyte Esterase Negative (NEGATIVE) Urine RBC 0-5 /HPF Urine WBC 0-5 (0-5/HPF) /HPF Ur Epithelial Cells Occasional (NOT SEEN) /HPF Amorphous Sediment Many H (NOT SEEN) /HPF Urine Bacteria Few (0-FEW/HPF) /HPF Urine Mucus Rare (NOT SEEN) /LPF Urine Opiates Screen Negative (NEGATIVE) Ur Oxycodone Screen Negative (NEGATIVE) Urine Methadone Screen Negative (NEGATIVE) Ur Barbiturates Screen Negative (NEGATIVE) U Tricyclic Antidepress Negative (NEGATIVE) Ur Phencyclidine Scrn Negative (NEGATIVE) Ur Amphetamine Screen Negative (NEGATIVE) U Methamphetamines Scrn Negative (NEGATIVE) Urine MDMA Screen Negative (NEGATIVE) U Benzodiazepines Scrn Negative (NEGATIVE) Urine Cocaine Screen Negative (NEGATIVE) U Marijuana (THC) Screen Negative (NEGATIVE) Ethyl Alcohol mg/dL Result Diagrams: 10/09/19 13:25 10/09/19 13:25 - Problem List (1) Dementia SNOMED Code(s): 92428599 ICD Code: F03.90 - UNSPECIFIED DEMENTIA WITHOUT BEHAVIORAL DISTURBANCE Status: Acute Current Visit: Yes (2) Acute exacerbation of chronic obstructive airways disease SNOMED Code(s): 964599572 ICD Code: J44.1 - CHRONIC OBSTRUCTIVE PULMONARY DISEASE W (ACUTE) EXACERBATION Status: Acute Current Visit: No (3) Acute on chronic respiratory failure SNOMED Code(s): 22039043 ICD Code: J96.20 - ACUTE AND CHR RESP FAILURE, UNSP W HYPOXIA OR HYPERCAPNIA Status: Acute Current Visit: No Qualifiers: Respiratory failure complication: hypoxia Qualified Code(s): J96.21 - Acute and chronic respiratory failure with hypoxia Problem List Initiated/Reviewed/Updated: Yes Orders Last 24hrs: Active Orders 24 hr Category Date Time Status Admission Diagnosis [ADT] Routine ADT 10/09/19 15:27 Ordered Patient Status [ADT] Routine ADT 10/09/19 15:27 Active Ambulate [RC] ASDIRECTED Care 10/09/19 16:38 Active Height and Weight [RC] DAILY Care 10/09/19 16:38 Active Intake and Output [RC] QSHIFT Care 10/09/19 16:41 Active Notify Provider Vital Signs [RC] ASDIRECTED Care 10/09/19 16:42 Active Oxygen Therapy [RC] CONTINUOUS Care 10/09/19 16:41 Active Peripheral IV Care [RC] ,21 Care 10/09/19 13:01 Active Pulse Oximetry [RC] PRN Care 10/09/19 16:41 Active RT Aerosol Therapy [RC] ASDIRECTED Care 10/09/19 13:02 Active RT Aerosol Therapy [RC] ASDIRECTED Care 10/09/19 14:43 Active Vital Signs [RC] Q4H Care 10/09/19 16:38 Active Regular Diet [DIET] Diet 10/09/19 Dinner Active Acetaminophen [Tylenol] Med 10/09/19 16:38 Ordered 650 mg PO Q4H PRN Albuterol [Proventil HFA] Med 10/09/19 16:42 Ordered 2 puff INH Q4H PRN Albuterol/Ipratropium [DuoNeb 3.0-0.5 MG/3 ML] Med 10/09/19 16:42 Ordered 1 ampule INH Q4HR PRN Azithromycin [Zithromax] 500 mg Med 10/09/19 16:45 Ordered Sodium Chloride 0.9% [Normal Saline (AdvBag)] 250 ml IV Q24H Docusate Sodium [Colace] Med 10/09/19 16:38 Ordered 100 mg PO DAILY PRN Fluticasone/Salmeterol [Advair 100-50] Med 10/09/19 16:42 Ordered 2 puff INH BID PRN Levothyroxine [Synthroid] Med 10/10/19 06:00 Ordered 50 mcg PO ACBRK Magnesium Hydroxide [Milk of Magnesia] Med 10/09/19 16:38 Ordered 30 ml PO BID PRN Sertraline [Zoloft] Med 10/10/19 09:00 Ordered 25 mg PO DAILY Sodium Chloride 0.9% [Saline Flush] Med 10/09/19 13:01 Active 10 ml FLUSH ASDIRECTED PRN Tiotropium [Spiriva HandiHaler] Med 10/10/19 09:00 Ordered 1 puff INH DAILY atorvaSTATin [Lipitor] Med 10/10/19 09:00 Ordered 20 mg PO DAILY methylPREDNISolone Sod Succ [Solu-MEDROL] Med 10/09/19 22:00 Ordered 40 mg IVPUSH Q8H Peripheral IV Insertion Adult [OM.PC] Stat Oth 10/09/19 13:00 Ordered Resuscitation Status Routine Resus Stat 10/09/19 16:38 Ordered Medication Orders Sodium Chloride (Saline Flush) 10 ml FLUSH ASDIRECTED PRN PRN Reason: Keep Vein Open Last Admin: 10/09/19 12:40 Dose: 10 ml Assessment/Plan Comment:: #Acute on chronic respiratory failure -Patient presented to the ED with increasing shortness of breath requiring increased supplemental oxygen -Admit to medical floor -Continue supplemental oxygen and wean off as tolerated #COPD exacerbation -Breathing treatment -Solu-Medrol -Azithromycin #Hypokalemia -Place per protocol #Supratherapeutic INR -3.5 -Hold Coumadin -Daily INR #Advanced dementia -Continue home medication #Diet -Regular #CODE STATUS -Full
[2019-10-09] MEDS ORDERED: Melatonin 3 MG Tab PO PRN (17:09)
[2019-10-09] MEDS ORDERED: Formoterol/Mometasone 100-5 MCG 8.8 GM Inhaler IH PRN (17:15)
[2019-10-09] MEDS: Azithromycin 500 MG in Sodium Chloride 0.9% 250 ML IV SCH (19:00)
[2019-10-09] MEDS: methylPREDNISolone Sodium Succinate 40 MG/1 ML SDV IVPUSH SCH (21:11)
[2019-10-09] MEDS: Potassium Chloride 10 MEQ Tab.ER PO SCH (21:19)
[2019-10-09] MEDS: Albuterol/Ipratropium 3.0-0.5 MG/3 ML Neb Soln INH PRN (22:21)
[2019-10-10] MEDS: Levothyroxine 50 MCG Tab PO SCH (06:32)
[2019-10-10] MEDS: Sodium Chloride 0.9% 10 ML Syringe FLUSH PRN ×2 (06:33→13:44)
[2019-10-10] MEDS: methylPREDNISolone Sodium Succinate 40 MG/1 ML SDV IVPUSH SCH ×3 (06:33→22:28)
[2019-10-10] MEDS: Albuterol/Ipratropium 3.0-0.5 MG/3 ML Neb Soln INH PRN (06:40)
[2019-10-10] MEDS: Tiotropium Inhaler 18 MCG Inhalation Powder Cap Kit of 5 INH SCH (07:28)
[2019-10-10] MEDS: atorvaSTATin 20 MG Tab PO SCH (08:03)
[2019-10-10] MEDS ORDERED: Sertraline 50 MG Tab PO SCH ×2 (09:00→21:00)
--- NOTE | 2019-10-10 10:06 | PCM.PN ---
- General Info Date of Service: 10/10/19 Admission Dx/Problem (Free Text): Admission Diagnosis/Problem Admission Diagnosis/Problem COPD, Severe chronic obstructive pulmonary disease Functional Status: Reports: Pain Controlled - Review of Systems General: Reports: No Symptoms HEENT: Reports: No Symptoms Pulmonary: Reports: No Symptoms Cardiovascular: Reports: No Symptoms Gastrointestinal: Reports: No Symptoms Genitourinary: Reports: No Symptoms Musculoskeletal: Reports: No Symptoms Skin: Reports: No Symptoms Neurological: Reports: No Symptoms Psychiatric: Reports: No Symptoms - Patient Data Vitals - Most Recent: Last Vital Signs Temp 98.4 F 10/10/19 08:00 Pulse 91 10/10/19 08:00 Resp 20 10/10/19 08:00 BP 109/81 10/10/19 08:00 Pulse Ox 92 L 10/10/19 08:00 Weight - Most Recent: 95 lb 3.2 oz I&O - Last 24 Hours: Intake & Output 10/09/19 10/10/19 10/10/19 22:59 06:59 14:59 Intake Total 910 Output Total 200 Balance 910 -200 Lab Results Last 24 Hours: Laboratory Results - last 24 hr 10/09/19 10/09/19 10/09/19 Range/Units 13:25 13:25 13:25 WBC 7.9 (5.0-10.0) 10^3/uL RBC 4.16 L (4.2-5.4) 10^6/uL Hgb 12.1 (12.0-16.0) g/dL Hct 38.9 (37.0-47.0) % MCV 93.5 (80-100) fL MCH 29.1 (27.0-34.0) pg MCHC 31.1 L (33.0-35.0) g/dL Plt Count 168 (150-450) 10^3/uL Neut % (Auto) 87.1 H (42.2-75.2) % Lymph % (Auto) 5.4 L (20.5-50.1) % [place] % (Auto) 7.2 (2-8) % Eos % (Auto) 0.0 L (1.0-3.0) % Baso % (Auto) 0.3 (0.0-1.0) % PT 33.7 H D (9.0-12.0) SEC INR 3.5 H (0.9-1.2) Sodium 139 (135-145) mmol/L Potassium 3.3 L (3.6-5.0) mmol/L Chloride 95 L (101-111) mmol/L Carbon Dioxide 35.0 H (21.0-31.0) mmol/L Anion Gap 12.3 BUN 16 (7-18) mg/dL Creatinine 0.5 L (0.6-1.3) mg/dL Est Cr Clr Drug Dosing 72.40 mL/min Estimated GFR (MDRD) > 60 BUN/Creatinine Ratio 32.00 Glucose 103 (74-105) mg/dL Lactic Acid (0.5-2.0) mmol/L Calcium 8.9 (8.4-10.2) mg/dl Total Bilirubin 0.6 (0.2-1.0) mg/dL AST 23 (10-42) IU/L ALT 20 (10-60) IU/L Alkaline Phosphatase 55 (42-121) IU/L Ammonia (11-35) umol/L B-Natriuretic Peptide 107 H (0-100) pg/ml Total Protein 7.0 (6.7-8.2) g/dl Albumin 3.7 (3.2-5.5) g/dl Globulin 3.3 Albumin/Globulin Ratio 1.12 TSH, Ultra Sensitive (0.45-5.33) uIu/mL Urine Color (YELLOW) Urine Appearance (CLEAR) Urine pH (5.0-9.0) Ur Specific [place] (1.005-1.030) Urine Protein (NEGATIVE) Urine Glucose (UA) (NEGATIVE) Urine Ketones (NEGATIVE) Urine Occult Blood (NEGATIVE) Urine Nitrite (NEGATIVE) Urine Bilirubin (NEGATIVE) Urine Urobilinogen (0.2-1.0) mg/dL Ur Leukocyte Esterase (NEGATIVE) Urine RBC /HPF Urine WBC (0-5/HPF) /HPF Ur Epithelial Cells (NOT SEEN) /HPF Amorphous Sediment (NOT SEEN) /HPF Urine Bacteria (0-FEW/HPF) /HPF Urine Mucus (NOT SEEN) /LPF Urine Opiates Screen (NEGATIVE) Ur Oxycodone Screen (NEGATIVE) Urine Methadone Screen (NEGATIVE) Ur Barbiturates Screen (NEGATIVE) U Tricyclic Antidepress (NEGATIVE) Ur Phencyclidine Scrn (NEGATIVE) Ur Amphetamine Screen (NEGATIVE) U Methamphetamines Scrn (NEGATIVE) Urine MDMA Screen (NEGATIVE) U Benzodiazepines Scrn (NEGATIVE) Urine Cocaine Screen (NEGATIVE) U Marijuana (THC) Screen (NEGATIVE) Ethyl Alcohol < 5 mg/dL 10/09/19 10/09/19 10/09/19 Range/Units 13:25 13:25 13:25 WBC (5.0-10.0) 10^3/uL RBC (4.2-5.4) 10^6/uL Hgb (12.0-16.0) g/dL Hct (37.0-47.0) % MCV (80-100) fL MCH (27.0-34.0) pg MCHC (33.0-35.0) g/dL Plt Count (150-450) 10^3/uL Neut % (Auto) (42.2-75.2) % Lymph % (Auto) (20.5-50.1) % [place] % (Auto) (2-8) % Eos % (Auto) (1.0-3.0) % Baso % (Auto) (0.0-1.0) % PT (9.0-12.0) SEC INR (0.9-1.2) Sodium (135-145) mmol/L Potassium (3.6-5.0) mmol/L Chloride (101-111) mmol/L Carbon Dioxide (21.0-31.0) mmol/L Anion Gap BUN (7-18) mg/dL Creatinine (0.6-1.3) mg/dL Est Cr Clr Drug Dosing mL/min Estimated GFR (MDRD) BUN/Creatinine Ratio Glucose (74-105) mg/dL Lactic Acid 1.1 (0.5-2.0) mmol/L Calcium (8.4-10.2) mg/dl Total Bilirubin (0.2-1.0) mg/dL AST (10-42) IU/L ALT (10-60) IU/L Alkaline Phosphatase (42-121) IU/L Ammonia 22 (11-35) umol/L B-Natriuretic Peptide (0-100) pg/ml Total Protein (6.7-8.2) g/dl Albumin (3.2-5.5) g/dl Globulin Albumin/Globulin Ratio TSH, Ultra Sensitive 1.70 (0.45-5.33) uIu/mL Urine Color (YELLOW) Urine Appearance (CLEAR) Urine pH (5.0-9.0) Ur Specific [place] (1.005-1.030) Urine Protein (NEGATIVE) Urine Glucose (UA) (NEGATIVE) Urine Ketones (NEGATIVE) Urine Occult Blood (NEGATIVE) Urine Nitrite (NEGATIVE) Urine Bilirubin (NEGATIVE) Urine Urobilinogen (0.2-1.0) mg/dL Ur Leukocyte Esterase (NEGATIVE) Urine RBC /HPF Urine WBC (0-5/HPF) /HPF Ur Epithelial Cells (NOT SEEN) /HPF Amorphous Sediment (NOT SEEN) /HPF Urine Bacteria (0-FEW/HPF) /HPF Urine Mucus (NOT SEEN) /LPF Urine Opiates Screen (NEGATIVE) Ur Oxycodone Screen (NEGATIVE) Urine Methadone Screen (NEGATIVE) Ur Barbiturates Screen (NEGATIVE) U Tricyclic Antidepress (NEGATIVE) Ur Phencyclidine Scrn (NEGATIVE) Ur Amphetamine Screen (NEGATIVE) U Methamphetamines Scrn (NEGATIVE) Urine MDMA Screen (NEGATIVE) U Benzodiazepines Scrn (NEGATIVE) Urine Cocaine Screen (NEGATIVE) U Marijuana (THC) Screen (NEGATIVE) Ethyl Alcohol mg/dL 10/09/19 10/09/19 10/10/19 Range/Units 14:21 14:21 06:15 WBC (5.0-10.0) 10^3/uL RBC (4.2-5.4) 10^6/uL Hgb (12.0-16.0) g/dL Hct (37.0-47.0) % MCV (80-100) fL MCH (27.0-34.0) pg MCHC (33.0-35.0) g/dL Plt Count (150-450) 10^3/uL Neut % (Auto) (42.2-75.2) % Lymph % (Auto) (20.5-50.1) % [place] % (Auto) (2-8) % Eos % (Auto) (1.0-3.0) % Baso % (Auto) (0.0-1.0) % PT 38.1 H (9.0-12.0) SEC INR 4.0 H (0.9-1.2) Sodium (135-145) mmol/L Potassium (3.6-5.0) mmol/L Chloride (101-111) mmol/L Carbon Dioxide (21.0-31.0) mmol/L Anion Gap BUN (7-18) mg/dL Creatinine (0.6-1.3) mg/dL Est Cr Clr Drug Dosing mL/min Estimated GFR (MDRD) BUN/Creatinine Ratio Glucose (74-105) mg/dL Lactic Acid (0.5-2.0) mmol/L Calcium (8.4-10.2) mg/dl Total Bilirubin (0.2-1.0) mg/dL AST (10-42) IU/L ALT (10-60) IU/L Alkaline Phosphatase (42-121) IU/L Ammonia (11-35) umol/L B-Natriuretic Peptide (0-100) pg/ml Total Protein (6.7-8.2) g/dl Albumin (3.2-5.5) g/dl Globulin Albumin/Globulin Ratio TSH, Ultra Sensitive (0.45-5.33) uIu/mL Urine Color Yellow (YELLOW) Urine Appearance Slightly cloudy (CLEAR) Urine pH 7.0 (5.0-9.0) Ur Specific [place] 1.025 (1.005-1.030) Urine Protein Negative (NEGATIVE) Urine Glucose (UA) Negative (NEGATIVE) Urine Ketones Negative (NEGATIVE) Urine Occult Blood Trace-lysed H (NEGATIVE) Urine Nitrite Negative (NEGATIVE) Urine Bilirubin Negative (NEGATIVE) Urine Urobilinogen 0.2 (0.2-1.0) mg/dL Ur Leukocyte Esterase Negative (NEGATIVE) Urine RBC 0-5 /HPF Urine WBC 0-5 (0-5/HPF) /HPF Ur Epithelial Cells Occasional (NOT SEEN) /HPF Amorphous Sediment Many H (NOT SEEN) /HPF Urine Bacteria Few (0-FEW/HPF) /HPF Urine Mucus Rare (NOT SEEN) /LPF Urine Opiates Screen Negative (NEGATIVE) Ur Oxycodone Screen Negative (NEGATIVE) Urine Methadone Screen Negative (NEGATIVE) Ur Barbiturates Screen Negative (NEGATIVE) U Tricyclic Antidepress Negative (NEGATIVE) Ur Phencyclidine Scrn Negative (NEGATIVE) Ur Amphetamine Screen Negative (NEGATIVE) U Methamphetamines Scrn Negative (NEGATIVE) Urine MDMA Screen Negative (NEGATIVE) U Benzodiazepines Scrn Negative (NEGATIVE) Urine Cocaine Screen Negative (NEGATIVE) U Marijuana (THC) Screen Negative (NEGATIVE) Ethyl Alcohol mg/dL Med Orders - Current: Current Medications Acetaminophen (Tylenol) 650 mg PO Q4H PRN PRN Reason: Pain (mild 1-3 )/fever Albuterol (Proventil Hfa) 0 gm INH Q4H PRN PRN Reason: Shortness of Breath Albuterol/Ipratropium (Duoneb 3.0-0.5 Mg/3 Ml) 3 ml INH Q4H PRN PRN Reason: Shortness of Breath Last Admin: 10/10/19 06:40 Dose: 3 ml Atorvastatin Calcium (Lipitor) 20 mg PO DAILY [facility] Last Admin: 10/10/19 08:03 Dose: 20 mg Docusate Sodium (Colace) 100 mg PO DAILY PRN PRN Reason: Constipation Azithromycin 500 mg/ Sodium (Chloride) 250 mls @ 250 mls/hr IV Q24H [facility] Last Infusion: 10/09/19 21:11 Dose: Infused Levothyroxine Sodium (Synthroid) 50 mcg PO ACBRK [facility] Last Admin: 10/10/19 06:32 Dose: 50 mcg Magnesium Hydroxide (Milk Of Magnesia) 30 ml PO BID PRN PRN Reason: Constipation Melatonin (Melatonin) 3 mg PO BEDTIME PRN PRN Reason: Insomnia Methylprednisolone Sodium Succinate (Solu-Medrol) 40 mg IVPUSH Q8H [facility] Last Admin: 10/10/19 06:33 Dose: 40 mg Mometasone Furoate/Formoterol Fumar (Dulera 100-5 Mcg) 2 puff IH BID PRN PRN Reason: CONGESTION Potassium Chloride (Klor-Con 10) 40 meq PO BEDTIME [facility] Last Admin: 10/09/19 21:19 Dose: 40 meq Sertraline HCl (Zoloft) 25 mg PO DAILY [facility] Last Admin: 10/10/19 08:03 Dose: 25 mg Sodium Chloride (Saline Flush) 10 ml FLUSH ASDIRECTED PRN PRN Reason: Keep Vein Open Last Admin: 10/10/19 06:33 Dose: 10 ml Tiotropium [place] (Spiriva Handihaler) 18 mcg INH DAILYRT [facility] Last Admin: 10/10/19 07:28 Dose: 18 mcg Discontinued Medications Albuterol/Ipratropium (Duoneb 3.0-0.5 Mg/3 Ml) 3 ml NEB ONETIME ONE Stop: 10/09/19 13:02 Last Admin: 10/09/19 13:26 Dose: 3 ml Albuterol/Ipratropium (Duoneb 3.0-0.5 Mg/3 Ml) 3 ml NEB ONETIME ONE Stop: 10/09/19 14:43 Last Admin: 10/09/19 15:06 Dose: 3 ml Methylprednisolone Sodium Succinate (Solu-Medrol) 125 mg IVPUSH ONETIME ONE Stop: 10/09/19 14:43 Last Admin: 10/09/19 15:22 Dose: 125 mg - Exam Quality Assessment: Supplemental Oxygen, DVT Prophylaxis General: Alert, Oriented HEENT: Pupils Equal, Pupils Reactive, EOMI, Mucous Membr. Moist/[place] Neck: Supple Lungs: Clear to Auscultation, Normal Respiratory Effort Cardiovascular: Regular Rate, Regular Rhythm GI/Abdominal Exam: Normal Bowel Sounds, Soft, Non-Tender, No Organomegaly, No Distention, No Abnormal Bruit, No Mass, Pelvis Stable (Female) Exam: Normal External Exam, Normal Speculum Exam, Normal Bimanual Exam Back Exam: Normal Inspection, Full Range of Motion Extremities: Normal Inspection, Normal Range of Motion, Non-Tender, No Pedal Edema, Normal Capillary Refill Skin: Warm, Dry, Intact Wound/Incisions: Healing Well Neurological: No New Focal Deficit Psy/Mental Status: Alert, Normal Affect, Normal Mood Sepsis Event Note - Evaluation Sepsis Screening Result: No Definite Risk - Focused Exam Vital Signs: Vital Signs Temp Pulse Resp BP BP Pulse Ox Pulse Ox 10/10/19 08:00 98.4 F 91 20 109/81 92 L 10/10/19 07:56 107 H 85 L 10/10/19 04:00 98 F 82 20 139/57 L 98 10/09/19 22:30 104 H 88 L 10/09/19 22:20 98.6 F 104 H 24 H 140/80 88 L Date Exam was Performed: 10/10/19 Time Exam was Performed: 10:04 - Problem List & Annotations (1) Dementia SNOMED Code(s): 86983450 Code(s): F03.90 - UNSPECIFIED DEMENTIA WITHOUT BEHAVIORAL DISTURBANCE Status: Acute Current Visit: Yes (2) Acute exacerbation of chronic obstructive airways disease SNOMED Code(s): 652904403 Code(s): J44.1 - CHRONIC OBSTRUCTIVE PULMONARY DISEASE W (ACUTE) EXACERBATION Status: Acute Current Visit: No (3) Acute on chronic respiratory failure SNOMED Code(s): 46534208 Code(s): J96.20 - ACUTE AND CHR RESP FAILURE, UNSP W HYPOXIA OR HYPERCAPNIA Status: Acute Current Visit: No Qualifiers: Respiratory failure complication: hypoxia Qualified Code(s): J96.21 - Acute and chronic respiratory failure with hypoxia - Problem List Review Problem List Initiated/Reviewed/Updated: Yes - My Orders Last 24 Hours: My Active Orders 10/09/19 16:38 Ambulate [RC] ASDIRECTED Height and Weight [RC] 06 Vital Signs [RC] Q4H Acetaminophen [Tylenol] 650 mg PO Q4H PRN Docusate Sodium [Colace] 100 mg PO DAILY PRN Magnesium Hydroxide [Milk of Magnesia] 30 ml PO BID PRN Resuscitation Status Routine 10/09/19 16:41 Intake and Output [RC] QSHIFT Oxygen Therapy [RC] CONTINUOUS Pulse Oximetry [RC] PRN 10/09/19 16:42 Notify Provider Vital Signs [RC] ASDIRECTED Albuterol [Proventil HFA] 0 gm INH Q4H PRN Albuterol/Ipratropium [DuoNeb 3.0-0.5 MG/3 ML] 3 ml INH Q4H PRN 10/09/19 17:00 Azithromycin [Zithromax] 500 mg Sodium Chloride 0.9% [Normal Saline (AdvBag)] 250 ml IV Q24H 10/09/19 17:09 Melatonin 3 mg PO BEDTIME PRN 10/09/19 17:15 Mometasone/Formoterol [Dulera 100-5 MCG] 2 puff IH BID PRN 10/09/19 21:00 Potassium Chloride [Klor-Con 10] 40 meq PO BEDTIME 10/09/19 22:00 methylPREDNISolone Sod Succ [Solu-MEDROL] 40 mg IVPUSH Q8H 10/09/19 Dinner Regular Diet [DIET] 10/10/19 06:00 Levothyroxine [Synthroid] 50 mcg PO ACBRK 10/10/19 07:00 Tiotropium [Spiriva HandiHaler] 18 mcg INH DAILYRT 10/10/19 09:00 Sertraline [Zoloft] 25 mg PO DAILY atorvaSTATin [Lipitor] 20 mg PO DAILY - Plan Plan:: #Acute on chronic respiratory failure -Improving -Continue supplemental oxygen and wean off as tolerated #COPD exacerbation -Breathing treatment -Solu-Medrol -Azithromycin #Hypokalemia -Replete PO #Supratherapeutic INR -4 -Hold Coumadin -Daily INR #Advanced dementia -Continue home medication #Diet -Regular #CODE STATUS -Full
[2019-10-10] MEDS ORDERED: Albuterol/Ipratropium 3.0-0.5 MG/3 ML Neb Soln INH PRN (11:00)
[2019-10-10] MEDS ORDERED: Albuterol/Ipratropium 3.0-0.5 MG/3 ML Neb Soln NEB PRN (11:00)
[2019-10-10] MEDS: Albuterol/Ipratropium 3.0-0.5 MG/3 ML Neb Soln NEB SCH ×4 (11:05→22:28)
[2019-10-10] MEDS ORDERED: **NO WARFARIN TODAY ONE (14:00)
[2019-10-10] MEDS: Nicotine 14 MG/24 Hr Patch TRDERM SCH (17:04)
[2019-10-10] MEDS: Azithromycin 500 MG in Sodium Chloride 0.9% 250 ML IV SCH (17:31)
[2019-10-10] MEDS: Formoterol/Mometasone 100-5 MCG 8.8 GM Inhaler IH SCH (18:42)
[2019-10-10] MEDS ORDERED: Zolpidem 5 MG Tab PO PRN (19:23)
[2019-10-10] MEDS: Potassium Chloride 10 MEQ Tab.ER PO SCH (20:48)
[2019-10-11] MEDS: Albuterol/Ipratropium 3.0-0.5 MG/3 ML Neb Soln NEB SCH ×2 (03:29→07:46)
[2019-10-11] MEDS: Levothyroxine 50 MCG Tab PO SCH (06:04)
[2019-10-11] MEDS: Sodium Chloride 0.9% 10 ML Syringe FLUSH PRN (06:05)
[2019-10-11] MEDS: methylPREDNISolone Sodium Succinate 40 MG/1 ML SDV IVPUSH SCH (06:06)
[2019-10-11 06:54] LABS: ANION GAP 10.8; CHLORIDE,CL 97 mmol/L (101-111); SODIUM,NA 138 mmol/L (135-145)
[2019-10-11] MEDS: atorvaSTATin 20 MG Tab PO SCH (08:43)
[2019-10-11] MEDS: Formoterol/Mometasone 100-5 MCG 8.8 GM Inhaler IH SCH (08:43)
[2019-10-11] MEDS: Tiotropium Inhaler 18 MCG Inhalation Powder Cap Kit of 5 INH SCH (08:43)
[2019-10-11] MEDS: Nicotine 14 MG/24 Hr Patch TRDERM SCH (08:43)
[2019-10-11 09:07] VITALS: BP 113/60; PULSE 111
--- NOTE | 2019-10-11 10:00 | PCM.DCSUM1 ---
Discharge Summary - Hospital Course Free Text/Narrative:: Cade is 79 y/o F wit PMH of Advanced dementia, COPD on home oxygen 2 L, h/o CVA on chronic anticoagulation with warfarin who was brought from [facility] to ED due to new onset of hallucination, SOB and hypoxia requiring increased supplemental oxygen. She was admitted for acute on chronic respiratory failure due to COPD exacerbation. Chest CT was negative for acute process. She was managed with breathing treatments, Solu-Medrol and azithromycin. She also required increased supplemental oxygen. Her hospital course was uncomplicated. She was discharged in a stable condition home with home health services with plan to follow-up with PCP. Her Coumadin was held during this admission because of supratherapeutic INR. Patient was advised to recheck her INR on Monday and to resume Coumadin after review with PCP on Monday. Patient is homebound due to severe COPD with acute on chronic respiratory failure and was discharged with home health services. t Diagnosis: Stroke: No - Discharge Data Discharge Date: 10/11/19 Discharge Disposition: Home, W Home Health Agency 06 Condition: Stable - Referral to Home Health Date of Face to Face Encounter: 10/11/19 (Patient with advanced dementia, COPD and on home oxygen. Hospitalized with COPD exacerbation and acute on chronic respiratory failure due to same. She will require mcc to assess and instructs on disease process to ensure her COPD is improving. correction to assist respiratory status. Home health aides for bathing services.) Reason for Homebound Status: Patient has severe dementia and chronic respiratory failure due to severe COPD on home oxygen. Primary Care Physician: PCP Unobtainable Skilled Need: correction. Home health aide - Discharge Diagnosis/Problem(s) (1) Dementia SNOMED Code(s): 09837882 ICD Code: F03.90 - UNSPECIFIED DEMENTIA WITHOUT BEHAVIORAL DISTURBANCE Status: Acute Current Visit: Yes (2) Acute exacerbation of chronic obstructive airways disease SNOMED Code(s): 439511434 ICD Code: J44.1 - CHRONIC OBSTRUCTIVE PULMONARY DISEASE W (ACUTE) EXACERBATION Status: Acute Current Visit: No (3) Acute on chronic respiratory failure SNOMED Code(s): 88317708 ICD Code: J96.20 - ACUTE AND CHR RESP FAILURE, UNSP W HYPOXIA OR HYPERCAPNIA Status: Acute Current Visit: No Qualifiers: Respiratory failure complication: hypoxia Qualified Code(s): J96.21 - Acute and chronic respiratory failure with hypoxia - Patient Summary/Data Consults: Consultations 10/10/19 10:08 PT Evaluation and Treatment [CONS] Routine - Patient Instructions Diet: Regular Diet as Tolerated Activity: As Tolerated Driving: Do Not Drive Showering/Bathing: May Shower Notify Provider of: Fever, Nausea and/or Vomiting - Discharge Plan *PRESCRIPTION DRUG MONITORING PROGRAM REVIEWED*: Not Applicable *COPY OF PRESCRIPTION DRUG MONITORING REPORT IN PATIENT RODNEY: Not Applicable Prescriptions/Med Rec: Azithromycin 250 mg PO DAILY #4 tablet Melatonin 3 mg PO BEDTIME PRN #30 tablet PRN Reason: Insomnia predniSONE [Prednisone] 40 mg PO DAILY #10 tablet rOPINIRole [Requip] 1 mg PO BEDTIME #30 tab Sertraline [Zoloft] 50 mg PO DAILY #30 tablet Home Medications: Home Meds Fluticasone/Salmeterol [Advair 100-50] 2 puff INH BID PRN 07/28/13 [History] Tiotropium [Spiriva Handihaler] 1 puff INH DAILY 07/28/13 [History] Albuterol [Proventil HFA] 2 puff INH Q4H PRN 03/26/14 [History] Levothyroxine [Synthroid] 50 mcg PO ACBRK 03/26/14 [History] Glucosam/Chond/Collagen/Hyalur [Glucosamine Chondroitin] 2 tab PO DAILY [History] Ipratropium/Albuterol Sulfate [Duoneb 0.5 mg-3 mg/3 ml Soln] 1 ampule INH Q4HR PRN 05/01/14 [History] Multivitamin [Multivitamins] 1 tab PO DAILY 05/01/14 [History] Rolaids 2 tab.chew CHEW ASDIRECTED PRN 05/01/14 [History] atorvaSTATin Calcium [Atorvastatin Calcium] 20 mg PO DAILY 12/21/15 [History] Azithromycin 250 mg PO DAILY #4 tablet 10/11/19 [Rx] Melatonin 3 mg PO BEDTIME PRN #30 tablet 10/11/19 [Rx] Sertraline [Zoloft] 50 mg PO DAILY #30 tablet 10/11/19 [Rx] predniSONE [Prednisone] 40 mg PO DAILY #10 tablet 10/11/19 [Rx] rOPINIRole [Requip] 1 mg PO BEDTIME #30 tab 10/11/19 [Rx] Oxygen Therapy Mode: Nasal Cannula (3-5 L) Maintain SpO2% greater than: 88 Forms: ED Department Discharge Referrals: PCP,Unobtain [Primary Care Provider] - - Discharge Summary/Plan Comment DC Time >30 min.: Yes - General Info Date of Service: 10/11/19 Admission Dx/Problem (Free Text: Admission Diagnosis/Problem Admission Diagnosis/Problem COPD, Severe chronic obstructive pulmonary disease Functional Status: Reports: Pain Controlled - Review of Systems General: Reports: No Symptoms HEENT: Reports: No Symptoms Pulmonary: Reports: No Symptoms Cardiovascular: Reports: No Symptoms Gastrointestinal: Reports: No Symptoms Genitourinary: Reports: No Symptoms Musculoskeletal: Reports: No Symptoms Skin: Reports: No Symptoms Neurological: Reports: No Symptoms Psychiatric: Reports: No Symptoms - Patient Data Vitals - Most Recent: Last Vital Signs Temp 98.2 F 10/11/19 08:00 Pulse 111 H 10/11/19 08:00 Resp 22 H 10/11/19 08:00 BP 113/60 10/11/19 08:00 Pulse Ox 92 L 10/11/19 08:00 Weight - Most Recent: 99 lb 8 oz I&O - Last 24 hours: Intake & Output 10/10/19 10/11/19 10/11/19 22:59 06:59 14:59 Intake Total 240 200 240 Output Total 150 Balance 90 200 240 Lab Results - Last 24 hrs: Laboratory Results - last 24 hr 10/11/19 10/11/19 Range/Units 06:15 06:15 PT 31.3 H (9.0-12.0) SEC INR 3.3 H (0.9-1.2) Sodium 138 (135-145) mmol/L Potassium 4.8 D (3.6-5.0) mmol/L Chloride 97 L (101-111) mmol/L Carbon Dioxide 35.0 H (21.0-31.0) mmol/L Anion Gap 10.8 BUN 17 (7-18) mg/dL Creatinine 0.5 L (0.6-1.3) mg/dL Est Cr Clr Drug Dosing 67.13 mL/min Estimated GFR (MDRD) > 60 Glucose 148 H (74-105) mg/dL Calcium 8.4 (8.4-10.2) mg/dl Med Orders - Current: Current Medications Acetaminophen (Tylenol) 650 mg PO Q4H PRN PRN Reason: Pain (mild 1-3 )/fever Albuterol (Proventil Hfa) 0 gm INH Q4H PRN PRN Reason: Shortness of Breath Albuterol/Ipratropium (Duoneb 3.0-0.5 Mg/3 Ml) 3 ml NEB Q4HRRT [facility] Last Admin: 10/11/19 07:46 Dose: 3 ml Albuterol/Ipratropium (Duoneb 3.0-0.5 Mg/3 Ml) 3 ml NEB Q4HRRT PRN PRN Reason: Wheezing/SOB Atorvastatin Calcium (Lipitor) 20 mg PO DAILY [facility] Last Admin: 10/11/19 08:43 Dose: 20 mg Docusate Sodium (Colace) 100 mg PO DAILY PRN PRN Reason: Constipation Azithromycin 500 mg/ Sodium (Chloride) 250 mls @ 250 mls/hr IV Q24H [facility] Last Admin: 10/10/19 17:31 Dose: 125 mls/hr Levothyroxine Sodium (Synthroid) 50 mcg PO ACBRK [facility] Last Admin: 10/11/19 06:04 Dose: 50 mcg Magnesium Hydroxide (Milk Of Magnesia) 30 ml PO BID PRN PRN Reason: Constipation Melatonin (Melatonin) 3 mg PO BEDTIME PRN PRN Reason: Insomnia Last Admin: 10/10/19 22:29 Dose: 3 mg Methylprednisolone Sodium Succinate (Solu-Medrol) 40 mg IVPUSH Q8H [facility] Last Admin: 10/11/19 06:06 Dose: 40 mg Miscellaneous Information (Remove Patch) 1 ea TRDERM DAILY [facility] Last Admin: 10/11/19 08:46 Dose: 1 ea Mometasone Furoate/Formoterol Fumar (Dulera 100-5 Mcg) 2 puff IH BIDRT [facility] Last Admin: 10/11/19 08:43 Dose: 2 puff Nicotine (Habitrol) 14 mg TRDERM DAILY [facility] Last Admin: 10/11/19 08:43 Dose: 14 mg No Warfarin Today () 0 each PO ONETIME ONE Stop: 10/11/19 14:01 Potassium Chloride (Klor-Con 10) 40 meq PO BEDTIME [facility] Last Admin: 10/10/19 20:48 Dose: 40 meq Sertraline HCl (Zoloft) 50 mg PO DAILY [facility] Sodium Chloride (Saline Flush) 10 ml FLUSH ASDIRECTED PRN PRN Reason: Keep Vein Open Last Admin: 10/11/19 06:05 Dose: 10 ml Tiotropium [place] (Spiriva Handihaler) 18 mcg INH DAILYRT [facility] Last Admin: 10/11/19 08:43 Dose: 18 mcg Warfarin Sodium (Pharmacy To Dose - Warfarin) 0 dose .XX ASDIRECTED [facility] Zolpidem Tartrate (Ambien) 5 mg PO BEDTIME PRN PRN Reason: Anxiety Last Admin: 10/10/19 20:48 Dose: 5 mg Discontinued Medications Albuterol/Ipratropium (Duoneb 3.0-0.5 Mg/3 Ml) 3 ml NEB ONETIME ONE Stop: 10/09/19 13:02 Last Admin: 10/09/19 13:26 Dose: 3 ml Albuterol/Ipratropium (Duoneb 3.0-0.5 Mg/3 Ml) 3 ml NEB ONETIME ONE Stop: 10/09/19 14:43 Last Admin: 10/09/19 15:06 Dose: 3 ml Albuterol/Ipratropium (Duoneb 3.0-0.5 Mg/3 Ml) 3 ml INH Q4H PRN PRN Reason: Shortness of Breath Last Admin: 10/10/19 06:40 Dose: 3 ml Albuterol/Ipratropium (Duoneb 3.0-0.5 Mg/3 Ml) 3 ml INH Q4HRRT PRN PRN Reason: Wheezing/SOB Methylprednisolone Sodium Succinate (Solu-Medrol) 125 mg IVPUSH ONETIME ONE Stop: 10/09/19 14:43 Last Admin: 10/09/19 15:22 Dose: 125 mg Mometasone Furoate/Formoterol Fumar (Dulera 100-5 Mcg) 2 puff IH BID PRN PRN Reason: CONGESTION No Warfarin Today* (*) 0 each .XX ONETIME ONE Stop: 10/10/19 14:01 Last Admin: 10/10/19 15:15 Dose: Not Given Sertraline HCl (Zoloft) 25 mg PO DAILY [facility] Last Admin: 10/10/19 08:03 Dose: 25 mg - Exam Quality Assessment: Reports: Supplemental Oxygen, DVT Prophylaxis General: Reports: Alert, Oriented HEENT: Reports: Pupils Equal, Pupils Reactive, EOMI, Mucous Membr. Moist/Foster Neck: Reports: Supple Lungs: Reports: Clear to Auscultation, Normal Respiratory Effort Cardiovascular: Reports: Regular Rate, Regular Rhythm GI/Abdominal Exam: Normal Bowel Sounds, Soft, Non-Tender, No Organomegaly, No Distention, No Abnormal Bruit, No Mass, Pelvis Stable (Female) Exam: Normal External Exam, Normal Speculum Exam, Normal Bimanual Exam Rectal (Female) Exam: Normal Exam, Normal Rectal Tone Back Exam: Reports: Normal Inspection, Full Range of Motion Extremities: Normal Inspection, Normal Range of Motion, Non-Tender, No Pedal Edema, Normal Capillary Refill Skin: Reports: Warm, Dry, Intact Wound/Incisions: Reports: Healing Well Neurological: Reports: No New Focal Deficit Psy/Mental Status: Reports: Alert, Normal Affect, Normal Mood
[2019-10-11] MEDS ORDERED: Sertraline 50 MG Tab PO SCH (11:00)
== END 2019-10-11 11:20 | disposition home health service (06) | DRG 190 ==
LOC: DL.ED 12:33 → DL.MS 15:27
PROVIDERS: ADMIT Student in an Organized Health Care Education/Training Program; ATTEND Student in an Organized Health Care Education/Training Program
DX: J44.1 Chronic obstructive pulmonary disease with (acute) exacerbation (principal); J96.21 Acute and chronic respiratory failure with hypoxia; F03.91 Unspecified dementia, unspecified severity, with behavioral disturbance; F03.90 Unspecified dementia, unspecified severity, without behavioral disturbance, psychotic disturbance, mood disturbance, and anxiety; H54.7 Unspecified visual loss; H91.90 Unspecified hearing loss, unspecified ear; E78.00 Pure hypercholesterolemia, unspecified; K21.9 Gastro-esophageal reflux disease without esophagitis; M19.90 Unspecified osteoarthritis, unspecified site; F32.9 Major depressive disorder, single episode, unspecified; E55.9 Vitamin D deficiency, unspecified; H26.9 Unspecified cataract; F17.210 Nicotine dependence, cigarettes, uncomplicated; E87.6 Hypokalemia; R79.1 Abnormal coagulation profile; Z86.73 Personal history of transient ischemic attack (TIA), and cerebral infarction without residual deficits; F41.9 Anxiety disorder, unspecified; Z99.81 Dependence on supplemental oxygen; Z79.51 Long term (current) use of inhaled steroids; Z90.89 Acquired absence of other organs; Z90.49 Acquired absence of other specified parts of digestive tract; E03.9 Hypothyroidism, unspecified; E61.1 Iron deficiency; D64.9 Anemia, unspecified; F17.200 Nicotine dependence, unspecified, uncomplicated; Z79.01 Long term (current) use of anticoagulants; Z79.890 Hormone replacement therapy; Z79.899 Other long term (current) drug therapy
CPT/HCPCS: 36415; 70450; 71045; 71250; 80053; 80305; 80307; 81001; 82140; 83605; 83880; 84443; 85025; 85610; 93005 ×2; 93010; 94640 ×2; 96374; 99284; 99285; J2930; 80048; 97162-GP; A9270-GY; J0456; J2920; J7050; J7620-GY

== ENCOUNTER 2019-12-31 08:05 | Inpatient (IN) | payer MEDICARE, OTHER ==
[2019-12-31] MEDS ORDERED: Piperacillin/Tazobactam 3.375 GM in Sodium Chloride 0.9% 100 ML IV ONE (08:10)
[2019-12-31] MEDS ORDERED: Albuterol/Ipratropium 3.0-0.5 MG/3 ML Neb Soln NEB ONE (08:10)
[2019-12-31] MEDS ORDERED: methylPREDNISolone Sodium Succinate 125 MG/2 ML SDV IVPUSH ONE (08:10)
--- NOTE | 2019-12-31 08:10 | EDM.PDOC ---
ED HPI GENERAL MEDICAL PROBLEM - General Chief Complaint: Respiratory Problem Stated Complaint: COPD Time Seen by Provider: 12/31/19 08:09 Source of Information: Reports: EMS, Old Records, RN, RN Notes Reviewed History Limitations: Reports: Altered Mental Status (Advanced dementia) - History of Present Illness INITIAL COMMENTS - FREE TEXT/NARRATIVE: Pt arrives to ER from home by [facility] after called 911 due to pt having low oxygen saturation and COPD. She is on continuous supplemental home oxygen at 3L/min. via NC. Today he had to turn her up to 5L/min. When EMS arrived she was at 71% with 5L/min. on NC, they placed her on a NRB at 15L and her oxygen saturation improved to 100%. Upon arrival to the ER nasal cannula placed at 3L and she has remained at 100%. Poor historian due to dementia, denies pain or cough. says they haven't traveled, been around anyone who has been sick and she hasn't left the house for over 2 months (since being discharged from the hospital in 2019). Pt has advanced dementia and cannot answer most questions. states pt is DNR/DNI status. Onset: Unknown/Unsure Duration: Chronic, Getting Worse Location: Reports: Chest, Generalized Severity: Severe Improves with: Reports: None Worsens with: Reports: None Associated Symptoms: Reports: No Other Symptoms - Related Data Allergies Allergy/AdvReac Type Severity Reaction Status Date / Time No Known Allergies Allergy Verified 10/09/19 16:08 Home Meds: Home Meds Fluticasone/Salmeterol [Advair 100-50] 2 puff INH BID PRN 07/28/13 [History] Tiotropium [Spiriva Handihaler] 1 puff INH DAILY 07/28/13 [History] Albuterol [Proventil HFA] 2 puff INH Q4H PRN 03/26/14 [History] Levothyroxine [Synthroid] 50 mcg PO ACBRK 03/26/14 [History] Glucosam/Chond/Collagen/Hyalur [Glucosamine Chondroitin] 2 tab PO DAILY [History] Ipratropium/Albuterol Sulfate [Duoneb 0.5 mg-3 mg/3 ml Soln] 1 ampule INH Q4HR PRN 05/01/14 [History] Multivitamin [Multivitamins] 1 tab PO DAILY 05/01/14 [History] Rolaids 2 tab.chew CHEW ASDIRECTED PRN 05/01/14 [History] atorvaSTATin Calcium [Atorvastatin Calcium] 20 mg PO DAILY 12/21/15 [History] Azithromycin 250 mg PO DAILY #4 tablet 10/11/19 [Rx] Melatonin 3 mg PO BEDTIME PRN #30 tablet 10/11/19 [Rx] Sertraline [Zoloft] 50 mg PO DAILY #30 tablet 10/11/19 [Rx] predniSONE [Prednisone] 40 mg PO DAILY #10 tablet 10/11/19 [Rx] rOPINIRole [Requip] 1 mg PO BEDTIME #30 tab 10/11/19 [Rx] LORazepam [Ativan] 0.5 mg PO PRN 12/31/19 [History] Warfarin [Coumadin] 5 mg PO ASDIRECTED 12/31/19 [History] Past Medical History HEENT History: Reports: Cataract, Hard of Hearing, Impaired Vision, Other (See Below) Other HEENT History: very early cataracts Cardiovascular History: Reports: Afib (with RVR, on chronic anticoagulation), High Cholesterol Respiratory History: Reports: Asthma, Bronchitis, Recurrent, COPD, SOB 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: Reports: GERD 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 CONTROL BOARD OPERATOR History: 3 NVD Musculoskeletal History: Reports: Arthritis, Fracture, Other (See Below) Other Musculoskeletal History: history of fractured wrist (right), fractured clavicle Neurological History: Reports: CVA Psychiatric History: Reports: Anxiety, Dementia, Depression, Hallucinations Endocrine/Metabolic History: Reports: Hypothyroidism, Vitamin D Deficiency Hematologic History: Reports: Anemia, Iron Deficiency Immunologic History: Reports: None Oncologic (Cancer) History: Reports: None - Past Surgical History HEENT Surgical History: Reports: Tonsillectomy GI Surgical History: Reports: Appendectomy Female Surgical History: Reports: D&C Social & Family History - Family History Family Medical History: Noncontributory Respiratory: Reports: TB - Tobacco Use Smoking Status *Q: Current Every Day Smoker Tobacco Use Within Last Twelve Months: Cigarettes Years of Tobacco use: 60 Packs/Tins Daily: 1 - Caffeine Use Caffeine Use: Reports: Coffee Other Caffeine Use: 1-2 pots/day - Living Situation & Occupation Living situation: Reports: with Spouse Occupation: Retired ED ROS GENERAL - Review of Systems Review Of Systems: Unable To Obtain Reason Not Obtained: Lethargic, advanced dementia ED EXAM, GENERAL - Physical Exam Exam: See Below Exam Limited By: Altered Mental Status (Advanced dementia) General Appearance: No Apparent Distress, Lethargic, Thin Nose: Normal Inspection, No Blood Throat/Mouth: Normal Lips, No Airway Compromise Head: Atraumatic, Normocephalic Neck: Normal Inspection, Non-Tender, Full Range of Motion Respiratory/Chest: No Respiratory Distress, No Accessory Muscle Use, Chest Non- Tender, Decreased Breath Sounds, Crackles, Wheezing, Prolonged Expiration. No: Rales, Rhonchi, Stridor Cardiovascular: Regular Rate, Rhythm, No Edema GI/Abdominal: Normal Bowel Sounds, Soft, Non-Tender, No Distention Extremities: Normal Inspection, Normal Range of Motion, Non-Tender Neurological: Confused, Disoriented, Other (Advanced dementia) Psychiatric: Depressed Mood, Flat Affect Skin Exam: Warm, Dry, Intact EKG INTERPRETATION EKG Date: 12/31/19 Time: 08:05 Rhythm: Other (SR with PVC) Rate (Beats/Min): 95 [place]: Normal P-Wave: Enlarged (Biatrial abnormalities) QRS: Normal ST-T: Normal QT: Normal Comparison: No Change Course - Vital Signs Last Recorded V/S: Last Vital Signs Temp 100.0 F 12/31/19 08:12 Pulse 94 12/31/19 08:12 Resp 16 12/31/19 08:12 BP 147/59 H 12/31/19 08:12 Pulse Ox 100 12/31/19 08:12 - Orders/Labs/Meds Orders: Active Orders 24 hr Category Date Time Status EKG 12 Lead [EKG Documentation Completion] [RC] STAT Care 12/31/19 08:11 Active Peripheral IV Care [RC] . DIRECTED Care 12/31/19 08:12 Active RT Aerosol Therapy [RC] ASDIRECTED Care 12/31/19 08:10 Active Chest 1V Frontal [CR] Stat Exams 12/31/19 08:11 Taken CULTURE BLOOD [BC] Stat Lab 12/31/19 08:17 Received CULTURE BLOOD [BC] Stat Lab 12/31/19 09:05 Received UA RFX DARLENE AND CULT IF INDIC [URIN] Stat Lab 12/31/19 08:11 Ordered Sodium Chloride 0.9% [Saline Flush] Med 12/31/19 08:10 Active 10 ml FLUSH ASDIRECTED PRN Blood Culture x2 Reflex Set [OM.PC] Stat Ot 12/31/19 08:11 Ordered Isolation [COMM] Routine [facility] 12/31/19 08:12 Active Peripheral IV Insertion Adult [OM.PC] Stat Ot 12/31/19 08:11 Ordered Medication Orders Sodium Chloride (Saline Flush) 10 ml FLUSH ASDIRECTED PRN PRN Reason: Keep Vein Open Labs: Laboratory Tests 12/31/19 12/31/19 12/31/19 Range/Units 08:17 08:17 08:17 WBC 8.4 (5.0-10.0) 10^3/uL RBC 4.12 L (4.2-5.4) 10^6/uL Hgb 12.2 (12.0-16.0) g/dL Hct 39.4 (37.0-47.0) % MCV 95.6 (80-100) fL MCH 29.6 (27.0-34.0) pg MCHC 31.0 L (33.0-35.0) g/dL Plt Count 113 L (150-450) 10^3/uL Neut % (Auto) 78.7 H (42.2-75.2) % Lymph % (Auto) 14.3 L (20.5-50.1) % [place] % (Auto) 6.7 (2-8) % Eos % (Auto) 0.1 L (1.0-3.0) % Baso % (Auto) 0.2 (0.0-1.0) % PT 15.8 H D (9.0-12.0) SEC INR 1.7 H (0.9-1.2) Sodium 140 (136-145) mmol/L Potassium 3.4 L (3.5-5.1) mmol/L Chloride 99 (98-107) mmol/L Carbon Dioxide 43 H* (21-32) mmol/L Anion Gap 1.4 L (7-13) mEq/L BUN 16 (7-18) mg/dL Creatinine 0.55 (0.55-1.02) mg/dL Est Cr Clr Drug Dosing TNP Estimated GFR (MDRD) > 60 BUN/Creatinine Ratio 29.1 (No establ ref range) Glucose 107 H (74-99) mg/dL Lactic Acid (0.4-2.0) mmol/L Calcium 8.6 (8.5-10.1) mg/dL Total Bilirubin 0.7 (0.2-1.0) mg/dL AST 20 (15-37) U/L ALT 28 (14-59) U/L Alkaline Phosphatase 54 (46-116) U/L Total Protein 6.7 (6.4-8.2) g/dL Albumin 3.5 (3.4-5.0) g/dL Globulin 3.2 Albumin/Globulin Ratio 1.1 SARS-CoV-2 RNA (RT-PCR) (NEGATIVE) 12/31/19 12/31/19 Range/Units 08:17 08:23 WBC (5.0-10.0) 10^3/uL RBC (4.2-5.4) 10^6/uL Hgb (12.0-16.0) g/dL Hct (37.0-47.0) % MCV (80-100) fL MCH (27.0-34.0) pg MCHC (33.0-35.0) g/dL Plt Count (150-450) 10^3/uL Neut % (Auto) (42.2-75.2) % Lymph % (Auto) (20.5-50.1) % [place] % (Auto) (2-8) % Eos % (Auto) (1.0-3.0) % Baso % (Auto) (0.0-1.0) % PT (9.0-12.0) SEC INR (0.9-1.2) Sodium (136-145) mmol/L Potassium (3.5-5.1) mmol/L Chloride (98-107) mmol/L Carbon Dioxide (21-32) mmol/L Anion Gap (7-13) mEq/L BUN (7-18) mg/dL Creatinine (0.55-1.02) mg/dL Est Cr Clr Drug Dosing Estimated GFR (MDRD) BUN/Creatinine Ratio (No establ ref range) Glucose (74-99) mg/dL Lactic Acid 0.6 (0.4-2.0) mmol/L Calcium (8.5-10.1) mg/dL Total Bilirubin (0.2-1.0) mg/dL AST (15-37) U/L ALT (14-59) U/L Alkaline Phosphatase (46-116) U/L Total Protein (6.4-8.2) g/dL Albumin (3.4-5.0) g/dL Globulin Albumin/Globulin Ratio SARS-CoV-2 RNA (RT-PCR) Negative (NEGATIVE) Meds: Medications Generic Name Dose Route Start Last Admin Trade Name Freq PRN Reason Stop Dose Admin Sodium Chloride 10 ml 12/31/19 08:10 Saline Flush FLUSH ASDIRECTED PRN Keep Vein Open Discontinued Medications Generic Name Dose Route Start Last Admin Trade Name Freq PRN Reason Stop Dose Admin Albuterol/Ipratropium 3 ml 12/31/19 08:10 Duoneb 3.0-0.5 Mg/3 Ml NEB 12/31/19 08:11 ONETIME ONE Piperacillin Sod/Tazobactam 100 mls @ 200 mls/hr 12/31/19 08:10 Sod 3.375 gm/ Sodium Chloride IV 12/31/19 08:39 ONETIME ONE Methylprednisolone Sodium Succinate 125 mg 12/31/19 08:10 Solu-Medrol IVPUSH 12/31/19 08:11 ONETIME ONE - Radiology Interpretation Free Text/Narrative:: [facility] Final Radiology Report Call: [phone] assistance Online chat: [email or web address] Name: CHRISTIAN HANSEN Age: 79Years F Date: 12/31/2019 SSN: -- : [id number] Study: XR CHEST 1 VIEW FRONTAL Requesting Physician: SCOTT REDD Images: 1 Addl Studies: Provided Clinical History: fever, hypoxia, COPD Contrast: Contrast Medium: Contrast Amount: Contrast Method: CONFIDENTIALITY STATEMENT This report is intended only for use by the referring physician, and only in accordance with law. If you received this in error, call [phone]. Page 1 of 1 PROCEDURE INFORMATION: Exam: XR Chest, 1 View Exam date and time: 12/31/2019 9:22 AM Age: 79 years old Clinical indication: Fever and other: Hypoxia, copd; Additional info: Fever, hypoxia, copd TECHNIQUE: Imaging protocol: XR of the chest Views: 1 view. COMPARISON: CR Chest 1V Frontal 10/09/2019 1:09 PM FINDINGS: Lungs: The lung apices are not included. There is similar blunting of the costophrenic angles, likely relating to scarring. The lungs are again hyperinflated. There is increased airspace opacity at the right base. Coarsening of the lung markings elsewhere bilaterally appears similar. Pleural space: Unremarkable. No pleural effusion. No pneumothorax. Heart/Mediastinum: The cardiomediastinal silhouette is fairly stable in appearance. Bones/joints: Degenerative changes again involve the spine. IMPRESSION: Hyperinflation, as on 10/09/19, with increased right basilar airspace opacity, could reflect pneumonia. Thank you for allowing us to participate in the care of your patient. Dictated and Authenticated by: Ned Lyon MD 12/31/2019 9:35 AM Central Time ([place] & [place]) - Re-Assessments/Exams Free Text/Narrative Re-Assessment/Exam: 12/31/19 09:39 Plan to admit pt to Dr. Ennis for acute on chronic respiratory failure due to COPD exacerbation with increased oxygen demand, and temp. of 100.0F with non- elevated WBC, chest x-ray read as possible early RLL infiltrate. Departure - Departure Time of Disposition: 09:40 (admitted to Dr. Ennis) Disposition: Admitted As Inpatient 68 Condition: Poor Clinical Impression: Acute exacerbation of chronic obstructive pulmonary disease (COPD) Acute on chronic respiratory failure Qualifiers: Respiratory failure complication: hypoxia and hypercapnia Qualified Code(s): J96.21 - Acute and chronic respiratory failure with hypoxia; J96.22 - Acute and chronic respiratory failure with hypercapnia - Discharge Information *PRESCRIPTION DRUG MONITORING PROGRAM REVIEWED*: Not Applicable *COPY OF PRESCRIPTION DRUG MONITORING REPORT IN PATIENT RODNEY: Not Applicable Forms: ED Department Discharge Sepsis Event Note - Focused Exam Vital Signs: Vital Signs Temp Pulse Resp BP Pulse Ox 12/31/19 08:12 100.0 F 94 16 147/59 H 100 Date Exam was Performed: 12/31/19 Time Exam was Performed: 09:38 - My Orders Last 24 Hours: My Active Orders 12/31/19 08:10 RT Aerosol Therapy [RC] ASDIRECTED Sodium Chloride 0.9% [Saline Flush] 10 ml FLUSH ASDIRECTED PRN 12/31/19 08:11 EKG 12 Lead [EKG Documentation Completion] [RC] STAT Chest 1V Frontal [CR] Stat UA RFX DARLENE AND CULT IF INDIC [URIN] Stat Blood Culture x2 Reflex Set [OM.PC] Stat Peripheral IV Insertion Adult [OM.PC] Stat 12/31/19 08:12 Peripheral IV Care [RC] . DIRECTED Isolation [COMM] Routine 12/31/19 08:17 CULTURE BLOOD [BC] Stat 12/31/19 09:05 CULTURE BLOOD [BC] Stat - Assessment/Plan Last 24 Hours: My Active Orders 12/31/19 08:10 RT Aerosol Therapy [RC] ASDIRECTED Sodium Chloride 0.9% [Saline Flush] 10 ml FLUSH ASDIRECTED PRN 12/31/19 08:11 EKG 12 Lead [EKG Documentation Completion] [RC] STAT Chest 1V Frontal [CR] Stat UA RFX DARLENE AND CULT IF INDIC [URIN] Stat Blood Culture x2 Reflex Set [OM.PC] Stat Peripheral IV Insertion Adult [OM.PC] Stat 12/31/19 08:12 Peripheral IV Care [RC] . DIRECTED Isolation [COMM] Routine 12/31/19 08:17 CULTURE BLOOD [BC] Stat 12/31/19 09:05 CULTURE BLOOD [BC] Stat
[2019-12-31 08:45] LABS: ANION GAP 1.4 mEq/L (7-13); CHLORIDE,CL 99 mmol/L (98-107); SODIUM,NA 140 mmol/L (136-145)
[2019-12-31] MEDS: Sodium Chloride 0.9% 10 ML Syringe FLUSH PRN ×4 (09:40→21:53)
--- NOTE | 2019-12-31 10:44 | PCM.HP ---
H&P History of Present Illness - General Date of Service: 12/31/19 Source of Information: Patient History Limitations: Reports: No Limitations - History of Present Illness Initial Comments - Free Text/Narative: Cade is 79 y/o F wit PMH of Advanced dementia, COPD on home oxygen 3 L, h/o CVA on chronic anticoagulation with warfarin who was brought to the ED by [facility] after called 911 due to patient having low oxygen saturation and SOB. Patient unable to provide adequate history due to patient factor. History from and ER provider. As per patient had new onset of hallucination, SOB and hypoxia this morning requiring increased supplemental oxygen. He had to turn her oxygen up to 5L/min. When EMS arrived she was at 71% with 5L/ min. on NC, they placed her on a NRB at 15L and her oxygen saturation improved to 100%. Upon arrival to the ER nasal cannula placed at 3L and she has remained at 100%. She denies cough, fever, chills. denies recent travel or ill contact. She was screened for COVID-19 and influenza in the ED that was negative. Patient denies headache, fever, chills. She is alert and oriented to only self currently. Denies dysuria, increased urinary frequency, diarrhea, nausea, vomiting, abdominal pain. She has no cough, sore throat, runny nose. Cxr from the ED was similar to previous. Of note patient was admitted in July/2020 with similar presentation. Patient requesting her to be discharge with home hospice. Improves with: Reports: None Worsens with: Reports: None Associated Symptoms: Reports: No Other Symptoms - Related Data Allergies/Adverse Reactions: Allergies Allergy/AdvReac Type Severity Reaction Status Date / Time No Known Allergies Allergy Verified 12/31/19 11:05 Home Medications: Home Meds Fluticasone/Salmeterol [Advair 100-50] 2 puff INH BID PRN 07/28/13 [History] Tiotropium [Spiriva Handihaler] 1 puff INH DAILY 07/28/13 [History] Albuterol [Proventil HFA] 2 puff INH Q4H PRN 03/26/14 [History] Levothyroxine [Synthroid] 50 mcg PO ACBRK 03/26/14 [History] Glucosam/Chond/Collagen/Hyalur [Glucosamine Chondroitin] 2 tab PO DAILY [History] Ipratropium/Albuterol Sulfate [Duoneb 0.5 mg-3 mg/3 ml Soln] 1 ampule INH Q4HR PRN 05/01/14 [History] Multivitamin [Multivitamins] 1 tab PO DAILY 05/01/14 [History] Rolaids 2 tab.chew CHEW ASDIRECTED PRN 05/01/14 [History] atorvaSTATin Calcium [Atorvastatin Calcium] 20 mg PO DAILY 12/21/15 [History] Melatonin 3 mg PO BEDTIME PRN #30 tablet 10/11/19 [Rx] Sertraline [Zoloft] 50 mg PO DAILY #30 tablet 10/11/19 [Rx] predniSONE [Prednisone] 40 mg PO DAILY #10 tablet 10/11/19 [Rx] rOPINIRole [Requip] 1 mg PO BEDTIME #30 tab 10/11/19 [Rx] LORazepam [Ativan] 0.5 mg PO PRN 12/31/19 [History] Warfarin [Coumadin] 5 mg PO ASDIRECTED 12/31/19 [History] Past Medical History HEENT History: Reports: Cataract, Hard of Hearing, Impaired Vision, Other (See Below) Other HEENT History: very early cataracts Cardiovascular History: Reports: Afib (with RVR, on chronic anticoagulation), High Cholesterol Respiratory History: Reports: Asthma, Bronchitis, Recurrent, COPD, SOB 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: Reports: GERD 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: 3 NVD Musculoskeletal History: Reports: Arthritis, Fracture, Other (See Below) Other Musculoskeletal History: history of fractured wrist (right), fractured clavicle Neurological History: Reports: CVA Psychiatric History: Reports: Anxiety, Dementia, Depression, Hallucinations Endocrine/Metabolic History: Reports: Hypothyroidism, Vitamin D Deficiency Hematologic History: Reports: Anemia, Iron Deficiency Immunologic History: Reports: None Oncologic (Cancer) History: Reports: None - Past Surgical History HEENT Surgical History: Reports: Tonsillectomy GI Surgical History: Reports: Appendectomy Female Surgical History: Reports: D&C Social & Family History - Family History Family Medical History: Noncontributory Respiratory: Reports: TB - Tobacco Use Smoking Status *Q: Current Every Day Smoker Years of Tobacco use: 60 Packs/Tins Daily: 1 Used Tobacco, but Quit: No - Caffeine Use Caffeine Use: Reports: Coffee Other Caffeine Use: 1-2 pots/day - Recreational Drug Use Recreational Drug Use: No - Living Situation & Occupation Living situation: Reports: with Spouse Occupation: Retired H&P Review of Systems - Review of Systems: Review Of Systems: See Below General: Reports: No Symptoms HEENT: Reports: No Symptoms Pulmonary: Reports: No Symptoms Cardiovascular: Reports: No Symptoms Gastrointestinal: Reports: No Symptoms Genitourinary: Reports: No Symptoms Musculoskeletal: Reports: No Symptoms Skin: Reports: No Symptoms Psychiatric: Reports: No Symptoms Neurological: Reports: No Symptoms Hematologic/Lymphatic: Reports: No Symptoms Immunologic: Reports: No Symptoms Exam - Exam Exam: See Below - Vital Signs Vital Signs: Last Vital Signs Temp 97.7 F 12/31/19 10:36 Pulse 87 12/31/19 10:36 Resp 24 H 12/31/19 10:36 BP 119/57 L 12/31/19 10:36 Pulse Ox 89 L 12/31/19 10:36 Weight: 87 lb 14.4 oz - Exam Quality Assessment: Supplemental Oxygen, DVT Prophylaxis General: Alert, Oriented, 4 HEENT: PERRLA, Hearing Intact, Mucosa Moist & [place], Nares Patent, Normal Nasal Septum, Posterior Pharynx Clear, Conjunctiva Clear, EOMI, EACs Clear, TMs Clear Neck: Supple, Trachea Midline, 2 Lungs: Clear to Auscultation, Normal Respiratory Effort Cardiovascular: Regular Rate, Regular Rhythm GI/Abdominal Exam: Normal Bowel Sounds, Soft, Non-Tender, No Organomegaly, No Distention, No Abnormal Bruit, No Mass, Pelvis Stable (Female) Exam: Normal External Exam, Normal Speculum Exam, Normal Bimanual Exam Rectal (Female) Exam: Normal Exam, Normal Rectal Tone Back Exam: Normal Inspection, Full Range of Motion, NT Extremities: Normal Inspection, Normal Range of Motion, Non-Tender, No Pedal Edema, Normal Capillary Refill Skin: Warm, Dry, Intact Neurological: Cranial Nerves Intact, Reflexes Equal Bilateral Neuro Extensive - Mental Status: Alert, Oriented x3, Normal Mood/Affect, Normal Cognition Neuro Extensive - Motor, Sensory, Reflexes: CN II-XII Intact, Normal Gait, Normal Reflexes Psychiatric: Alert, Normal Affect, Normal Mood - Patient Data Lab Results Last 24 hrs: Laboratory Results - last 24 hr 12/31/19 12/31/19 12/31/19 Range/Units 08:17 08:17 08:17 WBC 8.4 (5.0-10.0) 10^3/uL RBC 4.12 L (4.2-5.4) 10^6/uL Hgb 12.2 (12.0-16.0) g/dL Hct 39.4 (37.0-47.0) % MCV 95.6 (80-100) fL MCH 29.6 (27.0-34.0) pg MCHC 31.0 L (33.0-35.0) g/dL Plt Count 113 L (150-450) 10^3/uL Neut % (Auto) 78.7 H (42.2-75.2) % Lymph % (Auto) 14.3 L (20.5-50.1) % [place] % (Auto) 6.7 (2-8) % Eos % (Auto) 0.1 L (1.0-3.0) % Baso % (Auto) 0.2 (0.0-1.0) % PT 15.8 H D (9.0-12.0) SEC INR 1.7 H (0.9-1.2) Sodium 140 (136-145) mmol/L Potassium 3.4 L (3.5-5.1) mmol/L Chloride 99 (98-107) mmol/L Carbon Dioxide 43 H* (21-32) mmol/L Anion Gap 1.4 L (7-13) mEq/L BUN 16 (7-18) mg/dL Creatinine 0.55 (0.55-1.02) mg/dL Est Cr Clr Drug Dosing TNP Estimated GFR (MDRD) > 60 BUN/Creatinine Ratio 29.1 (No establ ref range) Glucose 107 H (74-99) mg/dL Lactic Acid (0.4-2.0) mmol/L Calcium 8.6 (8.5-10.1) mg/dL Total Bilirubin 0.7 (0.2-1.0) mg/dL AST 20 (15-37) U/L ALT 28 (14-59) U/L Alkaline Phosphatase 54 (46-116) U/L Total Protein 6.7 (6.4-8.2) g/dL Albumin 3.5 (3.4-5.0) g/dL Globulin 3.2 Albumin/Globulin Ratio 1.1 SARS-CoV-2 RNA (RT-PCR) (NEGATIVE) 12/31/19 12/31/19 Range/Units 08:17 08:23 WBC (5.0-10.0) 10^3/uL RBC (4.2-5.4) 10^6/uL Hgb (12.0-16.0) g/dL Hct (37.0-47.0) % MCV (80-100) fL MCH (27.0-34.0) pg MCHC (33.0-35.0) g/dL Plt Count (150-450) 10^3/uL Neut % (Auto) (42.2-75.2) % Lymph % (Auto) (20.5-50.1) % [place] % (Auto) (2-8) % Eos % (Auto) (1.0-3.0) % Baso % (Auto) (0.0-1.0) % PT (9.0-12.0) SEC INR (0.9-1.2) Sodium (136-145) mmol/L Potassium (3.5-5.1) mmol/L Chloride (98-107) mmol/L Carbon Dioxide (21-32) mmol/L Anion Gap (7-13) mEq/L BUN (7-18) mg/dL Creatinine (0.55-1.02) mg/dL Est Cr Clr Drug Dosing Estimated GFR (MDRD) BUN/Creatinine Ratio (No establ ref range) Glucose (74-99) mg/dL Lactic Acid 0.6 (0.4-2.0) mmol/L Calcium (8.5-10.1) mg/dL Total Bilirubin (0.2-1.0) mg/dL AST (15-37) U/L ALT (14-59) U/L Alkaline Phosphatase (46-116) U/L Total Protein (6.4-8.2) g/dL Albumin (3.4-5.0) g/dL Globulin Albumin/Globulin Ratio SARS-CoV-2 RNA (RT-PCR) Negative (NEGATIVE) Result Diagrams: 12/31/19 08:17 12/31/19 08:17 [place] Results Last 24 hrs: Microbiology 12/31/19 08:23 Influenza Type A Antigen Screen - Final Nasal, Unspecified NEGATIVE INFLUENZA A VIRUS AG REFERENCE RANGE: NEGATIVE Influenza Type B Antigen Screen - Final NEGATIVE INFLUENZA B VIRUS AG REFERENCE RANGE: NEGATIVE - Problem List (1) Acute exacerbation of chronic obstructive airways disease SNOMED Code(s): 280139775 ICD Code: J44.1 - CHRONIC OBSTRUCTIVE PULMONARY DISEASE W (ACUTE) EXACERBATION Status: Acute Current Visit: No (2) Acute exacerbation of chronic obstructive pulmonary disease (COPD) SNOMED Code(s): 823321029 ICD Code: J44.1 - CHRONIC OBSTRUCTIVE PULMONARY DISEASE W (ACUTE) EXACERBATION Status: Acute Current Visit: No (3) Acute on chronic respiratory failure SNOMED Code(s): 32030953 ICD Code: J96.20 - ACUTE AND CHR RESP FAILURE, UNSP W HYPOXIA OR HYPERCAPNIA Status: Acute Current Visit: No Qualifiers: Respiratory failure complication: hypoxia and hypercapnia Qualified Code(s) : J96.21 - Acute and chronic respiratory failure with hypoxia; J96.22 - Acute and chronic respiratory failure with hypercapnia Problem List Initiated/Reviewed/Updated: Yes Orders Last 24hrs: Active Orders 24 hr Category Date Time Status EKG 12 Lead [EKG Documentation Completion] [RC] STAT Care 12/31/19 08:11 Active Peripheral IV Care [RC] . DIRECTED Care 12/31/19 08:12 Active RT Aerosol Therapy [RC] ASDIRECTED Care 12/31/19 08:10 Active Chest 1V Frontal [CR] Stat Exams 12/31/19 08:11 Taken CULTURE BLOOD [BC] Stat Lab 12/31/19 08:17 Received CULTURE BLOOD [BC] Stat Lab 12/31/19 09:05 Received Sodium Chloride 0.9% [Saline Flush] Med 12/31/19 08:10 Active 10 ml FLUSH ASDIRECTED PRN Blood Culture x2 Reflex Set [OM.PC] Stat Oth 12/31/19 08:11 Ordered Isolation [COMM] Routine Oth 12/31/19 08:12 Active Peripheral IV Insertion Adult [OM.PC] Stat Oth 12/31/19 08:11 Ordered Medication Orders Sodium Chloride (Saline Flush) 10 ml FLUSH ASDIRECTED PRN PRN Reason: Keep Vein Open Last Admin: 12/31/19 09:40 Dose: 10 ml Assessment/Plan Comment:: #Acute on chronic hypoxic respiratory failure -Patient presented to the ED with increasing shortness of breath requiring increased supplemental oxygen -Admit to medical floor -Continue supplemental oxygen and wean down as able #COPD exacerbation -Breathing treatment -Solu-Medrol -Azithromycin #Hypokalemia -Replace PO #General diet #Code -DNI/DNR. requesting home hospice -Palliative care consulted
[2019-12-31] MEDS ORDERED: SALMETEROL INH PRN (11:13)
[2019-12-31] MEDS ORDERED: Melatonin 3 MG Tab PO PRN (11:13)
[2019-12-31] MEDS ORDERED: FLUTICASONE INH PRN (11:13)
[2019-12-31] MEDS ORDERED: Albuterol 6.7 GM Inhaler INH PRN (11:13)
[2019-12-31] MEDS ORDERED: Potassium Chloride 10 MEQ Tab.ER PO SCH (12:00)
[2019-12-31] MEDS ORDERED: Warfarin 5 MG Tab PO ONE (14:30)
[2019-12-31] MEDS: Dextrose 5%-0.9% NaCl with KCl 1,000 ML IV SCH (14:47)
[2019-12-31] MEDS ORDERED: LORazepam 0.5 MG Tab PO PRN (18:10)
[2019-12-31] MEDS ORDERED: LORazepam 1 MG Tab PO PRN (19:08)
[2019-12-31] MEDS ORDERED: Azithromycin 500 MG in Sodium Chloride 0.9% 250 ML IV SCH (19:30)
[2019-12-31] MEDS: methylPREDNISolone Sodium Succinate 40 MG/1 ML SDV IVPUSH SCH (20:37)
[2019-12-31] MEDS: rOPINIRole 2 MG Tab PO SCH (20:47)
[2020-01-01] MEDS: Sodium Chloride 0.9% 10 ML Syringe FLUSH PRN ×2 (03:20→03:26)
[2020-01-01] MEDS: methylPREDNISolone Sodium Succinate 40 MG/1 ML SDV IVPUSH SCH ×3 (03:21→18:47)
[2020-01-01] MEDS: Dextrose 5%-0.9% NaCl with KCl 1,000 ML IV SCH ×2 (05:24→18:48)
[2020-01-01] MEDS: Levothyroxine 50 MCG Tab PO SCH (05:53)
[2020-01-01] MEDS: Nicotine 21 MG/24 Hr Patch TRDERM SCH (09:14)
[2020-01-01] MEDS: Tiotropium Inhaler 18 MCG Inhalation Powder Cap Kit of 5 INH SCH (09:16)
[2020-01-01] MEDS: atorvaSTATin 20 MG Tab PO SCH (09:16)
[2020-01-01] MEDS: Multivitamins,Therapeutic Tab PO SCH (09:18)
[2020-01-01] MEDS: Sertraline 50 MG Tab PO SCH (09:18)
[2020-01-01 09:22] LABS: ANION GAP 5.9 mEq/L (7-13); CHLORIDE,CL 102 mmol/L (98-107); SODIUM,NA 141 mmol/L (136-145)
--- NOTE | 2020-01-01 10:58 | PCM.PN ---
- General Info Date of Service: 01/01/20 Subjective Update: Cade is 79 y/o F with PMH of Advanced dementia, COPD on home oxygen 3 L, h/o CVA on chronic anticoagulation with warfarin who was brought to the ED by [facility] after called 911 due to patient having low oxygen saturation and SOB. Cxr was similar to previous. She was admitted for COPD exacerbation. Patient requested patient to be discharge with home hospice. Palliative care was consulted. Today she is doing ok. She is saturating @ 96% on 3 L via NC which is her baseline. Patient remain confused due to advance dementia and unable to provide history. No fever or chills. She is not in respiratory distress. Functional Status: Reports: Pain Controlled - Review of Systems General: Reports: No Symptoms HEENT: Reports: No Symptoms Pulmonary: Reports: No Symptoms Cardiovascular: Reports: No Symptoms Gastrointestinal: Reports: No Symptoms Genitourinary: Reports: No Symptoms Musculoskeletal: Reports: No Symptoms Skin: Reports: No Symptoms Neurological: Reports: No Symptoms Psychiatric: Reports: No Symptoms - Patient Data Vitals - Most Recent: Last Vital Signs Temp 97.7 F 01/01/20 08:01 Pulse 74 01/01/20 08:01 Resp 20 01/01/20 08:01 BP 134/62 01/01/20 08:01 Pulse Ox 96 01/01/20 08:01 Weight - Most Recent: 87 lb 14.4 oz I&O - Last 24 Hours: Intake & Output 12/31/19 01/01/20 01/01/20 22:59 06:59 14:59 Intake Total 1009 906 Output Total 350 Balance 1009 556 Lab Results Last 24 Hours: Laboratory Results - last 24 hr 01/01/20 01/01/20 01/01/20 Range/Units 07:47 08:52 08:52 PT 23.9 H D (9.0-12.0) SEC INR 2.5 H (0.9-1.2) Sodium 141 (136-145) mmol/L Potassium 3.9 (3.5-5.1) mmol/L Chloride 102 (98-107) mmol/L Carbon Dioxide 37 H (21-32) mmol/L Anion Gap 5.9 L (7-13) mEq/L BUN 17 (7-18) mg/dL Creatinine 0.69 (0.55-1.02) mg/dL Est Cr Clr Drug Dosing 42.98 mL/min Estimated GFR (MDRD) > 60 Glucose 193 H (74-99) mg/dL POC Glucose 176 H (83-110) mg/dl Calcium 8.3 L (8.5-10.1) mg/dL Phosphorus 2.3 L (2.6-4.7) mg/dL Magnesium 1.8 (1.8-2.4) mg/dL [place] Results Last 24 Hours: Microbiology 12/31/19 09:05 Aerobic Blood Culture - Preliminary Blood - Venous - Lab Draw NO GROWTH AFTER 1 DAY Anaerobic Blood Culture - Preliminary NO GROWTH AFTER 1 DAY 12/31/19 08:17 Aerobic Blood Culture - Preliminary Blood - Venous NO GROWTH AFTER 1 DAY Anaerobic Blood Culture - Preliminary NO GROWTH AFTER 1 DAY 12/31/19 08:23 Influenza Type A Antigen Screen - Final Nasal, Unspecified NEGATIVE INFLUENZA A VIRUS AG REFERENCE RANGE: NEGATIVE Influenza Type B Antigen Screen - Final NEGATIVE INFLUENZA B VIRUS AG REFERENCE RANGE: NEGATIVE Med Orders - Current: Current Medications Albuterol (Proventil Hfa) 0 gm INH Q4H PRN PRN Reason: Shortness of Breath Last Admin: 12/31/19 17:00 Dose: 2 puff Atorvastatin Calcium (Lipitor) 20 mg PO DAILY [facility] Last Admin: 01/01/20 09:16 Dose: 20 mg Potassium Chloride/Dextrose/Sod Cl (D5 Ns With 20 Meq Kcl) 1,000 mls @ 75 mls/ hr IV ASDIRECTED [facility] Last Admin: 01/01/20 05:24 Dose: 75 mls/hr Azithromycin 500 mg/ Sodium (Chloride) 250 mls @ 250 mls/hr IV Q24H [facility] Last Infusion: 12/31/19 21:54 Dose: Infused Levothyroxine Sodium (Synthroid) 50 mcg PO ACBRK [facility] Last Admin: 01/01/20 05:53 Dose: 50 mcg Lorazepam (Ativan) 1 mg PO Q8H PRN PRN Reason: Agitation Last Admin: 12/31/19 20:52 Dose: 1 mg Melatonin (Melatonin) 3 mg PO BEDTIME PRN PRN Reason: Insomnia Last Admin: 12/31/19 20:51 Dose: 3 mg Methylprednisolone Sodium Succinate (Solu-Medrol) 40 mg IVPUSH Q8H [facility] Last Admin: 05/06/20 03:21 Dose: 40 mg Miscellaneous Information (Remove Patch) 1 ea TRDERM DAILY [facility] Multivitamins (Thera) 1 each PO DAILY [facility] Last Admin: 01/01/20 09:18 Dose: 1 each Nicotine (Habitrol) 21 mg TRDERM DAILY [facility] Last Admin: 01/01/20 09:14 Dose: 21 mg Non-Formulary Medication (Fluticasone/Salmeterol) 2 puff INH BID PRN PRN Reason: Congestion Ropinirole HCl (Requip) 1 mg PO BEDTIME [facility] Last Admin: 12/31/19 20:47 Dose: 1 mg Sertraline HCl (Zoloft) 50 mg PO DAILY [facility] Last Admin: 01/01/20 09:18 Dose: 50 mg Tiotropium [place] (Spiriva Handihaler) 18 mcg INH DAILY [facility] Last Admin: 01/01/20 09:16 Dose: 1 cap Warfarin Sodium (Pharmacy To Dose - Warfarin) 1 dose .XX ASDIRECTED [facility] Warfarin Sodium (Coumadin) 2.5 mg PO ONETIME ONE Stop: 01/01/20 14:01 Discontinued Medications Albuterol/Ipratropium (Duoneb 3.0-0.5 Mg/3 Ml) 3 ml NEB ONETIME ONE Stop: 12/31/19 08:11 Last Admin: 12/31/19 09:42 Dose: 3 ml Piperacillin Sod/Tazobactam (Sod 3.375 gm/ Sodium Chloride) 100 mls @ 200 mls/ hr IV ONETIME ONE Stop: 12/31/19 08:39 Last Admin: 12/31/19 09:40 Dose: 200 mls/hr Lorazepam (Ativan) 0.5 mg PO BEDTIME PRN PRN Reason: Anxiety Methylprednisolone Sodium Succinate (Solu-Medrol) 125 mg IVPUSH ONETIME ONE Stop: 12/31/19 08:11 Last Admin: 12/31/19 09:40 Dose: 125 mg Potassium Chloride (Klor-Con 10) 40 meq PO BID [facility] Last Admin: 12/31/19 13:33 Dose: Not Given Sodium Chloride (Saline Flush) 10 ml FLUSH ASDIRECTED PRN PRN Reason: Keep Vein Open Last Admin: 01/01/20 03:26 Dose: 10 ml Warfarin Sodium (Coumadin) 5 mg PO ONETIME ONE Stop: 12/31/19 14:31 Last Admin: 12/31/19 14:52 Dose: 5 mg - Exam Quality Assessment: Supplemental Oxygen, DVT Prophylaxis General: Alert, Oriented HEENT: Pupils Equal, Pupils Reactive, EOMI, Mucous Membr. Moist/[place] Neck: Supple Lungs: Clear to Auscultation, Normal Respiratory Effort Cardiovascular: Regular Rate, Regular Rhythm GI/Abdominal Exam: Normal Bowel Sounds, Soft, Non-Tender, No Organomegaly, No Distention, No Abnormal Bruit, No Mass, Pelvis Stable (Female) Exam: Normal External Exam, Normal Speculum Exam, Normal Bimanual Exam Back Exam: Normal Inspection, Full Range of Motion Extremities: Normal Inspection, Normal Range of Motion, Non-Tender, No Pedal Edema, Normal Capillary Refill Skin: Warm, Dry, Intact Wound/Incisions: Healing Well Neurological: No New Focal Deficit Psy/Mental Status: Alert, Normal Affect, Normal Mood Sepsis Event Note - Evaluation Sepsis Screening Result: No Definite Risk - Focused Exam Vital Signs: Vital Signs Temp Pulse Resp BP Pulse Ox 01/01/20 08:01 97.7 F 74 20 134/62 96 01/01/20 03:35 97.5 F 83 20 98 01/01/20 01:45 98.2 F 82 22 H 93 L 01/01/20 01:35 75 L 01/01/20 01:30 66 L Date Exam was Performed: 01/01/20 Time Exam was Performed: 10:52 - Problem List & Annotations (1) Acute exacerbation of chronic obstructive airways disease SNOMED Code(s): 510677391 Code(s): J44.1 - CHRONIC OBSTRUCTIVE PULMONARY DISEASE W (ACUTE) EXACERBATION Status: Acute Current Visit: No (2) Acute exacerbation of chronic obstructive pulmonary disease (COPD) SNOMED Code(s): 603125136 Code(s): J44.1 - CHRONIC OBSTRUCTIVE PULMONARY DISEASE W (ACUTE) EXACERBATION Status: Acute Current Visit: No (3) Acute on chronic respiratory failure SNOMED Code(s): 65217665 Code(s): J96.20 - ACUTE AND CHR RESP FAILURE, UNSP W HYPOXIA OR HYPERCAPNIA Status: Acute Current Visit: No Qualifiers: Respiratory failure complication: hypoxia and hypercapnia Qualified Code(s) : J96.21 - Acute and chronic respiratory failure with hypoxia; J96.22 - Acute and chronic respiratory failure with hypercapnia (4) Acute and chronic respiratory failure SNOMED Code(s): 06184040 Code(s): J96.20 - ACUTE AND CHR RESP FAILURE, UNSP W HYPOXIA OR HYPERCAPNIA Status: Acute Current Visit: Yes (5) Underweight due to inadequate caloric intake SNOMED Code(s): 566113369, 973303930 Code(s): R63.6 - UNDERWEIGHT Status: Acute Current Visit: Yes - Problem List Review Problem List Initiated/Reviewed/Updated: Yes - My Orders Last 24 Hours: My Active Orders 12/31/19 11:13 Albuterol [Proventil HFA] 0 gm INH Q4H PRN Fluticasone/Salmeterol 2 puff INH BID PRN Melatonin 3 mg PO BEDTIME PRN 12/31/19 11:30 Pharmacy to Dose - Warfarin 1 dose .XX ASDIRECTED 12/31/19 11:33 Consult to Hospice [CONS] Routine 12/31/19 11:42 Blood Glucose Check, Bedside [RC] 07 12/31/19 13:30 Dextrose 5%-0.9% NaCl with KCl [D5 NS with 20 mEq KCl] 1,000 ml IV ASDIRECTED 12/31/19 15:37 Admission Diagnosis [ADT] Routine Patient Status [ADT] Routine 12/31/19 17:24 Vital Signs [RC] 00,04,08,12,16,20 12/31/19 19:08 LORazepam [Ativan] 1 mg PO Q8H PRN 12/31/19 19:28 Code Status [Resuscitation Status] Routine 12/31/19 19:30 Azithromycin [Zithromax] 500 mg Sodium Chloride 0.9% [Normal Saline (AdvBag)] 250 ml IV Q24H methylPREDNISolone Sod Succ [Solu-MEDROL] 40 mg IVPUSH Q8H 12/31/19 21:00 rOPINIRole [Requip] 1 mg PO BEDTIME 12/31/19 Lunch Regular Diet [DIET] 01/01/20 06:00 Levothyroxine [Synthroid] 50 mcg PO ACBRK 01/01/20 09:00 Multivitamins,Therapeutic [Thera] 1 each PO DAILY Nicotine [Habitrol] 21 mg TRDERM DAILY Sertraline [Zoloft] 50 mg PO DAILY Tiotropium [Spiriva HandiHaler] 18 mcg INH DAILY atorvaSTATin [Lipitor] 20 mg PO DAILY 05/06/20 14:00 Warfarin [Coumadin] 2.5 mg PO ONETIME ONE 01/02/20 07:00 INR,PT,PROTHROMBIN TIME [COAG] DAILY 01/02/20 09:00 Remove Patch 1 ea TRDERM DAILY 01/03/20 07:00 INR,PT,PROTHROMBIN TIME [COAG] DAILY 01/04/20 07:00 INR,PT,PROTHROMBIN TIME [COAG] DAILY 01/05/20 07:00 INR,PT,PROTHROMBIN TIME [COAG] DAILY - Plan Plan:: #Acute on chronic hypoxic respiratory failure -Improved -Patient back to her baseline of 3 L via NC -Continue supplemental oxygen #COPD exacerbation -Continue breathing treatment -Solu-Medrol -Azithromycin #Hypokalemia -Replace PO #Underweight due to poor caloric intake -Encourage to eat -Insure qmeal #Generalized weakness -PT/OT #General diet #Code -DNI/DNR. requesting home hospice -Palliative care consulted
[2020-01-01] MEDS ORDERED: Warfarin 2.5 MG Tab PO ONE (14:00)
[2020-01-01] MEDS: Phosphorus #1 250 MG Tab PO SCH ×2 (14:46→20:31)
[2020-01-01] MEDS ORDERED: LORazepam 0.5 MG Tab PO ONE (18:35)
[2020-01-01] MEDS: Doxycycline 100 MG Cap PO SCH (20:32)
[2020-01-01] MEDS: rOPINIRole 2 MG Tab PO SCH (20:33)
[2020-01-01] MEDS ORDERED: QUEtiapine 25 MG Tab PO SCH (21:00)
[2020-01-02] MEDS: methylPREDNISolone Sodium Succinate 40 MG/1 ML SDV IVPUSH SCH (03:32)
[2020-01-02] MEDS: Levothyroxine 50 MCG Tab PO SCH (07:36)
[2020-01-02 07:58] VITALS: BP 161/69; PULSE 85
[2020-01-02] MEDS: Phosphorus #1 250 MG Tab PO SCH (08:32)
[2020-01-02] MEDS: Multivitamins,Therapeutic Tab PO SCH (08:32)
[2020-01-02] MEDS: atorvaSTATin 20 MG Tab PO SCH (08:33)
[2020-01-02] MEDS: Doxycycline 100 MG Cap PO SCH (08:33)
[2020-01-02] MEDS: Sertraline 50 MG Tab PO SCH (08:34)
[2020-01-02] MEDS: Tiotropium Inhaler 18 MCG Inhalation Powder Cap Kit of 5 INH SCH (08:35)
[2020-01-02] MEDS: Nicotine 21 MG/24 Hr Patch TRDERM SCH (08:41)
--- NOTE | 2020-01-02 09:02 | PCM.DCSUM1 ---
Discharge Summary - Hospital Course HPI Initial Comments: Cade is 79 y/o F with PMH of Advanced dementia, COPD on home oxygen 3 L, h/o CVA on chronic anticoagulation with warfarin who was brought to the ED by [facility] after called 911 due to patient having low oxygen saturation and SOB. Cxr was similar to previous. She was admitted for COPD exacerbation. Patient requested patient to be discharge with home hospice. Her symptoms improved with treatment. She is back on her baseline oxygen requirement. Palliative care was consulted. patient was discharged home on home hospice. Diagnosis: Stroke: No - Discharge Data Discharge Date: 01/02/20 Discharge Disposition: DC/Tfer to Hospice - Home 50 Condition: Good - Referral to Home Health Primary Care Physician: PCP Unobtainable - Discharge Diagnosis/Problem(s) (1) Acute exacerbation of chronic obstructive airways disease SNOMED Code(s): 605964423 ICD Code: J44.1 - CHRONIC OBSTRUCTIVE PULMONARY DISEASE W (ACUTE) EXACERBATION Status: Acute Current Visit: No (2) Acute exacerbation of chronic obstructive pulmonary disease (COPD) SNOMED Code(s): 644358974 ICD Code: J44.1 - CHRONIC OBSTRUCTIVE PULMONARY DISEASE W (ACUTE) EXACERBATION Status: Acute Current Visit: No (3) Acute on chronic respiratory failure SNOMED Code(s): 85766868 ICD Code: J96.20 - ACUTE AND CHR RESP FAILURE, UNSP W HYPOXIA OR HYPERCAPNIA Status: Acute Current Visit: No Qualifiers: Respiratory failure complication: hypoxia and hypercapnia Qualified Code(s) : J96.21 - Acute and chronic respiratory failure with hypoxia; J96.22 - Acute and chronic respiratory failure with hypercapnia (4) Acute and chronic respiratory failure SNOMED Code(s): 21144356 ICD Code: J96.20 - ACUTE AND CHR RESP FAILURE, UNSP W HYPOXIA OR HYPERCAPNIA Status: Acute Current Visit: Yes (5) Underweight due to inadequate caloric intake SNOMED Code(s): 821725064, 102987094 ICD Code: R63.6 - UNDERWEIGHT Status: Acute Current Visit: Yes - Patient Summary/Data Consults: Consultations 12/31/19 11:33 Consult to Hospice [CONS] Routine 01/01/20 11:01 PT Evaluation and Treatment [CONS] Routine - Patient Instructions Diet: Usual Diet as Tolerated Activity: As Tolerated Driving: Do Not Drive Showering/Bathing: May Shower - Discharge Plan *PRESCRIPTION DRUG MONITORING PROGRAM REVIEWED*: Not Applicable *COPY OF PRESCRIPTION DRUG MONITORING REPORT IN PATIENT RODNEY: Not Applicable Prescriptions/Med Rec: Doxycycline [Vibramycin] 100 mg PO Q12HR 5 Days #10 cap Phosphorus #1 [Neutra-Phos] 250 mg PO TID #15 tablet QUEtiapine [SEROquel] 12.5 mg PO BEDTIME #30 tablet Home Medications: Home Meds Fluticasone/Salmeterol [Advair 100-50] 2 puff INH BID 07/28/13 [History] Tiotropium [Spiriva Handihaler] 1 puff INH DAILY 07/28/13 [History] Albuterol [Proventil HFA] 2 puff INH Q4H PRN 03/26/14 [History] Levothyroxine [Synthroid] 50 mcg PO ACBRK 03/26/14 [History] Glucosam/Chond/Collagen/Hyalur [Glucosamine Chondroitin] 2 tab PO DAILY [History] Ipratropium/Albuterol Sulfate [Duoneb 0.5 mg-3 mg/3 ml Soln] 1 ampule INH Q4HR PRN 05/01/14 [History] Multivitamin [Multivitamins] 1 tab PO DAILY 05/01/14 [History] Rolaids 2 tab.chew CHEW ASDIRECTED PRN 05/01/14 [History] atorvaSTATin Calcium [Atorvastatin Calcium] 20 mg PO DAILY 12/21/15 [History] Melatonin 3 mg PO BEDTIME PRN #30 tablet 10/11/19 [Rx] Sertraline [Zoloft] 50 mg PO DAILY #30 tablet 10/11/19 [Rx] predniSONE [Prednisone] 40 mg PO DAILY #10 tablet 10/11/19 [Rx] rOPINIRole [Requip] 1 mg PO BEDTIME #30 tab 10/11/19 [Rx] LORazepam [Ativan] 0.5 mg PO QPM PRN 12/31/19 [History] Warfarin [Coumadin] 5 mg PO ASDIRECTED 12/31/19 [History] Doxycycline [Vibramycin] 100 mg PO Q12HR 5 Days #10 cap 01/02/20 [Rx] Phosphorus #1 [Neutra-Phos] 250 mg PO TID #15 tablet 01/02/20 [Rx] QUEtiapine [SEROquel] 12.5 mg PO BEDTIME #30 tablet 01/02/20 [Rx] Oxygen Therapy Mode: Nasal Cannula (3 L) Patient Handouts: Chronic Obstructive Pulmonary Disease Exacerbation, Easy-to- Read, Doxycycline tablets or capsules, Hospice - Discharge Summary/Plan Comment DC Time >30 min.: Yes - General Info Date of Service: 01/02/20 Admission Dx/Problem (Free Text: Acute on chronic respiratory failure with hypoxia due COPD exacerbation Functional Status: Reports: Pain Controlled - Review of Systems General: Reports: No Symptoms HEENT: Reports: No Symptoms Pulmonary: Reports: No Symptoms Cardiovascular: Reports: No Symptoms Gastrointestinal: Reports: No Symptoms Genitourinary: Reports: No Symptoms Musculoskeletal: Reports: No Symptoms Skin: Reports: No Symptoms Neurological: Reports: No Symptoms Psychiatric: Reports: No Symptoms - Patient Data Vitals - Most Recent: Last Vital Signs Temp 97.9 F 01/02/20 07:57 Pulse 85 01/02/20 07:57 Resp 20 01/02/20 07:57 BP 161/69 H 01/02/20 07:57 Pulse Ox 91 L 01/02/20 07:57 Weight - Most Recent: 87 lb 14.4 oz I&O - Last 24 hours: Intake & Output 01/01/20 01/02/20 01/02/20 22:59 06:59 14:59 Intake Total 980 2243 180 Output Total 600 Balance 380 2243 180 Lab Results - Last 24 hrs: Laboratory Results - last 24 hr 01/01/20 01/01/20 01/02/20 Range/Units 08:52 08:52 07:40 PT 23.9 H D (9.0-12.0) SEC INR 2.5 H (0.9-1.2) Sodium 141 (136-145) mmol/L Potassium 3.9 (3.5-5.1) mmol/L Chloride 102 (98-107) mmol/L Carbon Dioxide 37 H (21-32) mmol/L Anion Gap 5.9 L (7-13) mEq/L BUN 17 (7-18) mg/dL Creatinine 0.69 (0.55-1.02) mg/dL Est Cr Clr Drug Dosing 42.98 mL/min Estimated GFR (MDRD) > 60 Glucose 193 H (74-99) mg/dL POC Glucose 135 H (83-110) mg/dl Calcium 8.3 L (8.5-10.1) mg/dL Phosphorus 2.3 L (2.6-4.7) mg/dL Magnesium 1.8 (1.8-2.4) mg/dL 01/02/20 Range/Units 08:20 PT 22.3 H (9.0-12.0) SEC INR 2.4 H (0.9-1.2) Sodium (136-145) mmol/L Potassium (3.5-5.1) mmol/L Chloride (98-107) mmol/L Carbon Dioxide (21-32) mmol/L Anion Gap (7-13) mEq/L BUN (7-18) mg/dL Creatinine (0.55-1.02) mg/dL Est Cr Clr Drug Dosing mL/min Estimated GFR (MDRD) Glucose (74-99) mg/dL POC Glucose (83-110) mg/dl Calcium (8.5-10.1) mg/dL Phosphorus (2.6-4.7) mg/dL Magnesium (1.8-2.4) mg/dL [facility] Results - Last 24 hrs: Microbiology 12/31/19 08:17 Aerobic Blood Culture - Preliminary Blood - Venous NO GROWTH AFTER 2 DAYS Anaerobic Blood Culture - Preliminary NO GROWTH AFTER 2 DAYS 12/31/19 09:05 Aerobic Blood Culture - Preliminary Blood - Venous - Lab Draw NO GROWTH AFTER 1 DAY Anaerobic Blood Culture - Preliminary NO GROWTH AFTER 1 DAY Med Orders - Current: Current Medications Albuterol (Proventil Hfa) 0 gm INH Q4H PRN PRN Reason: Shortness of Breath Last Admin: 12/31/19 17:00 Dose: 2 puff Atorvastatin Calcium (Lipitor) 20 mg PO DAILY [facility] Last Admin: 01/02/20 08:33 Dose: 20 mg Doxycycline Hyclate (Vibramycin) 100 mg PO Q12HR [facility] Last Admin: 01/02/20 08:33 Dose: 100 mg Potassium Chloride/Dextrose/Sod Cl (D5 Ns With 20 Meq Kcl) 1,000 mls @ 75 mls/ hr IV ASDIRECTED [facility] Last Admin: 01/01/20 18:48 Dose: 75 mls/hr Levothyroxine Sodium (Synthroid) 50 mcg PO ACBRK [facility] Last Admin: 01/02/20 07:36 Dose: 50 mcg Methylprednisolone Sodium Succinate (Solu-Medrol) 40 mg IVPUSH Q8H [facility] Last Admin: 01/02/20 03:32 Dose: 40 mg Miscellaneous Information (Remove Patch) 1 ea TRDERM DAILY [facility] Last Admin: 01/02/20 08:40 Dose: 1 ea Multivitamins (Thera) 1 each PO DAILY [facility] Last Admin: 01/02/20 08:32 Dose: 1 each Nicotine (Habitrol) 21 mg TRDERM DAILY [facility] Last Admin: 01/02/20 08:41 Dose: Not Given Non-Formulary Medication (Fluticasone/Salmeterol) 2 puff INH BID PRN PRN Reason: Congestion Quetiapine Fumarate (Seroquel) 12.5 mg PO BEDTIME [facility] Last Admin: 01/01/20 20:31 Dose: 12.5 mg Ropinirole HCl (Requip) 1 mg PO BEDTIME [facility] Last Admin: 01/01/20 20:33 Dose: 1 mg Sertraline HCl (Zoloft) 50 mg PO DAILY [facility] Last Admin: 01/02/20 08:34 Dose: 50 mg Sodium Phosphate (Neutra-Phos) 250 mg PO TID [facility] Last Admin: 01/02/20 08:32 Dose: 250 mg Tiotropium [place] (Spiriva Handihaler) 18 mcg INH DAILY [facility] Last Admin: 01/02/20 08:35 Dose: 1 cap Warfarin Sodium (Pharmacy To Dose - Warfarin) 1 dose .XX ASDIRECTED [facility] Discontinued Medications Albuterol/Ipratropium (Duoneb 3.0-0.5 Mg/3 Ml) 3 ml NEB ONETIME ONE Stop: 12/31/19 08:11 Last Admin: 12/31/19 09:42 Dose: 3 ml Piperacillin Sod/Tazobactam (Sod 3.375 gm/ Sodium Chloride) 100 mls @ 200 mls/ hr IV ONETIME ONE Stop: 12/31/19 08:39 Last Admin: 12/31/19 09:40 Dose: 200 mls/hr Azithromycin 500 mg/ Sodium (Chloride) 250 mls @ 250 mls/hr IV Q24H [facility] Last Infusion: 12/31/19 21:54 Dose: Infused Lorazepam (Ativan) 0.5 mg PO BEDTIME PRN PRN Reason: Anxiety Lorazepam (Ativan) 1 mg PO Q8H PRN PRN Reason: Agitation Last Admin: 12/31/19 20:52 Dose: 1 mg Lorazepam (Ativan) 0.5 mg PO ONETIME ONE Stop: 01/01/20 18:36 Last Admin: 01/01/20 18:45 Dose: 0.5 mg Melatonin (Melatonin) 3 mg PO BEDTIME PRN PRN Reason: Insomnia Last Admin: 12/31/19 20:51 Dose: 3 mg Methylprednisolone Sodium Succinate (Solu-Medrol) 125 mg IVPUSH ONETIME ONE Stop: 12/31/19 08:11 Last Admin: 12/31/19 09:40 Dose: 125 mg Potassium Chloride (Klor-Con 10) 40 meq PO BID [facility] Last Admin: 12/31/19 13:33 Dose: Not Given Sodium Chloride (Saline Flush) 10 ml FLUSH ASDIRECTED PRN PRN Reason: Keep Vein Open Last Admin: 01/01/20 03:26 Dose: 10 ml Warfarin Sodium (Coumadin) 5 mg PO ONETIME ONE Stop: 12/31/19 14:31 Last Admin: 12/31/19 14:52 Dose: 5 mg Warfarin Sodium (Coumadin) 2.5 mg PO ONETIME ONE Stop: 01/01/20 14:01 Last Admin: 01/01/20 14:46 Dose: 2.5 mg - Exam General: Reports: Alert, Oriented HEENT: Reports: Pupils Equal, Pupils Reactive, EOMI, Mucous Membr. Moist/[place] Neck: Reports: Supple Lungs: Reports: Clear to Auscultation, Normal Respiratory Effort Cardiovascular: Reports: Regular Rate, Regular Rhythm GI/Abdominal Exam: Normal Bowel Sounds, Soft, Non-Tender, No Organomegaly, No Distention, No Abnormal Bruit, No Mass, Pelvis Stable (Female) Exam: Normal External Exam, Normal Speculum Exam, Normal Bimanual Exam Rectal (Female) Exam: Normal Exam, Normal Rectal Tone Back Exam: Reports: Normal Inspection, Full Range of Motion Extremities: Normal Inspection, Normal Range of Motion, Non-Tender, No Pedal Edema, Normal Capillary Refill Skin: Reports: Warm, Dry, Intact Wound/Incisions: Reports: Healing Well Neurological: Reports: No New Focal Deficit Psy/Mental Status: Reports: Alert, Normal Affect, Normal Mood
[2020-01-02] MEDS ORDERED: Warfarin 2.5 MG Tab PO ONE (14:00)
== END 2020-01-02 10:30 | disposition hospice, home (50) | DRG 189 ==
LOC: DL.ED 08:05 → DL.MS 10:20 → UNDOADMIN 10:20 → DL.MS 15:37
PROVIDERS: ADMIT Student in an Organized Health Care Education/Training Program; ATTEND Student in an Organized Health Care Education/Training Program
PROC: 8E0ZXY6 Isolation (ICD-10-PCS; principal; 2019-12-31)
DX: J96.21 Acute and chronic respiratory failure with hypoxia (principal); J44.1 Chronic obstructive pulmonary disease with (acute) exacerbation; H54.7 Unspecified visual loss; H91.90 Unspecified hearing loss, unspecified ear; Z68.1 Body mass index [BMI] 19.9 or less, adult; J96.22 Acute and chronic respiratory failure with hypercapnia; Z66 Do not resuscitate; R63.6 Underweight; Z86.73 Personal history of transient ischemic attack (TIA), and cerebral infarction without residual deficits; F03.90 Unspecified dementia, unspecified severity, without behavioral disturbance, psychotic disturbance, mood disturbance, and anxiety; I48.91 Unspecified atrial fibrillation; Z20.828 Contact with and (suspected) exposure to other viral communicable diseases; E03.9 Hypothyroidism, unspecified; E55.9 Vitamin D deficiency, unspecified; D50.9 Iron deficiency anemia, unspecified; F17.210 Nicotine dependence, cigarettes, uncomplicated; E78.00 Pure hypercholesterolemia, unspecified; K21.9 Gastro-esophageal reflux disease without esophagitis; Z99.81 Dependence on supplemental oxygen; F41.9 Anxiety disorder, unspecified; F32.9 Major depressive disorder, single episode, unspecified; M19.90 Unspecified osteoarthritis, unspecified site; F17.200 Nicotine dependence, unspecified, uncomplicated; E87.6 Hypokalemia; Z79.01 Long term (current) use of anticoagulants; Z79.890 Hormone replacement therapy; Z79.52 Long term (current) use of systemic steroids; Z79.899 Other long term (current) drug therapy; Z28.82 Immunization not carried out because of caregiver refusal; Z71.6 Tobacco abuse counseling
CPT/HCPCS: 36415; 71045; 80053; 83605; 85025; 85610; 87040 ×2; 87804 ×2; 93005; 94640; 96365; 96375; 99285; A9270; J2543; J2930; J3480; J7050; U0002; 80048; 82962; 83735; 84100; 99284; J0456; J2920; J7620-GY